=== PATIENT | female | born 1960 | race Hispanic/Latino ===

== ENCOUNTER 2022-04-28 13:15 | Inpatient (IN) | payer MEDICARE ==
[2022-04-28] MEDS ORDERED: IPRATROPIUM 0.02% NEBU 2.5 ML IH ONE (13:53)
[2022-04-28] MEDS ORDERED: ALBUTEROL 2.5 MG/3 ML NEBU IH ONE (13:53)
[2022-04-28] MEDS ORDERED: methylPREDNISolone Sod Succinate 125 MG/2 ML INJ IV ONE (13:53)
[2022-04-28] MEDS ORDERED: MAGNESIUM SULFATE 2 GM/50 ML BAG IV ONE (13:56)
--- NOTE | 2022-04-28 14:00 | Emergency Department Report ---
<RANJAN HERNÁNDEZ - Last Filed: 04/28/22 16:04> ED Shortness of Breath HPI - General Chief Complaint: Dyspnea/Respdistress Stated Complaint: JAIME Time Seen by Provider: 04/28/22 13:25 Source: patient, EMS Mode of arrival: Stretcher Limitations: No Limitations - History of Present Illness Initial Comments: This is a 61-year-old female with a history of end-stage renal disease (dialysis dependent) who [facility] a [facility] for the last 2 weeks. Patient presents to the emergency department complaining of shortness of breath which started approximately 2 days ago. Patient reports a "wet" cough, that she still is unable to expectorate. Patient denies chest pain, fever, chills. Patient denies worsening of lower extremity edema or lower extremity pain. Patient reports that exertion and movement makes the shortness of breath worse, and the oxygen that she was put on prior to coming to the emergency department has helped with her shortness of breath. Patient was placed on a nonrebreather at the penitentiary, as she was hypoxic at the penitentiary and remained hypoxic abnormality. Patient is not home O2 dependent. Patient has not missed any dialysis, and her last one was on Thursday. Patient was tested for and confirmed positive for COVID-19, today. - Related Data Allergies Allergy/AdvReac Type Severity Reaction Status Date / Time NSAIDS (Non-Steroidal Allergy Rash Verified 04/28/22 13:30 Anti-Inflamma Sulfa (Sulfonamide Allergy Rash Verified 04/28/22 13:30 Antibiotics) ED Review of Systems Comment: All other systems reviewed and negative Constitutional: denies: chills, fever, weakness Eyes: denies: eye pain, eye discharge, vision change ENT: denies: ear pain, throat pain Respiratory: cough, shortness of breath, SOB with exertion, SOB at rest, wheezing Cardiovascular: edema. denies: chest pain, palpitations Endocrine: no symptoms reported Gastrointestinal: denies: abdominal pain, nausea, diarrhea Genitourinary: denies: urgency, dysuria, discharge Musculoskeletal: denies: back pain, joint swelling, arthralgia Skin: denies: rash, lesions Neurological: denies: headache, weakness, paresthesias Psychiatric: denies: anxiety, depression Hematological/Lymphatic: denies: easy bleeding, easy bruising ED Past Medical Hx - Past Medical History Previous Medical History?: Yes Hx Hypertension: Yes Hx Congestive Heart Failure: No Hx Renal Disease: Yes Additional medical history: ESRD, Hypothyroidism - Social History Other Social History: Has lived in a penitentiary for the last 2 weeks ED Physical Exam - General Limitations: No Limitations, Physical Limitation General appearance: alert, in no apparent distress, obese - Head Head exam: Present: atraumatic, normocephalic, normal inspection - Eye Eye exam: Present: normal appearance, PERRL, EOMI - ENT ENT exam: Present: mucous membranes moist - Neck Neck exam: Present: normal inspection, full ROM - Respiratory Respiratory exam: Present: normal lung sounds bilaterally, wheezes, rales, rhonchi, prolonged expiratory. Absent: respiratory distress - Cardiovascular Cardiovascular Exam: Present: regular rate, normal rhythm, tachycardia. Absent: systolic murmur, diastolic murmur, rubs, gallop - GI/Abdominal GI/Abdominal exam: Present: soft, normal bowel sounds - Extremities Exam Extremities exam: Present: normal inspection, pedal edema (2+ pitting edema bilaterally; patient reports that this is chronic). Absent: calf tenderness - Back Exam Back exam: Present: normal inspection - Neurological Exam Neurological exam: Present: alert, oriented X3, CN II-XII intact. Absent: normal gait - Psychiatric Psychiatric exam: Present: normal affect, normal mood, flat affect. Absent: depressed, suicidal ideation - Skin Skin exam: Present: warm, dry, intact, normal color. Absent: rash ED Medical Decision Making - EKG Data EKG shows normal: sinus rhythm Rate: normal - EKG Data When compared to previous EKG there are: previous EKG unavailable Interpretation: nonspecific ST-T wave geovanni, other (PACs, Q waves in 3 and aVF concerning for remote inferior infarct) - Differential Diagnosis Viral pneumonia, bacterial pneumonia, fluid overload, COPD,ACS ED Disposition Clinical Impression: Shortness of breath, COVID-19, Hypoxia CHF (congestive heart failure) Qualifiers: Heart failure type: unspecified Heart failure chronicity: unspecified Qualified Code(s): I50.9 - Heart failure, unspecified Disposition: 09 ADMITTED INPATIENT Does the pt Need Aspirin: No Condition: Serious Referrals: RAQUEL GAR MD [Primary Care Provider] - 3-5 Days <UNIQUE SHEFFIELD - Last Filed: 04/28/22 22:37> ED Review of Systems ROS: Stated complaint: JAIME Other details as noted in HPI ED Course Vital Signs 04/28/22 04/28/22 04/28/22 13:22 13:33 13:45 Temperature 99 F Pulse Rate 92 H 97 H 95 H Pulse Rate [ Anterior Bilateral Throughout] Respiratory 18 24 22 Rate Respiratory Rate [Anterior Bilateral Throughout] Blood Pressure 140/74 Blood Pressure 130/73 [Left] O2 Sat by Pulse 94 97 86 Oximetry 04/28/22 04/28/22 04/28/22 13:50 13:56 14:01 Temperature Pulse Rate 100 H 95 H Pulse Rate [ Anterior Bilateral Throughout] Respiratory 26 H 31 H Rate Respiratory Rate [Anterior Bilateral Throughout] Blood Pressure 140/74 Blood Pressure [Left] O2 Sat by Pulse 92 98 93 Oximetry 04/28/22 04/28/22 04/28/22 14:12 14:15 14:31 Temperature Pulse Rate 96 H 93 H Pulse Rate [ 97 H Anterior Bilateral Throughout] Respiratory 25 H 15 Rate Respiratory 20 Rate [Anterior Bilateral Throughout] Blood Pressure 135/75 135/75 Blood Pressure [Left] O2 Sat by Pulse 94 87 Oximetry 04/28/22 04/28/22 04/28/22 14:45 15:01 15:15 Temperature Pulse Rate 90 92 H 86 Pulse Rate [ Anterior Bilateral Throughout] Respiratory 24 15 21 Rate Respiratory Rate [Anterior Bilateral Throughout] Blood Pressure 127/68 135/75 127/74 Blood Pressure [Left] O2 Sat by Pulse 92 93 Oximetry 04/28/22 04/28/22 04/28/22 15:31 15:45 16:01 Temperature Pulse Rate 90 90 89 Pulse Rate [ Anterior Bilateral Throughout] Respiratory 19 27 H 24 Rate Respiratory Rate [Anterior Bilateral Throughout] Blood Pressure 127/74 137/74 137/74 Blood Pressure [Left] O2 Sat by Pulse Oximetry 04/28/22 04/28/22 04/28/22 16:15 16:31 16:45 Temperature Pulse Rate 87 88 89 Pulse Rate [ Anterior Bilateral Throughout] Respiratory 21 15 22 Rate Respiratory Rate [Anterior Bilateral Throughout] Blood Pressure 137/71 137/71 145/70 Blood Pressure [Left] O2 Sat by Pulse Oximetry 04/28/22 04/28/22 04/28/22 17:01 17:15 17:31 Temperature Pulse Rate 89 91 H 87 Pulse Rate [ Anterior Bilateral Throughout] Respiratory 24 12 11 L Rate Respiratory Rate [Anterior Bilateral Throughout] Blood Pressure 145/70 144/78 144/78 Blood Pressure [Left] O2 Sat by Pulse Oximetry 04/28/22 04/28/22 04/28/22 17:45 19:37 21:21 Temperature Pulse Rate 84 93 H 93 H Pulse Rate [ Anterior Bilateral Throughout] Respiratory 23 20 20 Rate Respiratory Rate [Anterior Bilateral Throughout] Blood Pressure 144/76 Blood Pressure 124/70 158/85 [Left] O2 Sat by Pulse 91 88 Oximetry - Reevaluation(s) Reevaluation #1: 04/28/22 20:30 Pt signed to me at shift change at 15:00 PM -with dyspnea -lab reviewed and noted with elevated BNP at 13, 672 with CXR with vascular congestion with cardiomegaly --consisted with heart failure-- also noted with acute renal failure with BUN/Cr 39/3.7 and could also be as a result of dehydration-- Pt is also diagnosed with Covid 19 today. Given 40 mg IV lasix for the congestion and will consider admission to the ospitalist considering this patient age and clinical picture. 04/28/22 22:33 Dr Faust consulted who accept pt for further evaluation and treatment - Consultations Consultation #1: 04/28/22 22:34 Dr Faust ED Medical Decision Making - Lab Data Result diagrams: 04/28/22 14:49 04/28/22 14:49 Critical Care Time: Yes (60) Critical care time in (mins) excluding proc time.: 60 Critical care attestation.: If time is entered above; I have spent that time in minutes in the direct care of this critically ill patient, excluding procedure time. Pt present with SOB and noted to have Covid 19 and acute CHF and due to high probability of clinically significant, life threatening deterioration, this patient required my highest level of preparedness to intervene emergently and I personally spent this critical care time directly and personally managing this patient. This critical care time included obtaining a history; examining this patient; pulse oximetry ; ordering and review of studies ; arranging urgent treatment with development of a management plan ; evaluation of patient's response to treatment ; frequent reassessment ; and, discussion with other providers. This critical care time was performed to assess and manage the high probability of imminent, life-threatening deterioration that could result in m ultiple organ damage if not done in a timely fashion. ED Disposition Is pt being admited?: No Time of Disposition: 22:37
--- NOTE | 2022-04-28 14:43 | XRay Report ---
CHEST 1 VIEW 04/28/2022 1:36 PM INDICATION / CLINICAL INFORMATION: Dyspnea. COMPARISON: None available. FINDINGS: SUPPORT DEVICES: Right IJ CVL tip projects over the superior cavoatrial junction. HEART / MEDIASTINUM: Mild cardiomegaly. LUNGS / PLEURA: Bibasilar opacities, likely mild atelectasis. No pneumothorax. ADDITIONAL FINDINGS: No significant additional findings. Signer Name: Vidal Hernadez MD Signed: 04/28/2022 2:39 PM Workstation Name: [employer]
[2022-04-28 17:46] LABS: Albumin 2.8 g/dL (3.9-5); Calcium 8.2 mg/dL (8.4-10.2)
[2022-04-28 17:56] LABS: Hematocrit 30.4 % (30.3-42.9); Hemoglobin 9.6 gm/dl (10.1-14.3); Mean Corpuscular HGB Conc 31 % (30-34); Mean Corpuscular Volume 99 fl (79-97); Platelet Count 187 K/mm3 (140-440); Red Blood Count 3.08 M/mm3 (3.65-5.03); Red Cell Distribution Width 17.7 % (13.2-15.2)
[2022-04-28 18:07] LABS: INR 0.91 (0.87-1.13)
[2022-04-28 18:08] LABS: Partial Thromboplastin Time 33.8 Sec. (24.2-36.6)
[2022-04-28 19:16] LABS: Chol/HDL Ratio 2.4 %
[2022-04-28 19:55] LABS: Anisocytosis 1+; Band Neutrophils # (Manual) 1.2 K/mm3; Basophils % (Manual) 0 % (0.0-1.8); Eosinophils % (Manual) 0 % (0.0-4.3); Platelet Estimate Consistent w Auto; Total Cells Counted 100
[2022-04-28] MEDS ORDERED: FUROSEMIDE 40 MG/4 ML INJ IV ONE (20:51)
[2022-04-28] MEDS ORDERED: ACETAMINOPHEN 325 MG TAB PO PRN (22:37)
[2022-04-28] MEDS ORDERED: MORPHINE 2 MG/1 ML INJ IV PRN ×2 (22:37→23:21)
[2022-04-28] MEDS ORDERED: ONDANSETRON 4 MG/2 ML INJ IV PRN ×2 (22:37→23:21)
[2022-04-28] MEDS ORDERED: MORPHINE 4 MG/1 ML INJ IV PRN (23:21)
[2022-04-28] MEDS ORDERED: ALBUTEROL 2.5 MG/3 ML NEBU IH PRN (23:21)
--- NOTE | 2022-04-28 23:33 | History and Physical Report ---
History of Present Illness Date of examination: 04/28/22 Date of admission: 04/28/22 22:37 Chief complaint: Dyspnea, respiratory distress History of present illness: 61-year-old female with a history of end-stage renal disease (dialysis dependent) who lives in a custodial for rehabilitation for the last 2 weeks was brought to the emergency department complaining of shortness of breath which started approximately 2 days ago. Patient reports a "wet" cough, that she still is unable to expectorate. Patient denies chest pain, fever, chills. Patient denies worsening of lower extremity edema or lower extremity pain. Patient reports that exertion and movement makes the shortness of breath worse, and the oxygen that she was put on prior to coming to the emergency department has helped with her shortness of breath. Patient was placed on a nonrebreather at the custodial, as she was hypoxic at the custodial . Patient is not home O2 dependent. Patient has not missed any dialysis, and her last one was on Thursday. Patient was tested for and confirmed positive for COVID-19, today. In the emergency room patient is found to have BUN of 39, creatinine 3.7, troponin 0.075 and proBNP 13457, chest x-ray shows bibasilar opacities, likely mild atelectasis.'s were going to admit the patient we will put the patient on neb treatment steroid antibiotic consult infectious disease and nephrology Past History Past Medical History: ESRD, hypertension, hypothyroidism, renal failure Past Surgical History: No surgical history Social history: no significant social history Family history: hypertension Medications and Allergies Allergies Allergy/AdvReac Type Severity Reaction Status Date / Time NSAIDS (Non-Steroidal Allergy Rash Verified 04/28/22 13:30 Anti-Inflamma Sulfa (Sulfonamide Allergy Rash Verified 04/28/22 13:30 Antibiotics) Home Medications Medication Instructions Recorded Confirmed Last Taken Type Ascorbic Acid [Vitamin C] 500 mg PO DAILY 04/28/22 04/28/22 Unknown History Ferrous Sulfate [Ferrous Sulfate 324 mg PO DAILY 04/28/22 04/28/22 Unknown History 324 MG] Levothyroxine Sodium 200 mcg PO DAILY 04/28/22 04/28/22 Unknown History [Levothyroxine] Venlafaxine [Effexor 37.5mg tab] 37.5 mg PO QDAY 04/28/22 04/28/22 Unknown History carvediloL [Coreg] 12.5 mg PO BID 04/28/22 04/28/22 Unknown History sevelamer HCL [Sevelamer HCl] 800 mg PO DAILY 04/28/22 04/28/22 Unknown History Active Meds: Active Medications Acetaminophen (Acetaminophen 325 Mg Tab) 650 mg PO Q4H PRN PRN Reason: Pain MILD(1-3)/Fever >100.5/KENDALL Morphine Sulfate (Morphine 2 Mg/1 Ml Inj) 2 mg IV Q4H PRN PRN Reason: Pain, Moderate (4-6) Ondansetron HCl (Ondansetron 4 Mg/2 Ml Inj) 4 mg IV Q8H PRN PRN Reason: Nausea And Vomiting Sodium Chloride (Sodium Chloride 0.9% 10 Ml Flush Syringe) 10 ml IV BID TOSHIA Sodium Chloride (Sodium Chloride 0.9% 10 Ml Flush Syringe) 10 ml IV PRN PRN PRN Reason: LINE FLUSH Review of Systems All systems: negative Constitutional: fatigue, malaise, lethargy Cardiovascular: edema, shortness of breath, dyspnea on exertion Respiratory: shortness of breath, dyspnea on exertion Exam - Constitutional Vitals: Temp Pulse Resp BP Pulse Ox 99 F 93 H 20 158/85 88 04/28/22 13:22 04/28/22 21:21 04/28/22 21:21 04/28/22 21:21 04/28/22 21:21 General appearance: Present: no acute distress, well-nourished - EENT Eyes: Present: PERRL ENT: hearing intact, clear oral mucosa - Neck Neck: Present: supple, normal ROM - Respiratory Respiratory effort: normal Respiratory: bilateral: diminished - Cardiovascular Heart Sounds: Present: S1 & S2. Absent: rub, click - Extremities Extremities: pulses symmetrical, No edema Peripheral Pulses: within normal limits - Abdominal General gastrointestinal: Present: soft, non-tender, non-distended, normal bowel sounds Female genitourinary: Present: normal - Integumentary Integumentary: Present: clear, warm, dry - Musculoskeletal Musculoskeletal: gait normal, strength equal bilaterally - Psychiatric Psychiatric: appropriate mood/affect, intact judgment & insight - Neurologic Neurologic: CNII-XII intact, moves all extremities HEART Score - HEART Score Troponin: Troponin T 0.075 ng/mL (0.00-0.029) H 04/28/22 14:49 Results - Labs CBC & Chem 7: 04/28/22 14:49 04/28/22 14:49 Labs: Laboratory Last Values WBC 8.4 K/mm3 (4.5-11.0) 04/28/22 14:49 RBC 3.08 M/mm3 (3.65-5.03) L 04/28/22 14:49 Hgb 9.6 gm/dl (10.1-14.3) L 04/28/22 14:49 Hct 30.4 % (30.3-42.9) 04/28/22 14:49 MCV 99 fl (79-97) H 04/28/22 14:49 MCH 31 pg (28-32) 04/28/22 14:49 MCHC 31 % (30-34) 04/28/22 14:49 RDW 17.7 % (13.2-15.2) H 04/28/22 14:49 Plt Count 187 K/mm3 (140-440) 04/28/22 14:49 Baso % (Auto) Dance [employer] Manager 04/28/22 14:49 Add Manual Diff Complete 04/28/22 14:49 Total Counted 100 04/28/22 14:49 Seg Neuts % (Manual) 78.0 % (40.0-70.0) H 04/28/22 14:49 Band Neutrophils % 14.0 % 04/28/22 14:49 Lymphocytes % (Manual) 3.0 % (13.4-35.0) L 04/28/22 14:49 Reactive Lymphs % (Man) 0 % 04/28/22 14:49 Monocytes % (Manual) 5.0 % (0.0-7.3) 04/28/22 14:49 Eosinophils % (Manual) 0 % (0.0-4.3) 04/28/22 14:49 Basophils % (Manual) 0 % (0.0-1.8) 04/28/22 14:49 Metamyelocytes % 0 % 04/28/22 14:49 Myelocytes % 0 % 04/28/22 14:49 Promyelocytes % 0 % 04/28/22 14:49 Blast Cells % 0 % 04/28/22 14:49 Nucleated RBC % Not Reportable 04/28/22 14:49 Seg Neutrophils # Man 6.6 K/mm3 (1.8-7.7) 04/28/22 14:49 Band Neutrophils # 1.2 K/mm3 04/28/22 14:49 Lymphocytes # (Manual) 0.3 K/mm3 (1.2-5.4) L 04/28/22 14:49 Abs React Lymphs (Man) 0.0 K/mm3 04/28/22 14:49 Monocytes # (Manual) 0.4 K/mm3 (0.0-0.8) 04/28/22 14:49 Eosinophils # (Manual) 0.0 K/mm3 (0.0-0.4) 04/28/22 14:49 Basophils # (Manual) 0.0 K/mm3 (0.0-0.1) 04/28/22 14:49 Metamyelocytes # 0.0 K/mm3 04/28/22 14:49 Myelocytes # 0.0 K/mm3 04/28/22 14:49 Promyelocytes # 0.0 K/mm3 04/28/22 14:49 Blast Cells # 0.0 K/mm3 04/28/22 14:49 WBC Morphology Not Reportable 04/28/22 14:49 Hypersegmented Neuts Not Reportable 04/28/22 14:49 Hyposegmented Neuts Not Reportable 04/28/22 14:49 Hypogranular Neuts Not Reportable 04/28/22 14:49 Smudge Cells Not Reportable 04/28/22 14:49 Toxic Granulation Not Reportable 04/28/22 14:49 Toxic Vacuolation Not Reportable 04/28/22 14:49 Dohle Bodies Not Reportable 04/28/22 14:49 Pelger-Huet Anomaly Not Reportable 04/28/22 14:49 Kristi Rods Not Reportable 04/28/22 14:49 Platelet Estimate Consistent w auto 04/28/22 14:49 Clumped Platelets Not Reportable 04/28/22 14:49 Plt Clumps, EDTA Not Reportable 04/28/22 14:49 Large Platelets Not Reportable 04/28/22 14:49 Giant Platelets Not Reportable 04/28/22 14:49 Platelet Satelliting Not Reportable 04/28/22 14:49 Plt Morphology Comment Not Reportable 04/28/22 14:49 RBC Morphology Not Reportable 04/28/22 14:49 Dimorphic RBCs Not Reportable 04/28/22 14:49 Polychromasia Not Reportable 04/28/22 14:49 Hypochromasia Not Reportable 04/28/22 14:49 Poikilocytosis Not Reportable 04/28/22 14:49 Anisocytosis 1+ 04/28/22 14:49 Microcytosis Not Reportable 04/28/22 14:49 Macrocytosis Not Reportable 04/28/22 14:49 Spherocytes Not Reportable 04/28/22 14:49 Pappenheimer Bodies Not Reportable 04/28/22 14:49 Sickle Cells Not Reportable 04/28/22 14:49 Target Cells Not Reportable 04/28/22 14:49 Tear Drop Cells Not Reportable 04/28/22 14:49 Ovalocytes Not Reportable 04/28/22 14:49 Helmet Cells Not Reportable 04/28/22 14:49 Jett-Hartland Bodies Not Reportable 04/28/22 14:49 [place] Rings Not Reportable 04/28/22 14:49 [place] Cells Not Reportable 04/28/22 14:49 Bite Cells Not Reportable 04/28/22 14:49 Crenated Cell Not Reportable 04/28/22 14:49 Elliptocytes Not Reportable 04/28/22 14:49 Acanthocytes (Spur) Not Reportable 04/28/22 14:49 Rouleaux Not Reportable 04/28/22 14:49 Hemoglobin C Crystals Not Reportable 04/28/22 14:49 Schistocytes Not Reportable 04/28/22 14:49 Malaria parasites Not Reportable 04/28/22 14:49 Mayank Bodies Not Reportable 04/28/22 14:49 Hem Pathologist Commnt No 04/28/22 14:49 PT 13.5 Sec. (12.2-14.9) 04/28/22 14:49 INR 0.91 (0.87-1.13) 04/28/22 14:49 APTT 33.8 Sec. (24.2-36.6) 04/28/22 14:49 Sodium 133 mmol/L (137-145) L 04/28/22 14:49 Potassium 4.6 mmol/L (3.6-5.0) 04/28/22 14:49 Chloride 98.7 mmol/L (98-107) 04/28/22 14:49 Carbon Dioxide 21 mmol/L (22-30) L 04/28/22 14:49 Anion Gap 18 mmol/L 04/28/22 14:49 BUN 39 mg/dL (7-17) H 04/28/22 14:49 Creatinine 3.7 mg/dL (0.6-1.2) H 04/28/22 14:49 Estimated GFR 13 ml/min 04/28/22 14:49 BUN/Creatinine Ratio 11 % 04/28/22 14:49 Glucose 83 mg/dL (65-100) 04/28/22 14:49 Calcium 8.2 mg/dL (8.4-10.2) L 04/28/22 14:49 Total Bilirubin 0.20 mg/dL (0.1-1.2) 04/28/22 14:49 AST 26 units/L (5-40) 04/28/22 14:49 ALT 14 units/L (7-56) 04/28/22 14:49 Alkaline Phosphatase 70 units/L (35-129) 04/28/22 14:49 Troponin T 0.075 ng/mL (0.00-0.029) H 04/28/22 14:49 NT-Pro-B Natriuret Pep 97987 pg/mL (0-900) H 04/28/22 14:49 Total Protein 5.6 g/dL (6.3-8.2) L 04/28/22 14:49 Albumin 2.8 g/dL (3.9-5) L 04/28/22 14:49 Albumin/Globulin Ratio 1.0 % 04/28/22 14:49 Triglycerides 128 mg/dL (2-149) 04/28/22 14:49 Cholesterol 154 mg/dL (50-199) 04/28/22 14:49 LDL Cholesterol Direct 63 mg/dL (50-130) 04/28/22 14:49 HDL Cholesterol 64 mg/dL (40-59) H 04/28/22 14:49 Cholesterol/HDL Ratio 2.40 % 04/28/22 14:49 Microbiology: Microbiology 04/28/22 16:49 Peripheral/Venous Blood Culture - Preliminary Culture in Progress 04/28/22 16:49 Peripheral/Venous Blood Culture - Preliminary Culture in Progress - Imaging and Cardiology Chest x-ray: report reviewed Assessment and Plan VTE prophylaxis?: Chemical Plan of care discussed with patient/family: Yes - Patient Problems (1) COVID-19 Current Visit: Yes Status: Acute Plan to address problem: Admit the patient to the medical telemetry. Patient is on high flow nasal cannula. DuoNeb nebulizer every 4 hours. Albuterol via nebulizer every 4 hours as needed. Decadron 10 mg IV daily. Zithromax to 50 mg p.o. daily. We do the blood culture and sputum culture. We will consult infectious disease for evaluation (2) End-stage renal disease on hemodialysis Current Visit: Yes Status: Acute Plan to address problem: Will consult nephrology for hemodialysis in the morning. Continue home me dication. Recheck BMP in the morning (3) Hypothyroidism Current Visit: Yes Status: Acute Plan to address problem: Is stable. We will continue the home medication (4) CHF (congestive heart failure) Current Visit: Yes Status: Acute Qualifiers: Heart failure type: unspecified Heart failure chronicity: unspecified Qualified Code(s): I50.9 - Heart failure, unspecified Plan to address problem: Fluid restriction. Maintain input output. Daily weight. Lasix 40 mg IV x1 dose. Echocardiogram. Will consult nephrology for hemodialysis (5) Hypoxia Current Visit: Yes Status: Acute Plan to address problem: Patient is on high flow nasal cannula. DuoNeb nebulizer every 4 hours. Albuterol via nebulizer every 4 hours as needed. (6) Shortness of breath Current Visit: Yes Status: Acute Plan to address problem: Patient is on high flow nasal cannula. DuoNeb nebulizer every 4 hours. Albuterol via nebulizer every 4 hours as needed. Decadron 10 mg IV daily. Zithromax to 50 mg p.o. daily. We do the blood culture and sputum culture. We will consult infectious disease for evaluation (7) DVT prophylaxis Current Visit: Yes Status: Acute Plan to address problem: Heparin 5000 units subcu every 8 hours for DVT prophylaxis. Pepcid 20 mg p.o. twice daily for GI prophylaxis. Patient is a full code
[2022-04-29] MEDS: IPRATROPIUM/ALBUTEROL SULFATE 3 ML AMPUL.NEB IH SCH ×4 (02:36→20:19)
[2022-04-29] MEDS: HEPARIN 5,000 UNIT/1 ML VIAL SUB-Q SCH ×3 (05:48→23:28)
[2022-04-29] MEDS: LEVOTHYROXINE 100 MCG TAB PO SCH (05:48)
--- NOTE | 2022-04-29 08:33 | Consultation ---
History of Present Illness - Reason for Consult Consult date: 04/29/22 COVID Requesting physician: FRANKLYN NULL - History of Present Illness The patient is a 61-year-old female with ESRD on HD, hypertension, hypothyroidism, [facility] resident was brought into the emergency room due to shortness of breath. She [facility] positive for [facility]-19 at the [facility], developed worsening shortness of breath, noted to be hypoxic, hence was transferred here and hospitalized. Upon evaluation here, afebrile, initially was on Venturi mask, now on high flow nasal cannula. ID was consulted for additional management. Labs showed normal WBC, normal platelet, creatinine 3.7, proBNP elevated 13,672, troponin 0.07. Chest x-ray showed bibasilar opacities, PermCath in place. Review of Systems: General: no fevers,chills or rigors HEENT: no new visual disturbance Respiratory: Shortness of breath better with oxygen Cardiovascular: No chest pain, syncope Gastrointestinal: No nausea, vomiting or diarrhea Genitourinary: No dysuria or hematuria Musculoskeletal: No new or worsening neck pain or back pain Neurologic: No headaches, seizures Hematologic: No easy bruising or bleeding Endocrine: No night sweats or acute weight loss Skin: negative for rash, jaundice Psychiatric: No suicidal or homicidal ideation Past History Past Medical History: ESRD, hypertension, hypothyroidism, renal failure Past Surgical History: No surgical history Social history: no significant social history Family history: hypertension Medications and Allergies Allergies Allergy/AdvReac Type Severity Reaction Status Date / Time NSAIDS (Non-Steroidal Allergy Rash Verified 04/28/22 13:30 Anti-Inflamma Sulfa (Sulfonamide Allergy Rash Verified 04/28/22 13:30 Antibiotics) Home Medications Medication Instructions Recorded Confirmed Last Taken Type Ascorbic Acid [Vitamin C] 500 mg PO DAILY 04/28/22 04/28/22 Unknown History Ferrous Sulfate [Ferrous Sulfate 324 mg PO DAILY 04/28/22 04/28/22 Unknown History 324 MG] Levothyroxine Sodium 200 mcg PO DAILY 04/28/22 04/28/22 Unknown History [Levothyroxine] Venlafaxine [Effexor 37.5mg tab] 37.5 mg PO QDAY 04/28/22 04/28/22 Unknown History carvediloL [Coreg] 12.5 mg PO BID 04/28/22 04/28/22 Unknown History sevelamer HCL [Sevelamer HCl] 800 mg PO TID 04/28/22 04/28/22 Unknown History Active Meds: Active Medications Acetaminophen (Acetaminophen 325 Mg Tab) 650 mg PO Q4H PRN PRN Reason: Pain MILD(1-3)/Fever >100.5/KENDALL Albuterol (Albuterol 2.5 Mg/3 Ml Nebu) 2.5 mg IH Q3HRT PRN PRN Reason: Shortness Of Breath Albuterol/Ipratropium (Ipratropium/Albuterol Sulfate 3 Ml Ampul.Neb) 1 ampul IH Q6HRT [facility] Last Admin: 04/29/22 02:36 Dose: 1 ampul Ascorbic Acid (Ascorbic Acid 500 Mg Tab) 500 mg PO DAILY [facility] Azithromycin (Azithromycin 250 Mg Tab) 250 mg PO QDAY [facility]; Protocol Carvedilol (Carvedilol 12.5 Mg Tab) 12.5 mg PO BID [facility] Dexamethasone (Dexamethasone 4 Mg/Ml Vial) 8 mg IV DAILY [facility] Famotidine (Famotidine 20 Mg Tab) 20 mg PO DAILY [facility] Ferrous Sulfate (Ferrous Sulfate 325 Mg Tab) 325 mg PO DAILY [facility] Furosemide (Furosemide 40 Mg/4 Ml Inj) 40 mg IV 0600,1800 [facility] Heparin Sodium (Porcine) (Heparin 5,000 Unit/1 Ml Vial) 5,000 unit SUB-Q Q8HR [facility] Last Admin: 04/29/22 05:48 Dose: 5,000 unit Levothyroxine Sodium (Levothyroxine 100 Mcg Tab) 200 mcg PO QAM@0600 [facility] Last Admin: 04/29/22 05:48 Dose: 200 mcg Morphine Sulfate (Morphine 2 Mg/1 Ml Inj) 2 mg IV Q4H PRN PRN Reason: Pain, Moderate (4-6) Morphine Sulfate (Morphine 4 Mg/1 Ml Inj) 4 mg IV Q4H PRN PRN Reason: Pain , Severe (7-10) Ondansetron HCl (Ondansetron 4 Mg/2 Ml Inj) 4 mg IV Q8H PRN PRN Reason: Nausea And Vomiting Sevelamer Carbonate (Sevelamer Carbonate 800 Mg Tab) 800 mg PO TIDWM [facility] Sodium Chloride (Sodium Chloride 0.9% 10 Ml Flush Syringe) 10 ml IV BID [facility] Sodium Chloride (Sodium Chloride 0.9% 10 Ml Flush Syringe) 10 ml IV PRN PRN PRN Reason: LINE FLUSH Physical Examination - Physical Exam Narrative exam: Physical Exam: Constitutional: Alert, cooperative. No acute distress Head, Ears, Nose: Normocephalic, atraumatic. External ears, nose normal Eyes: Conjunctivae/corneas clear. No icterus. No ptosis. Neck: Supple, no meningeal signs Cardiovascular: S1, S2 + Respiratory: AE fair bilaterally GI: Soft, non-tender; bowel sounds normal. No peritoneal signs Musculoskeletal: No pedal edema, no cyanosis. Skin: No rash or abscess Hem/Lymphatic: No palpable cervical or supraclavicular nodes. No lymphangitis Psych: Mood ok. Affect normal Neurological: Awake, alert, oriented. - Constitutional Vitals: Vital Signs Temp Pulse Resp BP Pulse Ox 98.8 F 81 18 156/83 99 04/29/22 06:53 04/29/22 06:53 04/29/22 06:53 04/29/22 06:53 04/29/22 06:53 Temperature -Last 24 Hours Temperature 98.8 F Temperature 97.4 F Temperature 99 F Results - Labs CBC & Chem 7: 04/28/22 14:49 04/28/22 14:49 Labs: Abnormal lab results 04/28/22 04/28/22 04/28/22 Range/Units 14:49 14:49 14:49 RBC 3.08 L (3.65-5.03) M/mm3 Hgb 9.6 L (10.1-14.3) gm/dl MCV 99 H (79-97) fl RDW 17.7 H (13.2-15.2) % Seg Neuts % (Manual) 78.0 H (40.0-70.0) % Lymphocytes % (Manual) 3.0 L (13.4-35.0) % Lymphocytes # (Manual) 0.3 L (1.2-5.4) K/mm3 Sodium 133 L (137-145) mmol/L Carbon Dioxide 21 L (22-30) mmol/L BUN 39 H (7-17) mg/dL Creatinine 3.7 H (0.6-1.2) mg/dL Calcium 8.2 L (8.4-10.2) mg/dL Troponin T 0.075 H (0.00-0.029) ng/mL NT-Pro-B Natriuret Pep 18040 H (0-900) pg/mL Total Protein 5.6 L (6.3-8.2) g/dL Albumin 2.8 L (3.9-5) g/dL HDL Cholesterol 64 H (40-59) mg/dL - Imaging and Cardiology Chest x-ray: report reviewed, image reviewed (bibasilar infiltrates. PermCath +) Assessment and Plan Cultures: SARS CoV2 PCR: Pending 04/28/2022 blood culture: In process A/P: 61-year-old female with ESRD on HD, hypertension, hypothyroidism, [facility] resident was brought into the emergency room due to shortness of breath: #Bilateral pneumonia: Secondary to COVID-19 #Acute hypoxic respiratory failure: Requiring HFNC. #ESRD on HD: Renally adjust antibiotics #CHF Recs: -IV/PO Dexamethasone x 10 days -Continue empiric azithromycin for 5 days -Not a candidate for remdesivir due to renal failure -since she is requiring HFNC >30 L/min, if CRP >7.5, would be a candidate for Actemra 8 mg/kg x 1 (depending on availability) -prophylactic anticoagulation based on d-dimer per hospital protocol -trend ferritin, d-dimer, CRP every 2-3 days Pauline Costello MD, FACP, [facility] O: [phone] F: [phone] C: [phone]
[2022-04-29 08:50] LABS: Calcium 8.7 mg/dL (8.4-10.2)
[2022-04-29 09:10] LABS: C-Reactive Protein 10.5 mg/dL (0.00-1.30)
[2022-04-29] MEDS: dexAMETHasone 4 MG/ML VIAL IV SCH (09:33)
[2022-04-29] MEDS: ASCORBIC ACID 500 MG TAB PO SCH (09:34)
[2022-04-29] MEDS: FERROUS SULFATE 325 MG TAB PO SCH (09:34)
[2022-04-29] MEDS: carvediloL 12.5 MG TAB PO SCH ×2 (09:34→23:27)
[2022-04-29] MEDS: AZITHROMYCIN 250 MG TAB PO SCH (09:34)
[2022-04-29] MEDS: FAMOTIDINE 20 MG TAB PO SCH (09:34)
[2022-04-29] MEDS: SEVELAMER CARBONATE 800 MG TAB PO SCH ×3 (09:34→18:17)
[2022-04-29] MEDS: FUROSEMIDE 40 MG/4 ML INJ IV SCH ×2 (09:43→18:16)
[2022-04-29] MEDS ORDERED: dexAMETHasone 4 MG/ML VIAL IV SCH (10:00)
[2022-04-29] MEDS ORDERED: SODIUM CHLORIDE 0.9% 100 ML IV PRN (10:30)
[2022-04-29 12:33] LABS: Hepatitis B Surface Antigen Non-Reactive (Negative); Hepatitis C Virus Antibody Non-Reactive (NonReactive)
--- NOTE | 2022-04-29 12:49 | Progress Note ---
Assessment and Plan Assessment and plan: #COVID-19 pneumonia #Acute hypoxic respiratory failure - etiology: Secondary to COVID-19 pneumonia + possible acute heart failure - baseline oxygen requirements: Room air - supplemental oxygen: High flow nasal cannula 30 L / 90% FiO2 - Continue protocol: continue pulse oximetry, wean oxygen as tolerated, dexamethasone 8 mg daily x10 days, azithromycin 250 mg daily x5 days (completes on 05/02/2022), airborne and droplet precautions -Infectious disease consulted; appreciate recs. Patient not currently candidate for remdesivir given renal function. Pulmonology consulted; pending recs - continue to monitor #Acute heart failure - Continue CHF exacerbation protocol: Telemetry, Strict I/O, monitor urine output every shift, daily weights, afterload reduction, low-sodium diet, and fluid restriction of approximately 1.5 mL/day, IV Lasix 40 mg twice daily - Supplemental oxygen: High flow nasal cannula 30 L / 90% FiO2 - ProBNP on admission: 13,672 - Pending TTE to evaluate cardiac function - Continue to monitor #Elevated D-dimer D-dimer 1044 Ordering bilateral venous Dopplers to evaluate for possible DVT. Continue to monitor. #ESRD on hemodialysis -Access: Permacath in right upper chest -Outpatient schedule: Unknown -HD center: N/A -Nephrology consulted; appreciate recs. -Renally dose medications and avoid nephrotoxic drugs. Renal diet. #Hypothyroidism Continue home levothyroxine 200 mcg daily #Mild protein caloric malnutrition Albumin 2.5 Starting dietary supplementation Critical Care Billing: The high probability of a clinically significant, sudden or life threatening deterioration of the [respiratory] system(s) required my full and direct attention, intervention and personal management. The aggregate critical care time was [60] minutes. This time is in addition to time spent performing reported procedures but includes the following: [x] Data Review and interpretation [x] Patient assessment and monitoring of vital signs [x] Documentation [x] Medication orders and management Disposition Plan: Continue medical management Total Time Spent with Patient (Minutes): 60 min History Interval history: No acute events overnight. Hospitalist Physical - Constitutional Vitals: Temp Pulse Resp BP Pulse Ox 98.9 F 84 18 157/87 98 04/29/22 10:47 04/29/22 10:47 04/29/22 10:47 04/29/22 10:47 04/29/22 10:47 General appearance: Present: no acute distress, well-nourished - EENT Eyes: Present: PERRL, EOM intact ENT: hearing intact, clear oral mucosa - Neck Neck: Present: supple, normal ROM, other (Permacath in right upper chest) - Respiratory Respiratory effort: labored Respiratory: bilateral: diminished (on HFNC 30L/90 FiO2) - Cardiovascular Rhythm: regular Heart Sounds: Present: S1 & S2 - Extremities Extremities: no ischemia, pulses intact, pulses symmetrical, normal temperature, normal color Extremity abnormal: edema Peripheral Pulses: within normal limits - Abdominal General gastrointestinal: soft, non-tender, non-distended, normal bowel sounds - Integumentary Integumentary: Present: clear, warm, dry - Psychiatric Psychiatric: appropriate mood/affect, cooperative - Neurologic Neurologic: CNII-XII intact - Allied Health Allied health notes reviewed: nursing HEART Score - HEART Score Troponin: Troponin T 0.075 ng/mL (0.00-0.029) H 04/28/22 14:49 Results - Labs CBC & Chem 7: 04/28/22 14:49 04/29/22 08:04 Labs: Laboratory Last Values WBC 8.4 K/mm3 (4.5-11.0) 04/28/22 14:49 RBC 3.08 M/mm3 (3.65-5.03) L 04/28/22 14:49 Hgb 9.6 gm/dl (10.1-14.3) L 04/28/22 14:49 Hct 30.4 % (30.3-42.9) 04/28/22 14:49 MCV 99 fl (79-97) H 04/28/22 14:49 MCH 31 pg (28-32) 04/28/22 14:49 MCHC 31 % (30-34) 04/28/22 14:49 RDW 17.7 % (13.2-15.2) H 04/28/22 14:49 Plt Count 187 K/mm3 (140-440) 04/28/22 14:49 Baso % (Auto) [employer] 04/28/22 14:49 Add Manual Diff Complete 04/28/22 14:49 Total Counted 100 04/28/22 14:49 Seg Neuts % (Manual) 78.0 % (40.0-70.0) H 04/28/22 14:49 Band Neutrophils % 14.0 % 04/28/22 14:49 Lymphocytes % (Manual) 3.0 % (13.4-35.0) L 04/28/22 14:49 Reactive Lymphs % (Man) 0 % 04/28/22 14:49 Monocytes % (Manual) 5.0 % (0.0-7.3) 04/28/22 14:49 Eosinophils % (Manual) 0 % (0.0-4.3) 04/28/22 14:49 Basophils % (Manual) 0 % (0.0-1.8) 04/28/22 14:49 Metamyelocytes % 0 % 04/28/22 14:49 Myelocytes % 0 % 04/28/22 14:49 Promyelocytes % 0 % 04/28/22 14:49 Blast Cells % 0 % 04/28/22 14:49 Nucleated RBC % Not Reportable 04/28/22 14:49 Seg Neutrophils # Man 6.6 K/mm3 (1.8-7.7) 04/28/22 14:49 Band Neutrophils # 1.2 K/mm3 04/28/22 14:49 Lymphocytes # (Manual) 0.3 K/mm3 (1.2-5.4) L 04/28/22 14:49 Abs React Lymphs (Man) 0.0 K/mm3 04/28/22 14:49 Monocytes # (Manual) 0.4 K/mm3 (0.0-0.8) 04/28/22 14:49 Eosinophils # (Manual) 0.0 K/mm3 (0.0-0.4) 04/28/22 14:49 Basophils # (Manual) 0.0 K/mm3 (0.0-0.1) 04/28/22 14:49 Metamyelocytes # 0.0 K/mm3 04/28/22 14:49 Myelocytes # 0.0 K/mm3 04/28/22 14:49 Promyelocytes # 0.0 K/mm3 04/28/22 14:49 Blast Cells # 0.0 K/mm3 04/28/22 14:49 WBC Morphology Not Reportable 04/28/22 14:49 Hypersegmented Neuts Not Reportable 04/28/22 14:49 Hyposegmented Neuts Not Reportable 04/28/22 14:49 Hypogranular Neuts Not Reportable 04/28/22 14:49 Smudge Cells Not Reportable 04/28/22 14:49 Toxic Granulation Not Reportable 04/28/22 14:49 Toxic Vacuolation Not Reportable 04/28/22 14:49 Dohle Bodies Not Reportable 04/28/22 14:49 Pelger-Huet Anomaly Not Reportable 04/28/22 14:49 Kristi Rods Not Reportable 04/28/22 14:49 Platelet Estimate Consistent w auto 04/28/22 14:49 Clumped Platelets Not Reportable 04/28/22 14:49 Plt Clumps, EDTA Not Reportable 04/28/22 14:49 Large Platelets Not Reportable 04/28/22 14:49 Giant Platelets Not Reportable 04/28/22 14:49 Platelet Satelliting Not Reportable 04/28/22 14:49 Plt Morphology Comment Not Reportable 04/28/22 14:49 RBC Morphology Not Reportable 04/28/22 14:49 Dimorphic RBCs Not Reportable 04/28/22 14:49 Polychromasia Not Reportable 04/28/22 14:49 Hypochromasia Not Reportable 04/28/22 14:49 Poikilocytosis Not Reportable 04/28/22 14:49 Anisocytosis 1+ 04/28/22 14:49 Microcytosis Not Reportable 04/28/22 14:49 Macrocytosis Not Reportable 04/28/22 14:49 Spherocytes Not Reportable 04/28/22 14:49 Pappenheimer Bodies Not Reportable 04/28/22 14:49 Sickle Cells Not Reportable 04/28/22 14:49 Target Cells Not Reportable 04/28/22 14:49 Tear Drop Cells Not Reportable 04/28/22 14:49 Ovalocytes Not Reportable 04/28/22 14:49 Helmet Cells Not Reportable 04/28/22 14:49 [place] Bodies Not Reportable 04/28/22 14:49 [place] Rings Not Reportable 04/28/22 14:49 Ehrbie Cells Not Reportable 04/28/22 14:49 Bite Cells Not Reportable 04/28/22 14:49 Crenated Cell Not Reportable 04/28/22 14:49 Elliptocytes Not Reportable 04/28/22 14:49 Acanthocytes (Spur) Not Reportable 04/28/22 14:49 Rouleaux Not Reportable 04/28/22 14:49 Hemoglobin C Crystals Not Reportable 04/28/22 14:49 Schistocytes Not Reportable 04/28/22 14:49 Malaria parasites Not Reportable 04/28/22 14:49 Mayank Bodies Not Reportable 04/28/22 14:49 Hem Pathologist Commnt No 04/28/22 14:49 PT 13.5 Sec. (12.2-14.9) 04/28/22 14:49 INR 0.91 (0.87-1.13) 04/28/22 14:49 APTT 33.8 Sec. (24.2-36.6) 04/28/22 14:49 D-Dimer 1044.30 ng/mlDDU (0-234) H 04/29/22 08:04 Sodium 137 mmol/L (137-145) 04/29/22 08:04 Potassium 4.4 mmol/L (3.6-5.0) 04/29/22 08:04 Chloride 99.1 mmol/L (98-107) 04/29/22 08:04 Carbon Dioxide 27 mmol/L (22-30) 04/29/22 08:04 Anion Gap 15 mmol/L 04/29/22 08:04 BUN 48 mg/dL (7-17) H 04/29/22 08:04 Creatinine 4.0 mg/dL (0.6-1.2) H 04/29/22 08:04 Estimated GFR 11 ml/min 04/29/22 08:04 BUN/Creatinine Ratio 12 % 04/29/22 08:04 Glucose 147 mg/dL (65-100) H 04/29/22 08:04 Calcium 8.7 mg/dL (8.4-10.2) 04/29/22 08:04 Ferritin 458.0 ng/mL (10.0-200.0) H 04/29/22 08:04 Total Bilirubin 0.20 mg/dL (0.1-1.2) 04/28/22 14:49 AST 26 units/L (5-40) 04/28/22 14:49 ALT 14 units/L (7-56) 04/28/22 14:49 Alkaline Phosphatase 70 units/L (35-129) 04/28/22 14:49 Troponin T 0.075 ng/mL (0.00-0.029) H 04/28/22 14:49 C-Reactive Protein 10.50 mg/dL (0.00-1.30) H 04/29/22 08:04 NT-Pro-B Natriuret Pep 08315 pg/mL (0-900) H 04/28/22 14:49 Total Protein 5.6 g/dL (6.3-8.2) L 04/28/22 14:49 Albumin 2.8 g/dL (3.9-5) L 04/28/22 14:49 Albumin/Globulin Ratio 1.0 % 04/28/22 14:49 Triglycerides 128 mg/dL (2-149) 04/28/22 14:49 Cholesterol 154 mg/dL (50-199) 04/28/22 14:49 LDL Cholesterol Direct 63 mg/dL (50-130) 04/28/22 14:49 HDL Cholesterol 64 mg/dL (40-59) H 04/28/22 14:49 Cholesterol/HDL Ratio 2.40 % 04/28/22 14:49 Hepatitis A IgM Ab Non-reactive (NonReactive) 04/29/22 10:27 Hep Bs Antigen Non-reactive (Negative) 04/29/22 10:27 Hep B Core IgM Ab Non-reactive (NonReactive) 04/29/22 10:27 Hepatitis C Antibody Non-reactive (NonReactive) 04/29/22 10:27 Microbiology: Microbiology 04/28/22 16:49 Peripheral/Venous Blood Culture - Preliminary Culture in Progress 04/28/22 16:49 Peripheral/Venous Blood Culture - Preliminary Culture in Progress Pichardo/IV: Voiding Method External Female Catheter Active Medications - Current Medications Current Medications: Generic Name Dose Route Start Last Admin Trade Name Freq PRN Reason Stop Dose Admin Acetaminophen 650 mg 04/28/22 23:21 Acetaminophen 325 Mg Tab PO Q4H PRN Pain MILD(1-3)/Fever >100.5/KENDALL Albuterol 2.5 mg 04/28/22 23:21 Albuterol 2.5 Mg/3 Ml Nebu IH Q3HRT PRN Shortness Of Breath Albuterol/Ipratropium 1 ampul 04/29/22 02:00 04/29/22 08:55 Ipratropium/Albuterol Sulfate 3 Ml Ampul.Neb IH Not Given Q6HRT [facility] Ascorbic Acid 500 mg 04/29/22 10:00 04/29/22 09:34 Ascorbic Acid 500 Mg Tab PO 500 mg DAILY [facility] Administration Azithromycin 250 mg 04/29/22 10:00 04/29/22 09:34 Azithromycin 250 Mg Tab PO 05/03/22 10:01 250 mg QDAY [facility] Administration Protocol Carvedilol 12.5 mg 04/29/22 10:00 04/29/22 09:34 Carvedilol 12.5 Mg Tab PO 12.5 mg BID [facility] Administration Dexamethasone 8 mg 04/29/22 10:00 04/29/22 09:33 Dexamethasone 4 Mg/Ml Vial IV 05/08/22 10:01 8 mg DAILY [facility] Administration Famotidine 20 mg 04/29/22 10:00 04/29/22 09:34 Famotidine 20 Mg Tab PO 20 mg DAILY [facility] Administration Ferrous Sulfate 325 mg 04/29/22 10:00 04/29/22 09:34 Ferrous Sulfate 325 Mg Tab PO 325 mg DAILY [facility] Administration Furosemide 40 mg 04/29/22 07:15 04/29/22 09:43 Furosemide 40 Mg/4 Ml Inj IV 40 mg 0600,1800 [facility] Administration Heparin Sodium (Porcine) 5,000 unit 04/29/22 06:00 04/29/22 05:48 Heparin 5,000 Unit/1 Ml Vial SUB-Q 5,000 unit Q8HR [facility] Administration Sodium Chloride 100 mls @ 999 mls/hr 04/29/22 10:30 Nacl 0.9% IV HOMER PRN Hypotension Levothyroxine Sodium 200 mcg 04/29/22 06:00 04/29/22 05:48 Levothyroxine 100 Mcg Tab PO 200 mcg QAM@0600 [facility] Administration Morphine Sulfate 2 mg 04/28/22 23:21 Morphine 2 Mg/1 Ml Inj IV Q4H PRN Pain, Moderate (4-6) Morphine Sulfate 4 mg 04/28/22 23:21 Morphine 4 Mg/1 Ml Inj IV Q4H PRN Pain , Severe (7-10) Ondansetron HCl 4 mg 04/28/22 23:21 Ondansetron 4 Mg/2 Ml Inj IV Q8H PRN Nausea And Vomiting Sevelamer Carbonate 800 mg 04/29/22 08:00 04/29/22 09:34 Sevelamer Carbonate 800 Mg Tab PO 800 mg TIDWM [facility] Administration Sodium Chloride 10 ml 04/29/22 10:00 04/29/22 09:44 Sodium Chloride 0.9% 10 Ml Flush Syringe IV 10 ml BID [facility] Administration Sodium Chloride 10 ml 04/28/22 23:21 Sodium Chloride 0.9% 10 Ml Flush Syringe IV PRN PRN LINE FLUSH Nutrition/Malnutrition Assess - Dietary Evaluation Nutrition/Malnutrition Findings: Nutrition Notes Start: 04/29/22 12:04 Freq: Status: Active Protocol: Document 04/29/22 12:04 ASHISH (Rec: 04/29/22 12:32 ASHISH [id number]) Nutrition Notes Need for Assessment generated from: MD Order Initial or Follow up Assessment Current Diagnosis CKD (stage V CKD),Hypertension ,Respiratory Failure Other Pertinent Diagnosis ESRD+HD, COVID-19/Pneumonia, CHF, Hypothyroidism. Current Diet Cardiac Diet (since B 04/28), Cardiac -Renal- Diet+D Suppl ( from D 04/29). Labs/Tests 04/29: BUN 48, Crea 4.0, Glu 147. Pertinent Medications 04/29: Vit C, FeSO4, Levothyroxine, Renvela, others nutritionally unremarkable. Height 5 ft 3 in Weight 72.575 kg [place] Body Weight (kg) 52.27 BMI 28.3 Intake Prior to Admission Good Weight change and time frame Pt denies having loss body weight [employer]. Weight Status Overweight Subjective/Other Information RD consult for dietary supplementation assessment. No reports available on Pt's PO intake of meals at the time , will assess at F/U. I will prescribe dietary supplements to compensate for possible poor or insufficient PO intake of meals during LOS. I will recommend renal restriction to current diet, to support Pt's ESRD condition during LOS. Pt is on High Flow Nasal Cannula, O2 saturation @ 91%, according to Physical Assessment History notes. Pt has missing teeth, according to Physical Assessment History notes. Pt is a SNF resident, according to Progress notes. Percent of energy/protein needs met: Prescribed Cardiac -Renal- Diet provides for energy/ protein needs (2,230 Kcal/85 g ) during LOS; additionally, Dietary Supplements will compensate for possible poor or insufficient PO intake of meals with 850 Kcal and 38 g of protein. Burn Absent Trauma Absent GI Symptoms None Food Allergy No Skin Integrity/Comment Assessment WNL. Minimum of two criteria No Fluid Accumulation N/A Reduced Painting Contractor Strength N/A (non-severe) Protein-Calorie Malnutrition N\A #2 Nutrition Diagnosis Altered nutrition-related laboratory values Etiology CKD V, ESRD. As Evidenced by Signs and Symptoms 04/29: BUN 48, Crea 4.0, Glu 147. #1 Nutrition Diagnosis Predicted suboptimal energy intake Etiology Ongoing and concomitant chronic metabolic conditions. As Evidenced by Signs and Symptoms No reports available on Pt's PO intake of meals at the time , MD request for dietary supplements. Is patient on ventilator? No Is Patient Ambulatory and/or Out of Bed No REE-([place]-St. Jeor-confined to bed) 1528.644 Kcal/Kg value to use for calculation 19 Approximate Energy Requirements Using 1379 kcal/Kg Calculation Used for Recommendations Kcal/kg Additional Notes Protein: >1.2 g/Kg ABW; >88 g/ day. Fluids: 1 ml/Kcal, or as per MD. Nutrition Intervention Change Diet Order: Add Renal restriction to Cardiac Diet, and continue as tolerated. Add Supplement/Snack (indicate name/kcal Start 8 fl oz Nepro w/ /protein ) CARBSTEADY; BID Provides kCal: 850 Provides Protein (gm) 38 Goal #1 Compensate, through dietary supplementation, for possible poor or insufficient PO intake of meals during LOS. Goal #2 Help reach and maintain acceptable chemistry lab values during LOS. Goal #3 Adjust the dietary intervention to better serve Pt's needs and clinical conditions during LOS. Follow-Up By: 05/06/22 Additional Comments Continue monitoring food tolerance, %PO intake of meals , dietary supplements, and BM.
--- NOTE | 2022-04-29 14:55 | Consultation ---
History of Present Illness - Reason for Consult Consult date: 04/30/22 end stage renal disease - History of Present Illness This is a 61 year-old woman with ESRD who presents for dyspnea Patient usually dialyzes // at [facility]. Last HD 04/26. Denies any recent issues with HD, including dizziness, lightheadedness, cramping, chest pain on HD. Currently, patient denies any issues including dyspnea, edema, access issues, nausea, vomiting, headaches. Notes having dyspnea on 04/28 which led to hospital visit on 04/29, found to have COVID-19, did get HD last night in hospital with no issues. On HFNC this AM and completing albuterol treatment Past History Past Medical History: ESRD, hypertension, hypothyroidism, renal failure Past Surgical History: No surgical history Social history: no significant social history Family history: hypertension Medications and Allergies Allergies Allergy/AdvReac Type Severity Reaction Status Date / Time NSAIDS (Non-Steroidal Allergy Rash Verified 04/28/22 13:30 Anti-Inflamma Sulfa (Sulfonamide Allergy Rash Verified 04/28/22 13:30 Antibiotics) Home Medications Medication Instructions Recorded Confirmed Last Taken Type Ascorbic Acid [Vitamin C] 500 mg PO DAILY 04/28/22 04/28/22 Unknown History Ferrous Sulfate [Ferrous Sulfate 324 mg PO DAILY 04/28/22 04/28/22 Unknown History 324 MG] Levothyroxine Sodium 200 mcg PO DAILY 04/28/22 04/28/22 Unknown History [Levothyroxine] Venlafaxine [Effexor 37.5mg tab] 37.5 mg PO QDAY 04/28/22 04/28/22 Unknown History carvediloL [Coreg] 12.5 mg PO BID 04/28/22 04/28/22 Unknown History sevelamer HCL [Sevelamer HCl] 800 mg PO TID 04/28/22 04/28/22 Unknown History Active Meds: Active Medications Acetaminophen (Acetaminophen 325 Mg Tab) 650 mg PO Q4H PRN PRN Reason: Pain MILD(1-3)/Fever >100.5/KENDALL Albuterol (Albuterol 2.5 Mg/3 Ml Nebu) 2.5 mg IH Q3HRT PRN PRN Reason: Shortness Of Breath Albuterol/Ipratropium (Ipratropium/Albuterol Sulfate 3 Ml Ampul.Neb) 1 ampul IH Q6HRT [facility] Last Admin: 04/29/22 14:41 Dose: 1 ampul Ascorbic Acid (Ascorbic Acid 500 Mg Tab) 500 mg PO DAILY [facility] Last Admin: 04/29/22 09:34 Dose: 500 mg Azithromycin (Azithromycin 250 Mg Tab) 250 mg PO QDAY [facility]; Protocol Stop: 05/03/22 10:01 Last Admin: 04/29/22 09:34 Dose: 250 mg Carvedilol (Carvedilol 12.5 Mg Tab) 12.5 mg PO BID [facility] Last Admin: 04/29/22 09:34 Dose: 12.5 mg Dexamethasone (Dexamethasone 4 Mg/Ml Vial) 8 mg IV DAILY [facility] Stop: 05/08/22 10:01 Last Admin: 04/29/22 09:33 Dose: 8 mg Famotidine (Famotidine 20 Mg Tab) 20 mg PO DAILY [facility] Last Admin: 04/29/22 09:34 Dose: 20 mg Ferrous Sulfate (Ferrous Sulfate 325 Mg Tab) 325 mg PO DAILY [facility] Last Admin: 04/29/22 09:34 Dose: 325 mg Furosemide (Furosemide 40 Mg/4 Ml Inj) 40 mg IV 0600,1800 [facility] Last Admin: 04/29/22 09:43 Dose: 40 mg Heparin Sodium (Porcine) (Heparin 5,000 Unit/1 Ml Vial) 5,000 unit SUB-Q Q8HR [facility] Last Admin: 04/29/22 05:48 Dose: 5,000 unit Sodium Chloride (Nacl 0.9%) 100 mls @ 999 mls/hr IV HOMER PRN PRN Reason: Hypotension Levothyroxine Sodium (Levothyroxine 100 Mcg Tab) 200 mcg PO QAM@0600 [facility] Last Admin: 04/29/22 05:48 Dose: 200 mcg Morphine Sulfate (Morphine 2 Mg/1 Ml Inj) 2 mg IV Q4H PRN PRN Reason: Pain, Moderate (4-6) Morphine Sulfate (Morphine 4 Mg/1 Ml Inj) 4 mg IV Q4H PRN PRN Reason: Pain , Severe (7-10) Ondansetron HCl (Ondansetron 4 Mg/2 Ml Inj) 4 mg IV Q8H PRN PRN Reason: Nausea And Vomiting Sevelamer Carbonate (Sevelamer Carbonate 800 Mg Tab) 800 mg PO TIDWM [facility] Last Admin: 04/29/22 09:34 Dose: 800 mg Sodium Chloride (Sodium Chloride 0.9% 10 Ml Flush Syringe) 10 ml IV BID [facility] Last Admin: 04/29/22 09:44 Dose: 10 ml Sodium Chloride (Sodium Chloride 0.9% 10 Ml Flush Syringe) 10 ml IV PRN PRN PRN Reason: LINE FLUSH Review of Systems All systems: negative (as per HPI) Exam - Vital Signs Vital signs: Vital Signs Temp Pulse Resp BP Pulse Ox 99 F 92 H 18 130/73 94 04/28/22 13:22 04/28/22 13:22 04/28/22 13:22 04/28/22 13:22 04/28/22 13:22 - Physical Exam Narrative exam: Constitutional: no acute distress Head: NC/AT Neck: supple Lungs: clear to auscultation CV: RRR, no M/R/G Abdomen: soft, non-tender, bowel sounds present Back: nontender Extremities: no edema, pulses WNL Skin: intact Neuro: no focal deficits, alert and oriented x4 Results - Lab Results 04/30/22 07:21 04/30/22 07:21 Most recent lab results Calcium 8.7 mg/dL (8.4-10.2) 04/29/22 08:04 Assessment and Plan This is a 61 year old woman who presents with dyspnea, COVID-19 # ESRD: continue HD // or prn, had HD 04/29 evening with UF ~2L - daily labs - renally dose meds - avoid nephrotoxins - renal diet - verbal consent obtained for HD # Anemia: last hemoglobin 9.6->8.8, ESAs with HD TIW # HTN: UF as tolerated. BP stable # Secondary Hyperparathyroidism: continue home binders as needed, vitamin D analogs prn # COVID-19 Pneumonia, Respiratory Failure: on HFNC 80% Fio2, pulmonary/ID also following # CHF: note BNP 13K on admission, UF as tolerated
--- NOTE | 2022-04-29 17:57 | Vascular Lab Report ---
DUPLEX DOPPLER LOWER EXTREMITY VEINS, BILATERAL INDICATION / CLINICAL INFORMATION: Evaluate for possible DVT. TECHNIQUE: Duplex doppler imaging was performed through the veins of both lower extremities using domenic ous compression and other maneuvers. COMPARISON: None available. FINDINGS: RIGHT COMMON FEMORAL VEIN: Negative. RIGHT FEMORAL VEIN: Negative. RIGHT POPLITEAL VEIN: Negative. RIGHT CALF VEINS: Negative. LEFT COMMON FEMORAL VEIN: Negative. LEFT FEMORAL VEIN: Negative. LEFT POPLITEAL VEIN: Negative. LEFT CALF VEINS: Negative. ADDITIONAL FINDINGS: None. IMPRESSION: 1. No sonographic evidence for DVT in either lower extremity. Signer Name: Koby Darnell MD Signed: 04/29/2022 5:53 PM Workstation Name: [id number]
[2022-04-29] MEDS: ACETAMINOPHEN 325 MG TAB PO PRN (23:29)
[2022-04-29] MEDS: guaiFENesin 100 MG/5 ML ORAL LIQD PO PRN (23:30)
--- NOTE | 2022-04-30 01:30 | Consultation ---
History of Present Illness Consult date: 04/30/22 Requesting physician: JANINE PATEL History of present illness: This is a 61-year-old female with a history of end-stage renal disease (dialysis dependent) who lives in a alf for rehabilitation for the last 2 weeks. Patient presents to the emergency department complaining of shortness of breath which started approximately 2 days ago. Patient reports a "wet" cough, that she still is unable to expectorate. Patient denies chest pain, fever, chills. Patient denies worsening of lower extremity edema or lower extremity pain. Patient reports that exertion and movement makes the shortness of breath worse, and the oxygen that she was put on prior to coming to the emergency department has helped with her shortness of breath. Patient was placed on a nonrebreather at the alf, as she was hypoxic at the alf and remained hypoxic abnormality. Patient is not home O2 dependent. Patient has not missed any dial ysis, and her last one was on Thursday. Patient was tested for and confirmed positive for COVID-19, today. Past History Past Medical History: ESRD, hypertension, hypothyroidism, renal failure Past Surgical History: No surgical history Social history: no significant social history Family history: hypertension Medications and Allergies Allergies Allergy/AdvReac Type Severity Reaction Status Date / Time NSAIDS (Non-Steroidal Allergy Rash Verified 04/28/22 13:30 Anti-Inflamma Sulfa (Sulfonamide Allergy Rash Verified 04/28/22 13:30 Antibiotics) Home Medications Medication Instructions Recorded Confirmed Last Taken Type Ascorbic Acid [Vitamin C] 500 mg PO DAILY 04/28/22 04/28/22 Unknown History Ferrous Sulfate [Ferrous Sulfate 324 mg PO DAILY 04/28/22 04/28/22 Unknown History 324 MG] Levothyroxine Sodium 200 mcg PO DAILY 04/28/22 04/28/22 Unknown History [Levothyroxine] Venlafaxine [Effexor 37.5mg tab] 37.5 mg PO QDAY 04/28/22 04/28/22 Unknown History carvediloL [Coreg] 12.5 mg PO BID 04/28/22 04/28/22 Unknown History sevelamer HCL [Sevelamer HCl] 800 mg PO TID 04/28/22 04/28/22 Unknown History Active Meds: Active Medications Acetaminophen (Acetaminophen 325 Mg Tab) 650 mg PO Q4H PRN PRN Reason: Pain MILD(1-3)/Fever >100.5/K[facility]ALL Last Admin: 04/29/22 23:29 Dose: 650 mg Albuterol (Albuterol 2.5 Mg/3 Ml Nebu) 2.5 mg IH Q3HRT PRN PRN Reason: Shortness Of Breath Albuterol/Ipratropium (Ipratropium/Albuterol Sulfate 3 Ml Ampul.Neb) 1 ampul IH TIDRT [facility] Last Admin: 04/29/22 20:19 Dose: 1 ampul Ascorbic Acid (Ascorbic Acid 500 Mg Tab) 500 mg PO DAILY [facility] Last Admin: 04/29/22 09:34 Dose: 500 mg Azithromycin (Azithromycin 250 Mg Tab) 250 mg PO QDAY [facility]; Protocol Stop: 05/03/22 10:01 Last Admin: 04/29/22 09:34 Dose: 250 mg Carvedilol (Carvedilol 12.5 Mg Tab) 12.5 mg PO BID [facility] Last Admin: 04/29/22 23:27 Dose: 12.5 mg Dexamethasone (Dexamethasone 4 Mg/Ml Vial) 8 mg IV DAILY [facility] Stop: 05/08/22 10:01 Last Admin: 04/29/22 09:33 Dose: 8 mg Famotidine (Famotidine 20 Mg Tab) 20 mg PO DAILY [facility] Last Admin: 04/29/22 09:34 Dose: 20 mg Ferrous Sulfate (Ferrous Sulfate 325 Mg Tab) 325 mg PO DAILY [facility] Last Admin: 04/29/22 09:34 Dose: 325 mg Furosemide (Furosemide 40 Mg/4 Ml Inj) 40 mg IV 0600,1800 [facility] Last Admin: 04/29/22 18:16 Dose: 40 mg Guaifenesin (Guaifenesin 100 Mg/5 Ml Oral Liqd) 200 mg PO Q4H PRN PRN Reason: Cough Last Admin: 04/29/22 23:30 Dose: 200 mg Heparin Sodium (Porcine) (Heparin 5,000 Unit/1 Ml Vial) 5,000 unit SUB-Q Q8HR [facility] Last Admin: 04/29/22 23:28 Dose: 5,000 unit Sodium Chloride (Nacl 0.9%) 100 mls @ 999 mls/hr IV HOMER PRN PRN Reason: Hypotension Levothyroxine Sodium (Levothyroxine 100 Mcg Tab) 200 mcg PO QAM@0600 [facility] Last Admin: 04/29/22 05:48 Dose: 200 mcg Morphine Sulfate (Morphine 2 Mg/1 Ml Inj) 2 mg IV Q4H PRN PRN Reason: Pain, Moderate (4-6) Morphine Sulfate (Morphine 4 Mg/1 Ml Inj) 4 mg IV Q4H PRN PRN Reason: Pain , Severe (7-10) Ondansetron HCl (Ondansetron 4 Mg/2 Ml Inj) 4 mg IV Q8H PRN PRN Reason: Nausea And Vomiting Sevelamer Carbonate (Sevelamer Carbonate 800 Mg Tab) 800 mg PO TIDWM [facility] Last Admin: 04/29/22 18:17 Dose: 800 mg Sodium Chloride (Sodium Chloride 0.9% 10 Ml Flush Syringe) 10 ml IV BID [facility] Last Admin: 04/29/22 23:28 Dose: 10 ml Sodium Chloride (Sodium Chloride 0.9% 10 Ml Flush Syringe) 10 ml IV PRN PRN PRN Reason: LINE FLUSH Physical Examination Vital signs: Vital Signs Temp Pulse Resp BP Pulse Ox 99 F 92 H 18 130/73 94 04/28/22 13:22 04/28/22 13:22 04/28/22 13:22 04/28/22 13:22 04/28/22 13:22 Results - Laboratory Findings CBC and BMP: 04/30/22 07:21 04/30/22 07:21 PT/INR, D-dimer PT 13.5 Sec. (12.2-14.9) 04/28/22 14:49 INR 0.91 (0.87-1.13) 04/28/22 14:49 D-Dimer 1044.30 ng/mlDDU (0-234) H 04/29/22 08:04 Abnormal lab findings: Abnormal Labs 04/28/22 04/28/22 04/28/22 14:49 14:49 14:49 RBC 3.08 L Hgb 9.6 L MCV 99 H RDW 17.7 H Seg Neuts % (Manual) 78.0 H Lymphocytes % (Manual) 3.0 L Lymphocytes # (Manual) 0.3 L D-Dimer Sodium 133 L Carbon Dioxide 21 L BUN 39 H Creatinine 3.7 H Glucose Calcium 8.2 L Ferritin Troponin T 0.075 H C-Reactive Protein NT-Pro-B Natriuret Pep 61924 H Total Protein 5.6 L Albumin 2.8 L HDL Cholesterol 64 H 04/29/22 04/29/22 04/29/22 08:04 08:04 08:04 RBC Hgb MCV RDW Seg Neuts % (Manual) Lymphocytes % (Manual) Lymphocytes # (Manual) D-Dimer 1044.30 H Sodium Carbon Dioxide BUN 48 H Creatinine 4.0 H Glucose 147 H Calcium Ferritin 458.0 H Troponin T C-Reactive Protein 10.50 H NT-Pro-B Natriuret Pep Total Protein Albumin HDL Cholesterol - Diagnostic Findings Chest x-ray: image reviewed Assessment and Plan 61 y/o with acute respiratory failure secondary to COVID 19 1. Dexamethasone as ordered 2. Agree with ID and use of actemra 3. If able to prone, suggest prone as tolerated during the day and sleep prone at night 4. Wean FiO2 and flow for sats >88% 5. HD per renal, need to keep daily net negative state if possible 6. Guarded prognosis.
[2022-04-30] MEDS: LEVOTHYROXINE 100 MCG TAB PO SCH (06:28)
[2022-04-30] MEDS: guaiFENesin 100 MG/5 ML ORAL LIQD PO PRN ×2 (06:28→18:33)
[2022-04-30] MEDS: FUROSEMIDE 40 MG/4 ML INJ IV SCH ×2 (06:30→18:25)
[2022-04-30] MEDS: HEPARIN 5,000 UNIT/1 ML VIAL SUB-Q SCH ×3 (06:31→23:07)
[2022-04-30 07:39] LABS: Hematocrit 27.9 % (30.3-42.9); Hemoglobin 8.8 gm/dl (10.1-14.3); Mean Corpuscular HGB Conc 32 % (30-34); Mean Corpuscular Volume 98 fl (79-97); Platelet Count 182 K/mm3 (140-440); Red Blood Count 2.83 M/mm3 (3.65-5.03); Red Cell Distribution Width 17.2 % (13.2-15.2)
[2022-04-30 07:59] LABS: Calcium 8.2 mg/dL (8.4-10.2)
[2022-04-30] MEDS: IPRATROPIUM/ALBUTEROL SULFATE 3 ML AMPUL.NEB IH SCH ×3 (08:51→20:30)
[2022-04-30] MEDS: SEVELAMER CARBONATE 800 MG TAB PO SCH ×3 (10:04→18:25)
[2022-04-30] MEDS: FAMOTIDINE 20 MG TAB PO SCH (10:04)
[2022-04-30] MEDS: FERROUS SULFATE 325 MG TAB PO SCH (10:04)
[2022-04-30] MEDS: carvediloL 12.5 MG TAB PO SCH ×2 (10:04→21:43)
[2022-04-30] MEDS: AZITHROMYCIN 250 MG TAB PO SCH (10:04)
[2022-04-30] MEDS: ASCORBIC ACID 500 MG TAB PO SCH (10:04)
[2022-04-30] MEDS: dexAMETHasone 4 MG/ML VIAL IV SCH (10:04)
--- NOTE | 2022-04-30 10:16 | Progress Note ---
Assessment and Plan Cultures: SARS CoV2 PCR: Pending here. Positive at detention. 04/28/2022 blood culture: no growth A/P: 61-year-old female with ESRD on HD, hypertension, hypothyroidism, detention resident was brought into the emergency room due to shortness of breath: #Bilateral pneumonia: Secondary to COVID-19 #Acute hypoxic respiratory failure: Requiring HFNC. #ESRD on HD: Renally adjust antibiotics #CHF Recs: -continue IV/PO Dexamethasone x 10 days -Continue empiric azithromycin for 5 days -Not a candidate for remdesivir due to renal failure -since she is requiring HFNC >30 L/min, and CRP >7.5, would be a candidate for Actemra 8 mg/kg x 1, d/w patient and with pharmacy. Order placed -prophylactic anticoagulation based on d-dimer per hospital protocol -trend ferritin, d-dimer, CRP every 2-3 days Pauline Costello MD, FACP, [facility] O: [phone] F: [phone] C: [phone] Subjective Date of service: 04/30/22 Interval history: No fever. Breathing slightly better but remains on HFNC. Objective - Exam Narrative Exam: Physical Exam: Constitutional: Alert, cooperative. Mild distress, on HFNC. Head, Ears, Nose: Normocephalic, atraumatic. External ears, nose normal Eyes: Conjunctivae/corneas clear. No icterus. No ptosis. Neck: Supple, no meningeal signs Cardiovascular: S1, S2 + Respiratory: AE fair bilaterally GI: Soft, non-tender; bowel sounds normal. No peritoneal signs Musculoskeletal: No pedal edema, no cyanosis. PermCath + Skin: No rash or abscess Hem/Lymphatic: No palpable cervical or supraclavicular nodes. No lymphangitis Psych: Mood ok. Affect normal Neurological: Awake, alert, oriented. - Constitutional Vitals: Vital Signs Temp Pulse Resp BP Pulse Ox 99.0 F 89 20 131/66 99 04/29/22 23:18 04/30/22 08:00 04/30/22 08:00 04/29/22 23:27 04/30/22 08:00 Temperature -Last 24 Hours Temperature 99.0 F Temperature 98.6 F Temperature 98.9 F Temperature 97.9 F Temperature 98.9 F - Labs CBC & Chem 7: 04/30/22 07:21 04/30/22 07:21 Labs: Abnormal lab results 04/30/22 04/30/22 Range/Units 07:21 07:21 RBC 2.83 L (3.65-5.03) M/mm3 Hgb 8.8 L (10.1-14.3) gm/dl Hct 27.9 L (30.3-42.9) % MCV 98 H (79-97) fl RDW 17.2 H (13.2-15.2) % Carbon Dioxide 31 H (22-30) mmol/L BUN 29 H (7-17) mg/dL Creatinine 2.6 H (0.6-1.2) mg/dL Calcium 8.2 L (8.4-10.2) mg/dL
--- NOTE | 2022-04-30 10:51 | Electrocardiograph Report ---
[facility] Test Date: 2022-04-28 Test Time: 13:40:47 Pat Name: BLAYNE ALEXANDRA Department: Room: A351 Gender: F Sas Sql Developer: YOSEF : 1960 Requested By: RANJAN HERNÁNDEZ Order Number: [id number] Reading MD: Suman Sparrow Measurements Intervals [place] Rate: 98 P: 43 DC: 163 QRS: -26 QRSD: 87 T: 22 QT: 347 QTc: 435 Interpretive Statements Sinus rhythm Atrial premature complexes Inferior infarct, old Consider anterior infarct No previous ECG available for comparison Electronically Signed On 04-30-2022 10:51:09 EDT by Suman Sparrow
--- NOTE | 2022-04-30 11:19 | Progress Note ---
Assessment and Plan Assessment and plan: #COVID-19 pneumonia #Acute hypoxic respiratory failure-improving - etiology: Secondary to COVID-19 pneumonia + possible acute heart failure - baseline oxygen requirements: Room air - supplemental oxygen: High flow nasal cannula 30 L / 80% FiO2 - Continue protocol: continue pulse oximetry, wean oxygen as tolerated, dexamethasone 8 mg daily x10 days, azithromycin 250 mg daily x5 days (completes on 05/02/2022), airborne and droplet precautions -Infectious disease consulted; appreciate recs. Patient not currently candidate for remdesivir given renal function. Pulmonology consulted; pending recs - continue to monitor #Possible acute heart failure - Continue CHF exacerbation protocol: Telemetry, Strict I/O, monitor urine output every shift, daily weights, afterload reduction, low-sodium diet, and fluid restriction of approximately 1.5 mL/day, IV Lasix 40 mg twice daily - Supplemental oxygen: High flow nasal cannula 30 L / 90% FiO2 - ProBNP on admission: 13,672 - Pending TTE to evaluate cardiac function - Continue to monitor #Elevated D-dimer D-dimer 1044 Unremarkable bilateral venous Dopplers to evaluate for possible DVT. Continue to monitor. #ESRD on hemodialysis -Access: Permacath in right upper chest -Outpatient schedule: Unknown -HD center: N/A -Nephrology consulted; appreciate recs. -Renally dose medications and avoid nephrotoxic drugs. Renal diet. #Macrocytic anemia Hemoglobin 8.8 Transfuse if hemoglobin <7 or patient becomes symptomatic. Continue to monitor. #Hypothyroidism Continue home levothyroxine 200 mcg daily #Mild protein caloric malnutrition Albumin 2.5 Continue dietary supplementation Critical Care Billing: The high probability of a clinically significant, sudden or life threatening deterioration of the [respiratory] system(s) required my full and direct attention, intervention and personal management. The aggregate critical care time was [60] minutes. This time is in addition to time spent performing reported procedures but includes the following: [x] Data Review and interpretation [x] Patient assessment and monitoring of vital signs [x] Documentation [x] Medication orders and management Disposition Plan: Continue medical management Total Time Spent with Patient (Minutes): 45 minutes History Interval history: No acute events overnight. Hospitalist Physical - Constitutional Vitals: Temp Pulse Resp BP Pulse Ox 99.0 F 89 20 131/66 99 04/29/22 23:18 04/30/22 08:00 04/30/22 08:00 04/29/22 23:27 04/30/22 08:00 General appearance: Present: no acute distress, well-nourished - EENT Eyes: Present: PERRL, EOM intact ENT: hearing intact, clear oral mucosa - Neck Neck: Present: supple, normal ROM - Respiratory Respiratory effort: labored Respiratory: bilateral: diminished (High flow nasal cannula 30 L / 80% FiO2) - Cardiovascular Rhythm: regular Heart Sounds: Present: S1 & S2 - Extremities Extremities: no ischemia, pulses intact, pulses symmetrical, No edema, normal temperature, normal color Peripheral Pulses: within normal limits - Abdominal General gastrointestinal: soft, non-tender, non-distended, normal bowel sounds - Integumentary Integumentary: Present: clear, warm, dry - Psychiatric Psychiatric: appropriate mood/affect, cooperative - Neurologic Neurologic: CNII-XII intact - Allied Health Allied health notes reviewed: nursing HEART Score - HEART Score Troponin: Troponin T 0.075 ng/mL (0.00-0.029) H 04/28/22 14:49 Results - Labs CBC & Chem 7: 04/30/22 07:21 04/30/22 07:21 Labs: Laboratory Last Values WBC 8.0 K/mm3 (4.5-11.0) 04/30/22 07:21 RBC 2.83 M/mm3 (3.65-5.03) L 04/30/22 07:21 Hgb 8.8 gm/dl (10.1-14.3) L 04/30/22 07:21 Hct 27.9 % (30.3-42.9) L 04/30/22 07:21 MCV 98 fl (79-97) H 04/30/22 07:21 MCH 31 pg (28-32) 04/30/22 07:21 MCHC 32 % (30-34) 04/30/22 07:21 RDW 17.2 % (13.2-15.2) H 04/30/22 07:21 Plt Count 182 K/mm3 (140-440) 04/30/22 07:21 Baso % (Auto) Management Information Systems Director 04/28/22 14:49 Add Manual Diff Complete 04/28/22 14:49 Total Counted 100 04/28/22 14:49 Seg Neutrophils % Management Information Systems Director 04/30/22 07:21 Seg Neuts % (Manual) 78.0 % (40.0-70.0) H 04/28/22 14:49 Band Neutrophils % 14.0 % 04/28/22 14:49 Lymphocytes % (Manual) 3.0 % (13.4-35.0) L 04/28/22 14:49 Reactive Lymphs % (Man) 0 % 04/28/22 14:49 Monocytes % (Manual) 5.0 % (0.0-7.3) 04/28/22 14:49 Eosinophils % (Manual) 0 % (0.0-4.3) 04/28/22 14:49 Basophils % (Manual) 0 % (0.0-1.8) 04/28/22 14:49 Metamyelocytes % 0 % 04/28/22 14:49 Myelocytes % 0 % 04/28/22 14:49 Promyelocytes % 0 % 04/28/22 14:49 Blast Cells % 0 % 04/28/22 14:49 Nucleated RBC % Not Reportable 04/28/22 14:49 Seg Neutrophils # Man 6.6 K/mm3 (1.8-7.7) 04/28/22 14:49 Band Neutrophils # 1.2 K/mm3 04/28/22 14:49 Lymphocytes # (Manual) 0.3 K/mm3 (1.2-5.4) L 04/28/22 14:49 Abs React Lymphs (Man) 0.0 K/mm3 04/28/22 14:49 Monocytes # (Manual) 0.4 K/mm3 (0.0-0.8) 04/28/22 14:49 Eosinophils # (Manual) 0.0 K/mm3 (0.0-0.4) 04/28/22 14:49 Basophils # (Manual) 0.0 K/mm3 (0.0-0.1) 04/28/22 14:49 Metamyelocytes # 0.0 K/mm3 04/28/22 14:49 Myelocytes # 0.0 K/mm3 04/28/22 14:49 Promyelocytes # 0.0 K/mm3 04/28/22 14:49 Blast Cells # 0.0 K/mm3 04/28/22 14:49 WBC Morphology Not Reportable 04/28/22 14:49 Hypersegmented Neuts Not Reportable 04/28/22 14:49 Hyposegmented Neuts Not Reportable 04/28/22 14:49 Hypogranular Neuts Not Reportable 04/28/22 14:49 Smudge Cells Not Reportable 04/28/22 14:49 Toxic Granulation Not Reportable 04/28/22 14:49 Toxic Vacuolation Not Reportable 04/28/22 14:49 Dohle Bodies Not Reportable 04/28/22 14:49 Pelger-Huet Anomaly Not Reportable 04/28/22 14:49 Kristi Rods Not Reportable 04/28/22 14:49 Platelet Estimate Consistent w auto 04/28/22 14:49 Clumped Platelets Not Reportable 04/28/22 14:49 Plt Clumps, EDTA Not Reportable 04/28/22 14:49 Large Platelets Not Reportable 04/28/22 14:49 Giant Platelets Not Reportable 04/28/22 14:49 Platelet Satelliting Not Reportable 04/28/22 14:49 Plt Morphology Comment Not Reportable 04/28/22 14:49 RBC Morphology Not Reportable 04/28/22 14:49 Dimorphic RBCs Not Reportable 04/28/22 14:49 Polychromasia Not Reportable 04/28/22 14:49 Hypochromasia Not Reportable 04/28/22 14:49 Poikilocytosis Not Reportable 04/28/22 14:49 Anisocytosis 1+ 04/28/22 14:49 Microcytosis Not Reportable 04/28/22 14:49 Macrocytosis Not Reportable 04/28/22 14:49 Spherocytes Not Reportable 04/28/22 14:49 Pappenheimer Bodies Not Reportable 04/28/22 14:49 Sickle Cells Not Reportable 04/28/22 14:49 Target Cells Not Reportable 04/28/22 14:49 Tear Drop Cells Not Reportable 04/28/22 14:49 Ovalocytes Not Reportable 04/28/22 14:49 Helmet Cells Not Reportable 04/28/22 14:49 Jett-Encantado Bodies Not Reportable 04/28/22 14:49 [place] Rings Not Reportable 04/28/22 14:49 [place] Cells Not Reportable 04/28/22 14:49 Bite Cells Not Reportable 04/28/22 14:49 Crenated Cell Not Reportable 04/28/22 14:49 Elliptocytes Not Reportable 04/28/22 14:49 Acanthocytes (Spur) Not Reportable 04/28/22 14:49 Rouleaux Not Reportable 04/28/22 14:49 Hemoglobin C Crystals Not Reportable 04/28/22 14:49 Schistocytes Not Reportable 04/28/22 14:49 Malaria parasites Not Reportable 04/28/22 14:49 Mayank Bodies Not Reportable 04/28/22 14:49 Hem Pathologist Commnt No 04/28/22 14:49 PT 13.5 Sec. (12.2-14.9) 04/28/22 14:49 INR 0.91 (0.87-1.13) 04/28/22 14:49 APTT 33.8 Sec. (24.2-36.6) 04/28/22 14:49 D-Dimer 1044.30 ng/mlDDU (0-234) H 04/29/22 08:04 Sodium 141 mmol/L (137-145) 04/30/22 07:21 Potassium 3.8 mmol/L (3.6-5.0) 04/30/22 07:21 Chloride 100.5 mmol/L (98-107) 04/30/22 07:21 Carbon Dioxide 31 mmol/L (22-30) H 04/30/22 07:21 Anion Gap 13 mmol/L 04/30/22 07:21 BUN 29 mg/dL (7-17) H 04/30/22 07:21 Creatinine 2.6 mg/dL (0.6-1.2) H 04/30/22 07:21 Estimated GFR 19 ml/min 04/30/22 07:21 BUN/Creatinine Ratio 11 % 04/30/22 07:21 Glucose 100 mg/dL (65-100) 04/30/22 07:21 Calcium 8.2 mg/dL (8.4-10.2) L 04/30/22 07:21 Ferritin 458.0 ng/mL (10.0-200.0) H 04/29/22 08:04 Total Bilirubin 0.20 mg/dL (0.1-1.2) 04/28/22 14:49 AST 26 units/L (5-40) 04/28/22 14:49 ALT 14 units/L (7-56) 04/28/22 14:49 Alkaline Phosphatase 70 units/L (35-129) 04/28/22 14:49 Troponin T 0.075 ng/mL (0.00-0.029) H 04/28/22 14:49 C-Reactive Protein 10.50 mg/dL (0.00-1.30) H 04/29/22 08:04 NT-Pro-B Natriuret Pep 82829 pg/mL (0-900) H 04/28/22 14:49 Total Protein 5.6 g/dL (6.3-8.2) L 04/28/22 14:49 Albumin 2.8 g/dL (3.9-5) L 04/28/22 14:49 Albumin/Globulin Ratio 1.0 % 04/28/22 14:49 Triglycerides 128 mg/dL (2-149) 04/28/22 14:49 Cholesterol 154 mg/dL (50-199) 04/28/22 14:49 LDL Cholesterol Direct 63 mg/dL (50-130) 04/28/22 14:49 HDL Cholesterol 64 mg/dL (40-59) H 04/28/22 14:49 Cholesterol/HDL Ratio 2.40 % 04/28/22 14:49 Hepatitis A IgM Ab Non-reactive (NonReactive) 04/29/22 10:27 Hep Bs Antigen Non-reactive (Negative) 04/29/22 10:27 Hep B Core IgM Ab Non-reactive (NonReactive) 04/29/22 10:27 Hepatitis C Antibody Non-reactive (NonReactive) 04/29/22 10:27 Microbiology: Microbiology 04/28/22 16:49 Peripheral/Venous Blood Culture - Preliminary NO GROWTH AFTER 24 HOURS 04/28/22 16:49 Peripheral/Venous Blood Culture - Preliminary NO GROWTH AFTER 24 HOURS Pichardo/IV: Voiding Method External Female Catheter Active Medications - Current Medications Current Medications: Generic Name Dose Route Start Last Admin Trade Name Freq PRN Reason Stop Dose Admin Acetaminophen 650 mg 04/28/22 23:21 04/29/22 23:29 Acetaminophen 325 Mg Tab PO 650 mg Q4H PRN Administration Pain MILD(1-3)/Fever >100.5/KENDALL Albuterol 2.5 mg 04/28/22 23:21 Albuterol 2.5 Mg/3 Ml Nebu IH Q3HRT PRN Shortness Of Breath Albuterol/Ipratropium 1 ampul 04/29/22 20:00 04/30/22 08:51 Ipratropium/Albuterol Sulfate 3 Ml Ampul.Neb IH 1 ampul TIDRT TOSHIA Administration Ascorbic Acid 500 mg 04/29/22 10:00 04/30/22 10:04 Ascorbic Acid 500 Mg Tab PO 500 mg DAILY TOSHIA Administration Azithromycin 500 mg 05/01/22 10:00 Azithromycin 250 Mg Tab PO 05/03/22 10:01 QDAY [facility] Protocol Carvedilol 12.5 mg 04/29/22 10:00 04/30/22 10:04 Carvedilol 12.5 Mg Tab PO 12.5 mg BID TOSHIA Administration Dexamethasone 8 mg 04/29/22 10:00 04/30/22 10:04 Dexamethasone 4 Mg/Ml Vial IV 05/08/22 10:01 8 mg DAILY TOSHIA Administration Famotidine 20 mg 04/29/22 10:00 04/30/22 10:04 Famotidine 20 Mg Tab PO 20 mg DAILY TOSHIA Administration Ferrous Sulfate 325 mg 04/29/22 10:00 04/30/22 10:04 Ferrous Sulfate 325 Mg Tab PO 325 mg DAILY TOSHIA Administration Furosemide 40 mg 04/29/22 07:15 04/30/22 06:30 Furosemide 40 Mg/4 Ml Inj IV 40 mg 0600,1800 TOSHIA Administration Guaifenesin 200 mg 04/29/22 18:23 04/30/22 06:28 Guaifenesin 100 Mg/5 Ml Oral Liqd PO 200 mg Q4H PRN Administration Cough Heparin Sodium (Porcine) 5,000 unit 04/29/22 06:00 04/30/22 06:31 Heparin 5,000 Unit/1 Ml Vial SUB-Q 5,000 unit Q8HR TOSHIA Administration Sodium Chloride 100 mls @ 999 mls/hr 04/29/22 10:30 Nacl 0.9% IV HOMER PRN Hypotension TOCILIZUMAB 600 mg/ Sodium 130 mls @ 120 mls/hr 04/30/22 12:00 Chloride IV 04/30/22 13:04 ONCE ONE Levothyroxine Sodium 200 mcg 04/29/22 06:00 04/30/22 06:28 Levothyroxine 100 Mcg Tab PO 200 mcg QAM@0600 TOSHIA Administration Morphine Sulfate 2 mg 04/28/22 23:21 Morphine 2 Mg/1 Ml Inj IV Q4H PRN Pain, Moderate (4-6) Morphine Sulfate 4 mg 04/28/22 23:21 Morphine 4 Mg/1 Ml Inj IV Q4H PRN Pain , Severe (7-10) Ondansetron HCl 4 mg 04/28/22 23:21 Ondansetron 4 Mg/2 Ml Inj IV Q8H PRN Nausea And Vomiting Sevelamer Carbonate 800 mg 04/29/22 08:00 04/30/22 10:04 Sevelamer Carbonate 800 Mg Tab PO 800 mg TIDWM TOSHIA Administration Sodium Chloride 10 ml 04/29/22 10:00 04/30/22 10:04 Sodium Chloride 0.9% 10 Ml Flush Syringe IV 10 ml BID TOSHIA Administration Sodium Chloride 10 ml 04/28/22 23:21 Sodium Chloride 0.9% 10 Ml Flush Syringe IV PRN PRN LINE FLUSH Nutrition/Malnutrition Assess - Dietary Evaluation Nutrition/Malnutrition Findings: Nutrition Notes Start: 04/29/22 12:04 Freq: Status: Active Protocol: Document 04/29/22 12:04 ASHISH (Rec: 04/29/22 12:32 ASHISH [id number]) Nutrition Notes Need for Assessment generated from: MD Order Initial or Follow up Assessment Current Diagnosis CKD (stage V CKD),Hypertension ,Respiratory Failure Other Pertinent Diagnosis ESRD+HD, COVID-19/Pneumonia, CHF, Hypothyroidism. Current Diet Cardiac Diet (since B 04/28), Cardiac -Renal- Diet+D Suppl ( from D 04/29). Labs/Tests 04/29: BUN 48, Crea 4.0, Glu 147. Pertinent Medications 04/29: Vit C, FeSO4, Levothyroxine, Renvela, others nutritionally unremarkable. Height 5 ft 3 in Weight 72.575 kg [place] Body Weight (kg) 52.27 BMI 28.3 Intake Prior to Admission Good Weight change and time frame Pt denies having loss body weight MID WIFE. Weight Status Overweight Subjective/Other Information RD consult for dietary supplementation assessment. No reports available on Pt's PO intake of meals at the time , will assess at F/U. I will prescribe dietary supplements to compensate for possible poor or insufficient PO intake of meals during LOS. I will recommend renal restriction to current diet, to support Pt's ESRD condition during LOS. Pt is on High Flow Nasal Cannula, O2 saturation @ 91%, according to Physical Assessment History notes. Pt has missing teeth, according to Physical Assessment History notes. Pt is a SNF resident, according to Progress notes. Percent of energy/protein needs met: Prescribed Cardiac -Renal- Diet provides for energy/ protein needs (2,230 Kcal/85 g ) during LOS; additionally, Dietary Supplements will compensate for possible poor or insufficient PO intake of meals with 850 Kcal and 38 g of protein. Burn Absent Trauma Absent GI Symptoms None Food Allergy No Skin Integrity/Comment Assessment WNL. Minimum of two criteria No Fluid Accumulation N/A Reduced Bead Picker Strength N/A (non-severe) Protein-Calorie Malnutrition N\A #2 Nutrition Diagnosis Altered nutrition-related laboratory values Etiology CKD V, ESRD. As Evidenced by Signs and Symptoms 04/29: BUN 48, Crea 4.0, Glu 147. #1 Nutrition Diagnosis Predicted suboptimal energy intake Etiology Ongoing and concomitant chronic metabolic conditions. As Evidenced by Signs and Symptoms No reports available on Pt's PO intake of meals at the time , MD request for dietary supplements. Is patient on ventilator? No Is Patient Ambulatory and/or Out of Bed No REE-([place]-confined to bed) 1528.644 Kcal/Kg value to use for calculation 19 Approximate Energy Requirements Using 1379 kcal/Kg Calculation Used for Recommendations Kcal/kg Additional Notes Protein: >1.2 g/Kg ABW; >88 g/ day. Fluids: 1 ml/Kcal, or as per MD. Nutrition Intervention Change Diet Order: Add Renal restriction to Cardiac Diet, and continue as tolerated. Add Supplement/Snack (indicate name/kcal Start 8 fl oz Nepro w/ /protein ) CARBSTEADY; BID Provides kCal: 850 Provides Protein (gm) 38 Goal #1 Compensate, through dietary supplementation, for possible poor or insufficient PO intake of meals during LOS. Goal #2 Help reach and maintain acceptable chemistry lab values during LOS. Goal #3 Adjust the dietary intervention to better serve Pt's needs and clinical conditions during LOS. Follow-Up By: 05/06/22 Additional Comments Continue monitoring food tolerance, %PO intake of meals , dietary supplements, and BM.
[2022-04-30] MEDS ORDERED: TOCILIZUMAB 600 MG in SODIUM CHLORIDE 0.9% 100 ML IV ONE (12:00)
[2022-04-30 12:47] LABS: Basophils % (Manual) 0 % (0.0-1.8); Eosinophils % (Manual) 0 % (0.0-4.3); Monocytes % (Manual) 0 % (0.0-7.3); Myelocytes # (Manual) 0.1 K/mm3; Total Cells Counted 100
[2022-04-30 12:48] LABS: Anisocytosis 1+; Platelet Estimate Consistent w Auto
[2022-05-01] MEDS: FUROSEMIDE 40 MG/4 ML INJ IV SCH ×2 (05:07→17:33)
[2022-05-01] MEDS: HEPARIN 5,000 UNIT/1 ML VIAL SUB-Q SCH ×3 (05:07→22:26)
[2022-05-01] MEDS: LEVOTHYROXINE 100 MCG TAB PO SCH (05:07)
[2022-05-01 06:41] LABS: Basophils % (Auto) 0.1 % (0.0-1.8); Hematocrit 25.9 % (30.3-42.9); Hemoglobin 8.2 gm/dl (10.1-14.3); Lymphocytes # (Auto) 0.3 K/mm3 (1.2-5.4); Lymphocytes % (Auto) 5.9 % (13.4-35.0); Mean Corpuscular HGB Conc 32 % (30-34); Mean Corpuscular Volume 98 fl (79-97); Monocytes # (Auto) 0.2 K/mm3 (0.0-0.8); Monocytes % (Auto) 4.1 % (0.0-7.3); Platelet Count 172 K/mm3 (140-440); Red Blood Count 2.65 M/mm3 (3.65-5.03); Red Cell Distribution Width 16.7 % (13.2-15.2)
[2022-05-01 07:13] LABS: Calcium 8.2 mg/dL (8.4-10.2)
[2022-05-01 07:32] LABS: C-Reactive Protein 2.1 mg/dL (0.00-1.30)
--- NOTE | 2022-05-01 09:35 | Progress Note ---
Assessment and Plan 61 y/o with acute respiratory failure secondary to COVID 19 05/01/22: Continue steroids. Actemra ordered by ID. PRone if possible during the day and sleep prone at night. Needs volume removal with HD, based on vitals, BP should tolerate it. Guarded prognosis. 1. Dexamethasone as ordered 2. Agree with ID and use of actemra 3. If able to prone, suggest prone as tolerated during the day and sleep prone at night 4. Wean FiO2 and flow for sats >88% 5. HD per renal, need to keep daily net negative state if possible 6. Guarded prognosis. Subjective Date of service: 05/01/22 Interval history: No acute events. Significant drop in HFNC requirement in the last 24 hours. Should have HD today Objective Vital Signs - 12hr 04/30/22 05/01/22 23:34 00:24 Temperature 98.8 F Pulse Rate 84 Respiratory 18 21 Rate Blood Pressure 150/55 [Left] O2 Sat by Pulse 95 100 Oximetry CBC and BMP: 05/01/22 06:22 05/01/22 06:22 ABG, PT/INR, D-dimer: PT/INR, D-dimer PT 13.5 Sec. (12.2-14.9) 04/28/22 14:49 INR 0.91 (0.87-1.13) 04/28/22 14:49 D-Dimer 1200.26 ng/mlDDU (0-234) H 05/01/22 06:22 Abnormal lab findings: Abnormal Labs 04/28/22 04/28/22 04/28/22 14:49 14:49 14:49 RBC 3.08 L Hgb 9.6 L Hct MCV 99 H RDW 17.7 H Lymph % (Auto) Lymph # (Auto) Seg Neutrophils % Seg Neuts % (Manual) 78.0 H Lymphocytes % (Manual) 3.0 L Lymphocytes # (Manual) 0.3 L D-Dimer Sodium 133 L Carbon Dioxide 21 L BUN 39 H Creatinine 3.7 H Glucose Calcium 8.2 L Ferritin Lactate Dehydrogenase Troponin T 0.075 H C-Reactive Protein NT-Pro-B Natriuret Pep 03360 H Total Protein 5.6 L Albumin 2.8 L HDL Cholesterol 64 H Coronavirus (PCR) 04/29/22 04/29/22 04/29/22 08:04 08:04 08:04 RBC Hgb Hct MCV RDW Lymph % (Auto) Lymph # (Auto) Seg Neutrophils % Seg Neuts % (Manual) Lymphocytes % (Manual) Lymphocytes # (Manual) D-Dimer 1044.30 H Sodium Carbon Dioxide BUN 48 H Creatinine 4.0 H Glucose 147 H Calcium Ferritin 458.0 H Lactate Dehydrogenase Troponin T C-Reactive Protein 10.50 H NT-Pro-B Natriuret Pep Total Protein Albumin HDL Cholesterol Coronavirus (PCR) 04/30/22 04/30/22 04/30/22 07:21 07:21 10:00 RBC 2.83 L Hgb 8.8 L Hct 27.9 L MCV 98 H RDW 17.2 H Lymph % (Auto) Lymph # (Auto) Seg Neutrophils % Seg Neuts % (Manual) 93.0 H Lymphocytes % (Manual) 6.0 L Lymphocytes # (Manual) 0.5 L D-Dimer Sodium Carbon Dioxide 31 H BUN 29 H Creatinine 2.6 H Glucose Calcium 8.2 L Ferritin Lactate Dehydrogenase Troponin T C-Reactive Protein NT-Pro-B Natriuret Pep Total Protein Albumin HDL Cholesterol Coronavirus (PCR) Positive A 05/01/22 05/01/22 05/01/22 06:22 06:22 06:22 RBC 2.65 L Hgb 8.2 L Hct 25.9 L MCV 98 H RDW 16.7 H Lymph % (Auto) 5.9 L Lymph # (Auto) 0.3 L Seg Neutrophils % 89.9 H Seg Neuts % (Manual) Lymphocytes % (Manual) Lymphocytes # (Manual) D-Dimer 1200.26 H Sodium Carbon Dioxide BUN 50 H Creatinine 3.4 H Glucose Calcium 8.2 L Ferritin Lactate Dehydrogenase 211 H Troponin T C-Reactive Protein 2.10 H NT-Pro-B Natriuret Pep Total Protein Albumin HDL Cholesterol Coronavirus (PCR) 05/01/22 06:22 RBC Hgb Hct MCV RDW Lymph % (Auto) Lymph # (Auto) Seg Neutrophils % Seg Neuts % (Manual) Lymphocytes % (Manual) Lymphocytes # (Manual) D-Dimer Sodium Carbon Dioxide BUN Creatinine Glucose Calcium Ferritin 354.3 H Lactate Dehydrogenase Troponin T C-Reactive Protein NT-Pro-B Natriuret Pep Total Protein Albumin HDL Cholesterol Coronavirus (PCR)
[2022-05-01] MEDS: IPRATROPIUM/ALBUTEROL SULFATE 3 ML AMPUL.NEB IH SCH (10:00)
[2022-05-01] MEDS ORDERED: AZITHROMYCIN 250 MG TAB PO SCH (10:00)
[2022-05-01] MEDS: SEVELAMER CARBONATE 800 MG TAB PO SCH ×3 (10:12→17:32)
[2022-05-01] MEDS: FAMOTIDINE 20 MG TAB PO SCH (10:13)
[2022-05-01] MEDS: carvediloL 12.5 MG TAB PO SCH ×2 (10:13→22:26)
[2022-05-01] MEDS: dexAMETHasone 4 MG/ML VIAL IV SCH (10:13)
[2022-05-01] MEDS: FERROUS SULFATE 325 MG TAB PO SCH (10:13)
[2022-05-01] MEDS: ASCORBIC ACID 500 MG TAB PO SCH (10:20)
[2022-05-01] MEDS: guaiFENesin 100 MG/5 ML ORAL LIQD PO PRN (10:20)
--- NOTE | 2022-05-01 11:08 | Progress Note ---
Assessment and Plan Cultures: SARS CoV2 PCR: Positive 04/28/2022 blood culture: no growth A/P: 61-year-old female with ESRD on HD, hypertension, hypothyroidism, intermediate resident was brought into the emergency room due to shortness of breath: #Bilateral pneumonia: Secondary to COVID-19. High CRP, requiring HFNC. Not a candidate for remdesivir. Got Actemra. #Acute hypoxic respiratory failure: Requiring HFNC. #ESRD on HD: Renally adjust antibiotics #CHF Recs: -continue IV/PO Dexamethasone x 10 days -Continue empiric azithromycin for 5 days -Not a candidate for remdesivir due to renal failure -s/p Actemra 8 mg/kg x 1 on 04/30/2022 -prophylactic anticoagulation based on d-dimer per hospital protocol -CRP improving Pauline Costello MD, FACP, [facility] O: [phone] F: [phone] C: [phone] Subjective Date of service: 05/01/22 Interval history: No fever. Oxygen being weaned. She states she is coughing more. Objective - Exam Narrative Exam: Physical Exam: Constitutional: Alert, cooperative. Mild distress, on HFNC. Head, Ears, Nose: Normocephalic, atraumatic. External ears, nose normal Eyes: Conjunctivae/corneas clear. No icterus. No ptosis. Neck: Supple, no meningeal signs Cardiovascular: S1, S2 + Respiratory: AE fair bilaterally GI: Soft, non-tender; bowel sounds normal. No peritoneal signs Musculoskeletal: No pedal edema, no cyanosis. PermCath + Skin: No rash or abscess Hem/Lymphatic: No palpable cervical or supraclavicular nodes. No lymphangitis Psych: Mood ok. Affect normal Neurological: Awake, alert, oriented. - Constitutional Vitals: Vital Signs Temp Pulse Resp BP Pulse Ox 98.8 F 79 21 132/63 98 04/30/22 23:34 05/01/22 10:13 05/01/22 00:24 05/01/22 10:13 05/01/22 10:45 Temperature -Last 24 Hours Temperature 98.8 F Temperature 99.0 F Temperature 99.0 F - Labs CBC & Chem 7: 05/01/22 06:22 05/01/22 06:22 Labs: Abnormal lab results 04/30/22 04/30/22 05/01/22 Range/Units 07:21 10:00 06:22 RBC 2.65 L (3.65-5.03) M/mm3 Hgb 8.2 L (10.1-14.3) gm/dl Hct 25.9 L (30.3-42.9) % MCV 98 H (79-97) fl RDW 16.7 H (13.2-15.2) % Lymph % (Auto) 5.9 L (13.4-35.0) % Lymph # (Auto) 0.3 L (1.2-5.4) K/mm3 Seg Neutrophils % 89.9 H (40.0-70.0) % Seg Neuts % (Manual) 93.0 H (40.0-70.0) % Lymphocytes % (Manual) 6.0 L (13.4-35.0) % Lymphocytes # (Manual) 0.5 L (1.2-5.4) K/mm3 D-Dimer (0-234) ng/mlDDU BUN (7-17) mg/dL Creatinine (0.6-1.2) mg/dL Calcium (8.4-10.2) mg/dL Ferritin (10.0-200.0) ng/mL Lactate Dehydrogenase (91-180) units/L C-Reactive Protein (0.00-1.30) mg/dL Coronavirus (PCR) Positive A (Negative) 05/01/22 05/01/22 05/01/22 Range/Units 06: 06:22 06:22 RBC (3.65-5.03) M/mm3 Hgb (10.1-14.3) gm/dl Hct (30.3-42.9) % MCV (79-97) fl RDW (13.2-15.2) % Lymph % (Auto) (13.4-35.0) % Lymph # (Auto) (1.2-5.4) K/mm3 Seg Neutrophils % (40.0-70.0) % Seg Neuts % (Manual) (40.0-70.0) % Lymphocytes % (Manual) (13.4-35.0) % Lymphocytes # (Manual) (1.2-5.4) K/mm3 D-Dimer 1200.26 H (0-234) ng/mlDDU BUN 50 H (7-17) mg/dL Creatinine 3.4 H (0.6-1.2) mg/dL Calcium 8.2 L (8.4-10.2) mg/dL Ferritin 354.3 H (10.0-200.0) ng/mL Lactate Dehydrogenase 211 H (91-180) units/L C-Reactive Protein 2.10 H (0.00-1.30) mg/dL Coronavirus (PCR) (Negative)
--- NOTE | 2022-05-01 11:56 | Progress Note ---
Assessment and Plan Assessment and plan: #COVID-19 pneumonia #Acute hypoxic respiratory failure-improving - etiology: Secondary to COVID-19 pneumonia + possible acute heart failure - baseline oxygen requirements: Room air - supplemental oxygen: High flow nasal cannula 10 L / 70% FiO2 - Continue protocol: continue pulse oximetry, wean oxygen as tolerated, dexamethasone 8 mg daily x10 days, azithromycin 250 mg daily x5 days (completes on 05/02/2022), airborne and droplet precautions -Infectious disease consulted; appreciate recs. Patient not currently candidate for remdesivir given renal function. Pulmonology consulted; pending recs - continue to monitor #Possible acute heart failure - Continue CHF exacerbation protocol: Telemetry, Strict I/O, monitor urine output every shift, daily weights, afterload reduction, low-sodium diet, and fluid restriction of approximately 1.5 mL/day, IV Lasix 40 mg twice daily - Supplemental oxygen: High flow nasal cannula 10 L / 70% FiO2 - ProBNP on admission: 13,672 - TTE (04/28/2022) revealing EF 55-60%, normal-sized LV, normal LV systolic function, mild concentric LVH with mild diastolic dysfunction, and RVSP is 41 mmHg. - Continue to monitor #Elevated D-dimer D-dimer 1044 Unremarkable bilateral venous Dopplers to evaluate for possible DVT. Continue to monitor. #ESRD on hemodialysis -Access: Permacath in right upper chest -Outpatient schedule: Unknown -HD center: N/A -Nephrology consulted; appreciate recs. -Renally dose medications and avoid nephrotoxic drugs. Renal diet. #Macrocytic anemia Hemoglobin 8.8 Transfuse if hemoglobin <7 or patient becomes symptomatic. Continue to monitor. #Hypothyroidism Continue home levothyroxine 200 mcg daily #Mild protein caloric malnutrition Albumin 2.5 Continue dietary supplementation Critical Care Billing: The high probability of a clinically significant, sudden or life threatening deterioration of the [respiratory] system(s) required my full and direct attention, intervention and personal management. The aggregate critical care time was [60] minutes. This time is in addition to time spent performing reported procedures but includes the following: [x] Data Review and interpretation [x] Patient assessment and monitoring of vital signs [x] Documentation [x] Medication orders and management Disposition Plan: Continue medical management Total Time Spent with Patient (Minutes): 45 mins History Interval history: No acute events overnight. Hospitalist Physical - Constitutional Vitals: Temp Pulse Resp BP Pulse Ox 98.6 F 79 21 132/63 98 05/01/22 10:10 05/01/22 10:13 05/01/22 00:24 05/01/22 10:13 05/01/22 10:45 General appearance: Present: no acute distress, well-nourished - EENT Eyes: Present: PERRL, EOM intact ENT: hearing intact, clear oral mucosa, dentition normal - Neck Neck: Present: supple, normal ROM - Respiratory Respiratory effort: normal Respiratory: bilateral: diminished (on HFNC 10L/70% FiO2) - Cardiovascular Rhythm: regular Heart Sounds: Present: S1 & S2 - Extremities Extremities: no ischemia, pulses intact, pulses symmetrical, No edema, normal temperature, normal color Peripheral Pulses: within normal limits - Abdominal General gastrointestinal: soft, non-tender, non-distended, normal bowel sounds - Integumentary Integumentary: Present: clear, warm, dry - Psychiatric Psychiatric: appropriate mood/affect, memory intact, cooperative - Neurologic Neurologic: CNII-XII intact - Allied Health Allied health notes reviewed: nursing, case management HEART Score - HEART Score Troponin: Troponin T 0.075 ng/mL (0.00-0.029) H 04/28/22 14:49 Results - Labs CBC & Chem 7: 05/01/22 06:22 05/01/22 06:22 Labs: Laboratory Last Values WBC 5.3 K/mm3 (4.5-11.0) 05/01/22 06:22 RBC 2.65 M/mm3 (3.65-5.03) L 05/01/22 06:22 Hgb 8.2 gm/dl (10.1-14.3) L 05/01/22 06:22 Hct 25.9 % (30.3-42.9) L 05/01/22 06:22 MCV 98 fl (79-97) H 05/01/22 06:22 MCH 31 pg (28-32) 05/01/22 06:22 MCHC 32 % (30-34) 05/01/22 06:22 RDW 16.7 % (13.2-15.2) H 05/01/22 06:22 Plt Count 172 K/mm3 (140-440) 05/01/22 06:22 Lymph % (Auto) 5.9 % (13.4-35.0) L 05/01/22 06:22 [place] % (Auto) 4.1 % (0.0-7.3) 05/01/22 06:22 Eos % (Auto) 0.0 % (0.0-4.3) 05/01/22 06:22 Baso % (Auto) 0.1 % (0.0-1.8) 05/01/22 06:22 Lymph # (Auto) 0.3 K/mm3 (1.2-5.4) L 05/01/22 06:22 [place] # (Auto) 0.2 K/mm3 (0.0-0.8) 05/01/22 06:22 Eos # (Auto) 0.0 K/mm3 (0.0-0.4) 05/01/22 06:22 Baso # (Auto) 0.0 K/mm3 (0.0-0.1) 05/01/22 06:22 Add Manual Diff Complete 04/30/22 07:21 Total Counted 100 04/30/22 07:21 Seg Neutrophils % 89.9 % (40.0-70.0) H 05/01/22 06:22 Seg Neuts % (Manual) 93.0 % (40.0-70.0) H 04/30/22 07:21 Band Neutrophils % 0 % 04/30/22 07:21 Lymphocytes % (Manual) 6.0 % (13.4-35.0) L 04/30/22 07:21 Reactive Lymphs % (Man) 0 % 04/30/22 07:21 Monocytes % (Manual) 0 % (0.0-7.3) 04/30/22 07:21 Eosinophils % (Manual) 0 % (0.0-4.3) 04/30/22 07:21 Basophils % (Manual) 0 % (0.0-1.8) 04/30/22 07:21 Metamyelocytes % 0 % 04/30/22 07:21 Myelocytes % 1.0 % 04/30/22 07:21 Promyelocytes % 0 % 04/30/22 07:21 Blast Cells % 0 % 04/30/22 07:21 Nucleated RBC % Not Reportable 04/30/22 07:21 Seg Neutrophils # 4.8 K/mm3 (1.8-7.7) 05/01/22 06:22 Seg Neutrophils # Man 7.4 K/mm3 (1.8-7.7) 04/30/22 07:21 Band Neutrophils # 0.0 K/mm3 04/30/22 07:21 Lymphocytes # (Manual) 0.5 K/mm3 (1.2-5.4) L 04/30/22 07:21 Abs React Lymphs (Man) 0.0 K/mm3 04/30/22 07:21 Monocytes # (Manual) 0.0 K/mm3 (0.0-0.8) 04/30/22 07:21 Eosinophils # (Manual) 0.0 K/mm3 (0.0-0.4) 04/30/22 07:21 Basophils # (Manual) 0.0 K/mm3 (0.0-0.1) 04/30/22 07:21 Metamyelocytes # 0.0 K/mm3 04/30/22 07:21 Myelocytes # 0.1 K/mm3 04/30/22 07:21 Promyelocytes # 0.0 K/mm3 04/30/22 07:21 Blast Cells # 0.0 K/mm3 04/30/22 07:21 WBC Morphology Not Reportable 04/30/22 07:21 Hypersegmented Neuts Not Reportable 04/30/22 07:21 Hyposegmented Neuts Not Reportable 04/30/22 07:21 Hypogranular Neuts Not Reportable 04/30/22 07:21 Smudge Cells Not Reportable 04/30/22 07:21 Toxic Granulation Not Reportable 04/30/22 07:21 Toxic Vacuolation Not Reportable 04/30/22 07:21 Dohle Bodies Not Reportable 04/30/22 07:21 Pelger-Huet Anomaly Not Reportable 04/30/22 07:21 Kristi Rods Not Reportable 04/30/22 07:21 Platelet Estimate Consistent w auto 04/30/22 07:21 Clumped Platelets Not Reportable 04/30/22 07:21 Plt Clumps, EDTA Not Reportable 04/30/22 07:21 Large Platelets Not Reportable 04/30/22 07:21 Giant Platelets Not Reportable 04/30/22 07:21 Platelet Satelliting Not Reportable 04/30/22 07:21 Plt Morphology Comment Not Reportable 04/30/22 07:21 RBC Morphology Not Reportable 04/30/22 07:21 Dimorphic RBCs Not Reportable 04/30/22 07:21 Polychromasia Not Reportable 04/30/22 07:21 Hypochromasia Not Reportable 04/30/22 07:21 Poikilocytosis Not Reportable 04/30/22 07:21 Anisocytosis 1+ 04/30/22 07:21 Microcytosis Not Reportable 04/30/22 07:21 Macrocytosis Not Reportable 04/30/22 07:21 Spherocytes Not Reportable 04/30/22 07:21 Pappenheimer Bodies Not Reportable 04/30/22 07:21 Sickle Cells Not Reportable 04/30/22 07:21 Target Cells Not Reportable 04/30/22 07:21 Tear Drop Cells Not Reportable 04/30/22 07:21 Ovalocytes Not Reportable 04/30/22 07:21 Helmet Cells Not Reportable 04/30/22 07:21 Jett-Courtenay Bodies Not Reportable 04/30/22 07:21 Alva Rings Not Reportable 04/30/22 07:21 Herbie Cells Not Reportable 04/30/22 07:21 Bite Cells Not Reportable 04/30/22 07:21 Crenated Cell Not Reportable 04/30/22 07:21 Elliptocytes Not Reportable 04/30/22 07:21 Acanthocytes (Spur) Not Reportable 04/30/22 07:21 Rouleaux Not Reportable 04/30/22 07:21 Hemoglobin C Crystals Not Reportable 04/30/22 07:21 Schistocytes Not Reportable 04/30/22 07:21 Malaria parasites Not Reportable 04/30/22 07:21 Mayank Bodies Not Reportable 04/30/22 07:21 Hem Pathologist Commnt No 04/30/22 07:21 PT 13.5 Sec. (12.2-14.9) 04/28/22 14:49 INR 0.91 (0.87-1.13) 04/28/22 14:49 APTT 33.8 Sec. (24.2-36.6) 04/28/22 14:49 D-Dimer 1200.26 ng/mlDDU (0-234) H 05/01/22 06:22 Sodium 141 mmol/L (137-145) 05/01/22 06:22 Potassium 3.9 mmol/L (3.6-5.0) 05/01/22 06:22 Chloride 101.5 mmol/L (98-107) 05/01/22 06:22 Carbon Dioxide 30 mmol/L (22-30) 05/01/22 06:22 Anion Gap 13 mmol/L 05/01/22 06:22 BUN 50 mg/dL (7-17) H 05/01/22 06:22 Creatinine 3.4 mg/dL (0.6-1.2) H 05/01/22 06:22 Estimated GFR 14 ml/min 05/01/22 06:22 BUN/Creatinine Ratio 15 % 05/01/22 06:22 Glucose 99 mg/dL (65-100) 05/01/22 06:22 Calcium 8.2 mg/dL (8.4-10.2) L 05/01/22 06:22 Ferritin 354.3 ng/mL (10.0-200.0) H 05/01/22 06:22 Total Bilirubin 0.20 mg/dL (0.1-1.2) 04/28/22 14:49 AST 26 units/L (5-40) 04/28/22 14:49 ALT 14 units/L (7-56) 04/28/22 14:49 Alkaline Phosphatase 70 units/L (35-129) 04/28/22 14:49 Lactate Dehydrogenase 211 units/L (91-180) H 05/01/22 06:22 Troponin T 0.075 ng/mL (0.00-0.029) H 04/28/22 14:49 C-Reactive Protein 2.10 mg/dL (0.00-1.30) H 05/01/22 06:22 NT-Pro-B Natriuret Pep 43374 pg/mL (0-900) H 04/28/22 14:49 Total Protein 5.6 g/dL (6.3-8.2) L 04/28/22 14:49 Albumin 2.8 g/dL (3.9-5) L 04/28/22 14:49 Albumin/Globulin Ratio 1.0 % 04/28/22 14:49 Triglycerides 128 mg/dL (2-149) 04/28/22 14:49 Cholesterol 154 mg/dL (50-199) 04/28/22 14:49 LDL Cholesterol Direct 63 mg/dL (50-130) 04/28/22 14:49 HDL Cholesterol 64 mg/dL (40-59) H 04/28/22 14:49 Cholesterol/HDL Ratio 2.40 % 04/28/22 14:49 Nasal Screen MRSA (PCR) Negative (Negative) 04/29/22 02:09 Coronavirus (PCR) Positive (Negative) A 04/30/22 10:00 Hepatitis A IgM Ab Non-reactive (NonReactive) 04/29/22 10:27 Hep Bs Antigen Non-reactive (Negative) 04/29/22 10:27 Hep B Core IgM Ab Non-reactive (NonReactive) 04/29/22 10:27 Hepatitis C Antibody Non-reactive (NonReactive) 04/29/22 10:27 Microbiology: Microbiology 04/28/22 16:49 Peripheral/Venous Blood Culture - Preliminary NO GROWTH AFTER 48 HOURS 04/28/22 16:49 Peripheral/Venous Blood Culture - Preliminary NO GROWTH AFTER 48 HOURS Pichardo/IV: Voiding Method External Female Catheter Active Medications - Current Medications Current Medications: Generic Name Dose Route Start Last Admin Trade Name Freq PRN Reason Stop Dose Admin Acetaminophen 650 mg 04/28/22 23:21 04/29/22 23:29 Acetaminophen 325 Mg Tab PO 650 mg Q4H PRN Administration Pain MILD(1-3)/Fever >100.5/KENDALL Albuterol 2.5 mg 04/28/22 23:21 Albuterol 2.5 Mg/3 Ml Nebu IH Q3HRT PRN Shortness Of Breath Ascorbic Acid 500 mg 04/29/22 10:00 05/01/22 10:20 Ascorbic Acid 500 Mg Tab PO 500 mg DAILY TOSHIA Administration Azithromycin 500 mg 05/01/22 10:00 05/01/22 10:13 Azithromycin 250 Mg Tab PO 05/03/22 10:01 500 mg QDAY TOSHIA Administration Protocol Carvedilol 12.5 mg 04/29/22 10:00 05/01/22 10:13 Carvedilol 12.5 Mg Tab PO 12.5 mg BID TOSHIA Administration Dexamethasone 8 mg 04/29/22 10:00 05/01/22 10:13 Dexamethasone 4 Mg/Ml Vial IV 05/08/22 10:01 8 mg DAILY TOSHIA Administration Famotidine 20 mg 04/29/22 10:00 05/01/22 10:13 Famotidine 20 Mg Tab PO 20 mg DAILY TOSHIA Administration Ferrous Sulfate 325 mg 04/29/22 10:00 05/01/22 10:13 Ferrous Sulfate 325 Mg Tab PO 325 mg DAILY TOSHIA Administration Furosemide 40 mg 04/29/22 07:15 05/01/22 05:07 Furosemide 40 Mg/4 Ml Inj IV 40 mg 0600,1800 TOSHIA Administration Guaifenesin 200 mg 04/29/22 18:23 05/01/22 10:20 Guaifenesin 100 Mg/5 Ml Oral Liqd PO 200 mg Q4H PRN Administration Cough Heparin Sodium (Porcine) 5,000 unit 04/29/22 06:00 05/01/22 05:07 Heparin 5,000 Unit/1 Ml Vial SUB-Q 5,000 unit Q8HR TOSHIA Administration Sodium Chloride 100 mls @ 999 mls/hr 04/29/22 10:30 Nacl 0.9% IV HOMER PRN Hypotension Levothyroxine Sodium 200 mcg 04/29/22 06:00 05/01/22 05:07 Levothyroxine 100 Mcg Tab PO 200 mcg QAM@0600 TOSHIA Administration Morphine Sulfate 2 mg 04/28/22 23:21 Morphine 2 Mg/1 Ml Inj IV Q4H PRN Pain, Moderate (4-6) Morphine Sulfate 4 mg 04/28/22 23:21 Morphine 4 Mg/1 Ml Inj IV Q4H PRN Pain , Severe (7-10) Ondansetron HCl 4 mg 04/28/22 23:21 Ondansetron 4 Mg/2 Ml Inj IV Q8H PRN Nausea And Vomiting Sevelamer Carbonate 800 mg 04/29/22 08:00 05/01/22 10:12 Sevelamer Carbonate 800 Mg Tab PO 800 mg TIDWM TOSHIA Administration Sodium Chloride 10 ml 04/29/22 10:00 05/01/22 10:13 Sodium Chloride 0.9% 10 Ml Flush Syringe IV 10 ml BID TOSHIA Administration Sodium Chloride 10 ml 04/28/22 23:21 Sodium Chloride 0.9% 10 Ml Flush Syringe IV PRN PRN LINE FLUSH Nutrition/Malnutrition Assess - Dietary Evaluation Nutrition/Malnutrition Findings: Nutrition Notes Start: 04/29/22 12:04 Freq: Status: Active Protocol: Document 04/29/22 12:04 ASHISH (Rec: 04/29/22 12:32 ASHISH [id number]) Nutrition Notes Need for Assessment generated from: MD Order Initial or Follow up Assessment Current Diagnosis CKD (stage V CKD),Hypertension ,Respiratory Failure Other Pertinent Diagnosis ESRD+HD, COVID-19/Pneumonia, CHF, Hypothyroidism. Current Diet Cardiac Diet (since B 04/28), Cardiac -Renal- Diet+D Suppl ( from D 04/29). Labs/Tests 04/29: BUN 48, Crea 4.0, Glu 147. Pertinent Medications 04/29: Vit C, FeSO4, Levothyroxine, Renvela, others nutritionally unremarkable. 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 Weight Status Overweight Subjective/Other Information RD consult for dietary supplementation assessment. No reports available on Pt's PO intake of meals at the time , will assess at F/U. I will prescribe dietary supplements to compensate for possible poor or insufficient PO intake of meals during LOS. I will recommend renal restriction to current diet, to support Pt's ESRD condition during LOS. Pt is on High Flow Nasal Cannula, O2 saturation @ 91%, according to Physical Assessment History notes. Pt has missing teeth, according to Physical Assessment History notes. Pt is a SNF resident, according to Progress notes. Percent of energy/protein needs met: Prescribed Cardiac -Renal- Diet provides for energy/ protein needs (2,230 Kcal/85 g ) during LOS; additionally, Dietary Supplements will compensate for possible poor or insufficient PO intake of meals with 850 Kcal and 38 g of protein. Burn Absent Trauma Absent GI Symptoms None Food Allergy No Skin Integrity/Comment Assessment WNL. Minimum of two criteria No Fluid Accumulation N/A Reduced Surgical Physician Assistant Strength N/A (non-severe) Protein-Calorie Malnutrition N\A #2 Nutrition Diagnosis Altered nutrition-related laboratory values Etiology CKD V, ESRD. As Evidenced by Signs and Symptoms 04/29: BUN 48, Crea 4.0, Glu 147. #1 Nutrition Diagnosis Predicted suboptimal energy intake Etiology Ongoing and concomitant chronic metabolic conditions. As Evidenced by Signs and Symptoms No reports available on Pt's PO intake of meals at the time , MD request for dietary supplements. Is patient on ventilator? No Is Patient Ambulatory and/or Out of Bed No REE-([place]-St. Jeor-confined to bed) 1528.644 Kcal/Kg value to use for calculation 19 Approximate Energy Requirements Using 1379 kcal/Kg Calculation Used for Recommendations Kcal/kg Additional Notes Protein: >1.2 g/Kg ABW; >88 g/ day. Fluids: 1 ml/Kcal, or as per MD. Nutrition Intervention Change Diet Order: Add Renal restriction to Cardiac Diet, and continue as tolerated. Add Supplement/Snack (indicate name/kcal Start 8 fl oz Nepro w/ /protein ) CARBSTEADY; BID Provides kCal: 850 Provides Protein (gm) 38 Goal #1 Compensate, through dietary supplementation, for possible poor or insufficient PO intake of meals during LOS. Goal #2 Help reach and maintain acceptable chemistry lab values during LOS. Goal #3 Adjust the dietary intervention to better serve Pt's needs and clinical conditions during LOS. Follow-Up By: 05/06/22 Additional Comments Continue monitoring food tolerance, %PO intake of meals , dietary supplements, and BM.
--- NOTE | 2022-05-01 14:10 | Progress Note ---
Assessment and Plan This is a 61 year old woman who presents with dyspnea, COVID-19 # ESRD: continue HD // or prn, due today - daily labs - renally dose meds - avoid nephrotoxins - renal diet - verbal consent obtained for HD # Anemia: last hemoglobin 9.6->8.8->8.2, restart ESAs with HD TIW # HTN: UF as tolerated. BP stable # Secondary Hyperparathyroidism: continue home binders as needed, vitamin D analogs prn # COVID-19 Pneumonia, Respiratory Failure: on HFNC 70% Fio2, pulmonary/ID also following # CHF: note BNP 13K on admission, UF as tolerated Subjective Date of service: 05/01/22 Interval history: Chart, labs, vitals reviewed. Remains on HFNC Objective - Exam Narrative Exam: No direct examination today due to COVID-19, need to limit PPE - Vital Signs Vital signs: Vital Signs - 12hr 05/01/22 05/01/22 05/01/22 10:10 10:13 10:45 Temperature 98.6 F Pulse Rate 79 79 Respiratory Rate Blood Pressure 132/63 132/63 O2 Sat by Pulse 97 98 Oximetry 05/01/22 11:50 Temperature Pulse Rate Respiratory 21 Rate Blood Pressure O2 Sat by Pulse 100 Oximetry - Lab 05/01/22 06:22 05/01/22 06:22 Most recent lab results Calcium 8.2 mg/dL (8.4-10.2) L 05/01/22 06:22 Medications & Allergies - Medications Allergies/Adverse Reactions: Allergies NSAIDS (Non-Steroidal Anti-Inflamma Allergy (Verified 04/28/22 13:30) Rash Sulfa (Sulfonamide Antibiotics) Allergy (Verified 04/28/22 13:30) Rash Home Medications: Home Medications Medication Instructions Recorded Confirmed Last Taken Type Ascorbic Acid [Vitamin C] 500 mg PO DAILY 04/28/22 04/28/22 Unknown History Ferrous Sulfate [Ferrous Sulfate 324 mg PO DAILY 04/28/22 04/28/22 Unknown History 324 MG] Levothyroxine Sodium 200 mcg PO DAILY 04/28/22 04/28/22 Unknown History [Levothyroxine] Venlafaxine [Effexor 37.5mg tab] 37.5 mg PO QDAY 04/28/22 04/28/22 Unknown History carvediloL [Coreg] 12.5 mg PO BID 04/28/22 04/28/22 Unknown History sevelamer HCL [Sevelamer HCl] 800 mg PO TID 04/28/22 04/28/22 Unknown History Active Medications: Generic Name Dose Route Start Last Admin Trade Name Freq PRN Reason Stop Dose Admin Acetaminophen 650 mg 04/28/22 23:21 04/29/22 23:29 Acetaminophen 325 Mg Tab PO 650 mg Q4H PRN Administration Pain MILD(1-3)/Fever >100.5/KENDALL Albuterol 2.5 mg 04/28/22 23:21 Albuterol 2.5 Mg/3 Ml Nebu IH Q3HRT PRN Shortness Of Breath Ascorbic Acid 500 mg 04/29/22 10:00 05/01/22 10:20 Ascorbic Acid 500 Mg Tab PO 500 mg DAILY TOSHIA Administration Azithromycin 500 mg 05/01/22 10:00 05/01/22 10:13 Azithromycin 250 Mg Tab PO 05/03/22 10:01 500 mg QDAY TOSHIA Administration Protocol Carvedilol 12.5 mg 04/29/22 10:00 05/01/22 10:13 Carvedilol 12.5 Mg Tab PO 12.5 mg BID TOSHIA Administration Dexamethasone 8 mg 04/29/22 10:00 05/01/22 10:13 Dexamethasone 4 Mg/Ml Vial IV 05/08/22 10:01 8 mg DAILY TOSHIA Administration Famotidine 20 mg 04/29/22 10:00 05/01/22 10:13 Famotidine 20 Mg Tab PO 20 mg DAILY TOSHIA Administration Ferrous Sulfate 325 mg 04/29/22 10:00 05/01/22 10:13 Ferrous Sulfate 325 Mg Tab PO 325 mg DAILY TOSHIA Administration Furosemide 40 mg 04/29/22 07:15 05/01/22 05:07 Furosemide 40 Mg/4 Ml Inj IV 40 mg 0600,1800 TOSHIA Administration Guaifenesin 200 mg 04/29/22 18:23 05/01/22 10:20 Guaifenesin 100 Mg/5 Ml Oral Liqd PO 200 mg Q4H PRN Administration Cough Heparin Sodium (Porcine) 5,000 unit 04/29/22 06:00 05/01/22 05:07 Heparin 5,000 Unit/1 Ml Vial SUB-Q 5,000 unit Q8HR TOSHIA Administration Sodium Chloride 100 mls @ 999 mls/hr 04/29/22 10:30 Nacl 0.9% IV HOMER PRN Hypotension Levothyroxine Sodium 200 mcg 04/29/22 06:00 05/01/22 05:07 Levothyroxine 100 Mcg Tab PO 200 mcg QAM@0600 TOSHIA Administration Morphine Sulfate 2 mg 04/28/22 23:21 Morphine 2 Mg/1 Ml Inj IV Q4H PRN Pain, Moderate (4-6) Morphine Sulfate 4 mg 04/28/22 23:21 Morphine 4 Mg/1 Ml Inj IV Q4H PRN Pain , Severe (7-10) Ondansetron HCl 4 mg 04/28/22 23:21 Ondansetron 4 Mg/2 Ml Inj IV Q8H PRN Nausea And Vomiting Sevelamer Carbonate 800 mg 04/29/22 08:00 05/01/22 12:35 Sevelamer Carbonate 800 Mg Tab PO 800 mg TIDWM TOSHIA Administration Sodium Chloride 10 ml 04/29/22 10:00 05/01/22 10:13 Sodium Chloride 0.9% 10 Ml Flush Syringe IV 10 ml BID TOSHIA Administration Sodium Chloride 10 ml 04/28/22 23:21 Sodium Chloride 0.9% 10 Ml Flush Syringe IV PRN PRN LINE FLUSH
[2022-05-01] MEDS: EPOETIN ALFA-EPBX 20,000 UNIT/1 ML VIAL IV PRN (17:20)
[2022-05-01] MEDS: ACETAMINOPHEN 325 MG TAB PO PRN (20:02)
[2022-05-02] MEDS: FUROSEMIDE 40 MG/4 ML INJ IV SCH (05:19)
[2022-05-02] MEDS: LEVOTHYROXINE 100 MCG TAB PO SCH (05:19)
[2022-05-02] MEDS: HEPARIN 5,000 UNIT/1 ML VIAL SUB-Q SCH ×3 (05:20→22:20)
[2022-05-02] MEDS: dexAMETHasone 4 MG/ML VIAL IV SCH (09:19)
[2022-05-02] MEDS: carvediloL 12.5 MG TAB PO SCH ×2 (09:19→22:21)
[2022-05-02] MEDS: SEVELAMER CARBONATE 800 MG TAB PO SCH ×3 (09:19→16:51)
[2022-05-02] MEDS: FAMOTIDINE 20 MG TAB PO SCH (09:19)
[2022-05-02] MEDS: FERROUS SULFATE 325 MG TAB PO SCH (09:19)
[2022-05-02] MEDS: guaiFENesin 100 MG/5 ML ORAL LIQD PO PRN ×2 (09:20→13:40)
[2022-05-02] MEDS: ASCORBIC ACID 500 MG TAB PO SCH (09:20)
--- NOTE | 2022-05-02 09:28 | Progress Note ---
Assessment and Plan Assessment and plan: #COVID-19 pneumonia #Acute hypoxic respiratory failure-improving - etiology: Secondary to COVID-19 pneumonia + possible acute heart failure - baseline oxygen requirements: Room air - supplemental oxygen: High flow nasal cannula 12 L / 40% FiO2 - Continue protocol: continue pulse oximetry, wean oxygen as tolerated, dexamethasone 8 mg daily x10 days, azithromycin 250 mg daily x5 days (completes on 05/02/2022), airborne and droplet precautions -Infectious disease consulted; appreciate recs. Patient not currently candidate for remdesivir given renal function. Pulmonology consulted; appreciate recs - continue to monitor #Possible acute heart failure-ruled out - Continue CHF exacerbation protocol: Telemetry, Strict I/O, monitor urine output every shift, daily weights, afterload reduction, low-sodium diet, and fluid restriction of approximately 1.5 mL/day, IV Lasix 40 mg twice daily - Supplemental oxygen: High flow nasal cannula 10 L / 70% FiO2 - ProBNP on admission: 13,672 - TTE (04/28/2022) revealing EF 55-60%, normal-sized LV, normal LV systolic function, mild concentric LVH with mild diastolic dysfunction, and RVSP is 41 mmHg. - Continue to monitor #Elevated D-dimer D-dimer 1044 Unremarkable bilateral venous Dopplers to evaluate for possible DVT. Continue to monitor. #ESRD on hemodialysis -Access: Permacath in right upper chest -Outpatient schedule: Unknown -HD center: N/A -Nephrology consulted; appreciate recs. -Renally dose medications and avoid nephrotoxic drugs. Renal diet. #Macrocytic anemia Hemoglobin 8.8 Transfuse if hemoglobin <7 or patient becomes symptomatic. Continue to monitor. #Hypothyroidism Continue home levothyroxine 200 mcg daily #Mild protein caloric malnutrition Albumin 2.5 Continue dietary supplementation Critical Care Billing: The high probability of a clinically significant, sudden or life threatening deterioration of the [respiratory] system(s) required my full and direct attention, intervention and personal management. The aggregate critical care time was [60] minutes. This time is in addition to time spent performing reported procedures but includes the following: [x] Data Review and interpretation [x] Patient assessment and monitoring of vital signs [x] Documentation [x] Medication orders and management #Discharge planning - Patient is pending further respiratory improvement. - Case management has been made aware. - Discharge is tentatively 24-72 hours Disposition Plan: Continue medical management Total Time Spent with Patient (Minutes): 45 min History Interval history: No acute events overnight. Hospitalist Physical - Constitutional Vitals: Temp Pulse Resp BP Pulse Ox 98.6 F 76 22 169/88 95 05/02/22 06:29 05/02/22 09:19 05/02/22 06:29 05/02/22 09:19 05/02/22 06:29 General appearance: Present: no acute distress, well-nourished - EENT Eyes: Present: PERRL, EOM intact ENT: hearing intact, clear oral mucosa, dentition normal - Neck Neck: Present: supple, normal ROM - Respiratory Respiratory effort: normal Respiratory: bilateral: diminished (on HFNC 12L/40% FiO2) - Cardiovascular Rhythm: regular Heart Sounds: Present: S1 & S2 - Extremities Extremities: no ischemia, pulses intact, pulses symmetrical, No edema, normal temperature, normal color Peripheral Pulses: within normal limits - Abdominal General gastrointestinal: soft, non-tender, non-distended, normal bowel sounds - Integumentary Integumentary: Present: clear, warm, dry - Psychiatric Psychiatric: appropriate mood/affect, intact judgment & insight, memory intact, cooperative - Neurologic Neurologic: CNII-XII intact, moves all extremities - Allied Health Allied health notes reviewed: nursing HEART Score - HEART Score Troponin: Troponin T 0.075 ng/mL (0.00-0.029) H 04/28/22 14:49 Results - Labs CBC & Chem 7: 05/01/22 06:22 05/01/22 06:22 Labs: Laboratory Last Values WBC 5.3 K/mm3 (4.5-11.0) 05/01/22 06:22 RBC 2.65 M/mm3 (3.65-5.03) L 05/01/22 06:22 Hgb 8.2 gm/dl (10.1-14.3) L 05/01/22 06:22 Hct 25.9 % (30.3-42.9) L 05/01/22 06:22 MCV 98 fl (79-97) H 05/01/22 06:22 MCH 31 pg (28-32) 05/01/22 06:22 MCHC 32 % (30-34) 05/01/22 06:22 RDW 16.7 % (13.2-15.2) H 05/01/22 06:22 Plt Count 172 K/mm3 (140-440) 05/01/22 06:22 Lymph % (Auto) 5.9 % (13.4-35.0) L 05/01/22 06:22 Jennings % (Auto) 4.1 % (0.0-7.3) 05/01/22 06:22 Eos % (Auto) 0.0 % (0.0-4.3) 05/01/22 06:22 Baso % (Auto) 0.1 % (0.0-1.8) 05/01/22 06:22 Lymph # (Auto) 0.3 K/mm3 (1.2-5.4) L 05/01/22 06:22 Jennings # (Auto) 0.2 K/mm3 (0.0-0.8) 05/01/22 06:22 Eos # (Auto) 0.0 K/mm3 (0.0-0.4) 05/01/22 06:22 Baso # (Auto) 0.0 K/mm3 (0.0-0.1) 05/01/22 06:22 Add Manual Diff Complete 04/30/22 07:21 Total Counted 100 04/30/22 07:21 Seg Neutrophils % 89.9 % (40.0-70.0) H 05/01/22 06:22 Seg Neuts % (Manual) 93.0 % (40.0-70.0) H 04/30/22 07:21 Band Neutrophils % 0 % 04/30/22 07:21 Lymphocytes % (Manual) 6.0 % (13.4-35.0) L 04/30/22 07:21 Reactive Lymphs % (Man) 0 % 04/30/22 07:21 Monocytes % (Manual) 0 % (0.0-7.3) 04/30/22 07:21 Eosinophils % (Manual) 0 % (0.0-4.3) 04/30/22 07:21 Basophils % (Manual) 0 % (0.0-1.8) 04/30/22 07:21 Metamyelocytes % 0 % 04/30/22 07:21 Myelocytes % 1.0 % 04/30/22 07:21 Promyelocytes % 0 % 04/30/22 07:21 Blast Cells % 0 % 04/30/22 07:21 Nucleated RBC % Not Reportable 04/30/22 07:21 Seg Neutrophils # 4.8 K/mm3 (1.8-7.7) 05/01/22 06:22 Seg Neutrophils # Man 7.4 K/mm3 (1.8-7.7) 04/30/22 07:21 Band Neutrophils # 0.0 K/mm3 04/30/22 07:21 Lymphocytes # (Manual) 0.5 K/mm3 (1.2-5.4) L 04/30/22 07:21 Abs React Lymphs (Man) 0.0 K/mm3 04/30/22 07:21 Monocytes # (Manual) 0.0 K/mm3 (0.0-0.8) 04/30/22 07:21 Eosinophils # (Manual) 0.0 K/mm3 (0.0-0.4) 04/30/22 07:21 Basophils # (Manual) 0.0 K/mm3 (0.0-0.1) 04/30/22 07:21 Metamyelocytes # 0.0 K/mm3 04/30/22 07:21 Myelocytes # 0.1 K/mm3 04/30/22 07:21 Promyelocytes # 0.0 K/mm3 04/30/22 07:21 Blast Cells # 0.0 K/mm3 04/30/22 07:21 WBC Morphology Not Reportable 04/30/22 07:21 Hypersegmented Neuts Not Reportable 04/30/22 07:21 Hyposegmented Neuts Not Reportable 04/30/22 07:21 Hypogranular Neuts Not Reportable 04/30/22 07:21 Smudge Cells Not Reportable 04/30/22 07:21 Toxic Granulation Not Reportable 04/30/22 07:21 Toxic Vacuolation Not Reportable 04/30/22 07:21 Dohle Bodies Not Reportable 04/30/22 07:21 Pelger-Huet Anomaly Not Reportable 04/30/22 07:21 Kristi Rods Not Reportable 04/30/22 07:21 Platelet Estimate Consistent w auto 04/30/22 07:21 Clumped Platelets Not Reportable 04/30/22 07:21 Plt Clumps, EDTA Not Reportable 04/30/22 07:21 Large Platelets Not Reportable 04/30/22 07:21 Giant Platelets Not Reportable 04/30/22 07:21 Platelet Satelliting Not Reportable 04/30/22 07:21 Plt Morphology Comment Not Reportable 04/30/22 07:21 RBC Morphology Not Reportable 04/30/22 07:21 Dimorphic RBCs Not Reportable 04/30/22 07:21 Polychromasia Not Reportable 04/30/22 07:21 Hypochromasia Not Reportable 04/30/22 07:21 Poikilocytosis Not Reportable 04/30/22 07:21 Anisocytosis 1+ 04/30/22 07:21 Microcytosis Not Reportable 04/30/22 07:21 Macrocytosis Not Reportable 04/30/22 07:21 Spherocytes Not Reportable 04/30/22 07:21 Pappenheimer Bodies Not Reportable 04/30/22 07:21 Sickle Cells Not Reportable 04/30/22 07:21 Target Cells Not Reportable 04/30/22 07:21 Tear Drop Cells Not Reportable 04/30/22 07:21 Ovalocytes Not Reportable 04/30/22 07:21 Helmet Cells Not Reportable 04/30/22 07:21 [place] Bodies Not Reportable 04/30/22 07:21 [place] Rings Not Reportable 04/30/22 07:21 Herbie Cells Not Reportable 04/30/22 07:21 Bite Cells Not Reportable 04/30/22 07:21 Crenated Cell Not Reportable 04/30/22 07:21 Elliptocytes Not Reportable 04/30/22 07:21 Acanthocytes (Spur) Not Reportable 04/30/22 07:21 Rouleaux Not Reportable 04/30/22 07:21 Hemoglobin C Crystals Not Reportable 04/30/22 07:21 Schistocytes Not Reportable 04/30/22 07:21 Malaria parasites Not Reportable 04/30/22 07:21 Mayank Bodies Not Reportable 04/30/22 07:21 Hem Pathologist Commnt No 04/30/22 07:21 PT 13.5 Sec. (12.2-14.9) 04/28/22 14:49 INR 0.91 (0.87-1.13) 04/28/22 14:49 APTT 33.8 Sec. (24.2-36.6) 04/28/22 14:49 D-Dimer 1200.26 ng/mlDDU (0-234) H 05/01/22 06:22 Sodium 141 mmol/L (137-145) 05/01/22 06:22 Potassium 3.9 mmol/L (3.6-5.0) 05/01/22 06:22 Chloride 101.5 mmol/L (98-107) 05/01/22 06:22 Carbon Dioxide 30 mmol/L (22-30) 05/01/22 06:22 Anion Gap 13 mmol/L 05/01/22 06:22 BUN 50 mg/dL (7-17) H 05/01/22 06:22 Creatinine 3.4 mg/dL (0.6-1.2) H 05/01/22 06:22 Estimated GFR 14 ml/min 05/01/22 06:22 BUN/Creatinine Ratio 15 % 05/01/22 06:22 Glucose 99 mg/dL (65-100) 05/01/22 06:22 Calcium 8.2 mg/dL (8.4-10.2) L 05/01/22 06:22 Ferritin 354.3 ng/mL (10.0-200.0) H 05/01/22 06:22 Total Bilirubin 0.20 mg/dL (0.1-1.2) 04/28/22 14:49 AST 26 units/L (5-40) 04/28/22 14:49 ALT 14 units/L (7-56) 04/28/22 14:49 Alkaline Phosphatase 70 units/L (35-129) 04/28/22 14:49 Lactate Dehydrogenase 211 units/L (91-180) H 05/01/22 06:22 Troponin T 0.075 ng/mL (0.00-0.029) H 04/28/22 14:49 C-Reactive Protein 2.10 mg/dL (0.00-1.30) H 05/01/22 06:22 NT-Pro-B Natriuret Pep 74814 pg/mL (0-900) H 04/28/22 14:49 Total Protein 5.6 g/dL (6.3-8.2) L 04/28/22 14:49 Albumin 2.8 g/dL (3.9-5) L 04/28/22 14:49 Albumin/Globulin Ratio 1.0 % 04/28/22 14:49 Triglycerides 128 mg/dL (2-149) 04/28/22 14:49 Cholesterol 154 mg/dL (50-199) 04/28/22 14:49 LDL Cholesterol Direct 63 mg/dL (50-130) 04/28/22 14:49 HDL Cholesterol 64 mg/dL (40-59) H 04/28/22 14:49 Cholesterol/HDL Ratio 2.40 % 04/28/22 14:49 Nasal Screen MRSA (PCR) Negative (Negative) 04/29/22 02:09 Coronavirus (PCR) Positive (Negative) A 04/30/22 10:00 Hepatitis A IgM Ab Non-reactive (NonReactive) 04/29/22 10:27 Hep Bs Antigen Non-reactive (Negative) 04/29/22 10:27 Hep B Core IgM Ab Non-reactive (NonReactive) 04/29/22 10:27 Hepatitis C Antibody Non-reactive (NonReactive) 04/29/22 10:27 Microbiology: Microbiology 04/28/22 16:49 Peripheral/Venous Blood Culture - Preliminary NO GROWTH AFTER 72 HOURS 04/28/22 16:49 Peripheral/Venous Blood Culture - Preliminary NO GROWTH AFTER 72 HOURS Pichardo/IV: Voiding Method External Female Catheter Active Medications - Current Medications Current Medications: Generic Name Dose Route Start Last Admin Trade Name Freq PRN Reason Stop Dose Admin Acetaminophen 650 mg 04/28/22 23:21 05/01/22 20:02 Acetaminophen 325 Mg Tab PO 650 mg Q4H PRN Administration Pain MILD(1-3)/Fever >100.5/KENDALL Albuterol 2.5 mg 04/28/22 23:21 Albuterol 2.5 Mg/3 Ml Nebu IH Q3HRT PRN Shortness Of Breath Ascorbic Acid 500 mg 04/29/22 10:00 05/02/22 09:20 Ascorbic Acid 500 Mg Tab PO Not Given DAILY TOSHIA Carvedilol 12.5 mg 04/29/22 10:00 05/02/22 09:19 Carvedilol 12.5 Mg Tab PO 12.5 mg BID TOSHIA Administration Dexamethasone 8 mg 04/29/22 10:00 05/02/22 09:19 Dexamethasone 4 Mg/Ml Vial IV 05/08/22 10:01 8 mg DAILY TOSHIA Administration Epoetin Ck-epbx 20,000 unit 05/01/22 14:10 05/01/22 17:20 Epoetin Ck-Epbx 20,000 Unit/1 Ml Vial IV 20,000 unit HOMER PRN Administration hemodialysis Famotidine 20 mg 04/29/22 10:00 05/02/22 09:19 Famotidine 20 Mg Tab PO 20 mg DAILY TOSHIA Administration Ferrous Sulfate 325 mg 04/29/22 10:00 05/02/22 09:19 Ferrous Sulfate 325 Mg Tab PO 325 mg DAILY TOSHIA Administration Guaifenesin 200 mg 04/29/22 18:23 05/02/22 09:20 Guaifenesin 100 Mg/5 Ml Oral Liqd PO 200 mg Q4H PRN Administration Cough Heparin Sodium (Porcine) 5,000 unit 04/29/22 06:00 05/02/22 05:20 Heparin 5,000 Unit/1 Ml Vial SUB-Q 5,000 unit Q8HR TOSHIA Administration Sodium Chloride 100 mls @ 999 mls/hr 04/29/22 10:30 Nacl 0.9% IV HOMER PRN Hypotension Levothyroxine Sodium 200 mcg 04/29/22 06:00 05/02/22 05:19 Levothyroxine 100 Mcg Tab PO 200 mcg QAM@0600 TOSHIA Administration Morphine Sulfate 2 mg 04/28/22 23:21 Morphine 2 Mg/1 Ml Inj IV Q4H PRN Pain, Moderate (4-6) Morphine Sulfate 4 mg 04/28/22 23:21 Morphine 4 Mg/1 Ml Inj IV Q4H PRN Pain , Severe (7-10) Ondansetron HCl 4 mg 04/28/22 23:21 Ondansetron 4 Mg/2 Ml Inj IV Q8H PRN Nausea And Vomiting Sevelamer Carbonate 800 mg 04/29/22 08:00 05/02/22 09:19 Sevelamer Carbonate 800 Mg Tab PO 800 mg TIDWM TOSHIA Administration Sodium Chloride 10 ml 04/29/22 10:00 05/02/22 09:20 Sodium Chloride 0.9% 10 Ml Flush Syringe IV 10 ml BID TOSHIA Administration Sodium Chloride 10 ml 04/28/22 23:21 Sodium Chloride 0.9% 10 Ml Flush Syringe IV PRN PRN LINE FLUSH Nutrition/Malnutrition Assess - Dietary Evaluation Nutrition/Malnutrition Findings: Nutrition Notes Start: 04/29/22 12:04 Freq: Status: Active Protocol: Document 04/29/22 12:04 ASHISH (Rec: 04/29/22 12:32 ASHISH [id number]) Nutrition Notes Need for Assessment generated from: MD Order Initial or Follow up Assessment Current Diagnosis CKD (stage V CKD),Hypertension ,Respiratory Failure Other Pertinent Diagnosis ESRD+HD, COVID-19/Pneumonia, CHF, Hypothyroidism. Current Diet Cardiac Diet (since B 04/28), Cardiac -Renal- Diet+D Suppl ( from D 04/29). Labs/Tests 04/29: BUN 48, Crea 4.0, Glu 147. Pertinent Medications 04/29: Vit C, FeSO4, Levothyroxine, Renvela, others nutritionally unremarkable. 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 Weight Status Overweight Subjective/Other Information RD consult for dietary supplementation assessment. No reports available on Pt's PO intake of meals at the time , will assess at F/U. I will prescribe dietary supplements to compensate for possible poor or insufficient PO intake of meals during LOS. I will recommend renal restriction to current diet, to support Pt's ESRD condition during LOS. Pt is on High Flow Nasal Cannula, O2 saturation @ 91%, according to Physical Assessment History notes. Pt has missing teeth, according to Physical Assessment History notes. Pt is a SNF resident, according to Progress notes. Percent of energy/protein needs met: Prescribed Cardiac -Renal- Diet provides for energy/ protein needs (2,230 Kcal/85 g ) during LOS; additionally, Dietary Supplements will compensate for possible poor or insufficient PO intake of meals with 850 Kcal and 38 g of protein. Burn Absent Trauma Absent GI Symptoms None Food Allergy No Skin Integrity/Comment Assessment WNL. 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 As Evidenced by Signs and Symptoms 04/29: BUN 48, Crea 4.0, Glu 147. #1 Nutrition Diagnosis Predicted suboptimal energy intake Etiology Ongoing and concomitant chronic metabolic conditions. As Evidenced by Signs and Symptoms No reports available on Pt's PO intake of meals at the time , MD request for dietary supplements. Is patient on ventilator? No Is Patient Ambulatory and/or Out of Bed No REE-([place]. Jeor-confined to bed) 1528.644 Kcal/Kg value to use for calculation 19 Approximate Energy Requirements Using 1379 kcal/Kg Calculation Used for Recommendations Kcal/kg Additional Notes Protein: >1.2 g/Kg ABW; >88 g/ day. Fluids: 1 ml/Kcal, or as per MD. Nutrition Intervention Change Diet Order: Add Renal restriction to Cardiac Diet, and continue as tolerated. Add Supplement/Snack (indicate name/kcal Start 8 fl oz Nepro w/ /protein ) CARBSTEADY; BID Provides kCal: 850 Provides Protein (gm) 38 Goal #1 Compensate, through dietary supplementation, for possible poor or insufficient PO intake of meals during LOS. Goal #2 Help reach and maintain acceptable chemistry lab values during LOS. Goal #3 Adjust the dietary intervention to better serve Pt's needs and clinical conditions during LOS. Follow-Up By: 05/06/22 Additional Comments Continue monitoring food tolerance, %PO intake of meals , dietary supplements, and BM.
--- NOTE | 2022-05-02 09:54 | Progress Note ---
Assessment and Plan Cultures: SARS CoV2 PCR: Positive 04/28/2022 blood culture: no growth A/P: 61-year-old female with ESRD on HD, hypertension, hypothyroidism, long-term resident was brought into the emergency room due to shortness of breath: #Bilateral pneumonia: Secondary to COVID-19. High CRP, requiring HFNC. Not a candidate for remdesivir. Got Actemra. #Acute hypoxic respiratory failure: Requiring HFNC, improving. #ESRD on HD: Renally adjust antibiotics #CHF Recs: -continue IV/PO Dexamethasone x 10 days -completed abx -Not a candidate for remdesivir due to renal failure -s/p Actemra 8 mg/kg x 1 on 04/30/2022 -prophylactic anticoagulation based on d-dimer per hospital protocol Pauline Costello MD, FACP, [facility] ([facility] O: [phone] F: [phone] C: [phone] Subjective Date of service: 05/02/22 Interval history: No fever. Oxygen is at 12 L/min. Eating her breakfast. Feeling better. Objective - Exam Narrative Exam: Physical Exam: Constitutional: Alert, cooperative. No distress. Head, Ears, Nose: Normocephalic, atraumatic. External ears, nose normal Eyes: Conjunctivae/corneas clear. No icterus. No ptosis. Neck: Supple, no meningeal signs Cardiovascular: S1, S2 + Respiratory: AE fair bilaterally GI: Soft, non-tender; bowel sounds normal. No peritoneal signs Musculoskeletal: No pedal edema, no cyanosis. PermCath + Skin: No rash or abscess Hem/Lymphatic: No palpable cervical or supraclavicular nodes. No lymphangitis Psych: Mood ok. Affect normal Neurological: Awake, alert, oriented. - Constitutional Vitals: Vital Signs Temp Pulse Resp BP Pulse Ox 99.1 F 75 21 169/88 100 05/02/22 09:14 05/02/22 09:36 05/02/22 09:39 05/02/22 09:19 05/02/22 09:39 Temperature -Last 24 Hours Temperature 99.1 F Temperature 98.6 F Temperature 98.1 F Temperature 97.8 F Temperature 98.0 F Temperature 98.6 F - Labs CBC & Chem 7: 05/01/22 06:22 05/01/22 06:22
--- NOTE | 2022-05-02 13:49 | Progress Note ---
Assessment and Plan 61 y/o with acute respiratory failure secondary to COVID 19 05/02/22: HD really hepled with volume removal. Should get HD again tomorrow. Same recs regarding proning. Patient not on O2 at home so will need walk test prior to discharge. 05/01/22: Continue steroids. Actemra ordered by ID. PRone if possible during the day and sleep prone at night. Needs volume removal with HD, based on vitals, BP should tolerate it. Guarded prognosis. 1. Dexamethasone as ordered 2. Agree with ID and use of actemra 3. If able to prone, suggest prone as tolerated during the day and sleep prone at night 4. Wean FiO2 and flow for sats >88% 5. HD per renal, need to keep daily net negative state if possible 6. Guarded prognosis. Subjective Date of service: 05/02/22 Interval history: Patient now down to 4 liters NC. Good sats. Had HD yesterday. 2.5 liters of fluid removed. Objective Vital Signs - 12hr 05/02/22 05/02/22 05/02/22 06:29 08:00 09:14 Temperature 98.6 F 99.1 F Pulse Rate 70 Respiratory 22 16 Rate Blood Pressure 173/62 169/88 O2 Sat by Pulse 95 98 Oximetry 05/02/22 05/02/22 05/02/22 09:19 09:36 09:39 Temperature Pulse Rate 76 75 Respiratory 21 Rate Blood Pressure 169/88 O2 Sat by Pulse 97 100 Oximetry 05/02/22 12:08 Temperature Pulse Rate Respiratory Rate Blood Pressure O2 Sat by Pulse 95 Oximetry CBC and BMP: 05/01/22 06:22 05/01/22 06:22 ABG, PT/INR, D-dimer: PT/INR, D-dimer PT 13.5 Sec. (12.2-14.9) 04/28/22 14:49 INR 0.91 (0.87-1.13) 04/28/22 14:49 D-Dimer 1200.26 ng/mlDDU (0-234) H 05/01/22 06:22 Abnormal lab findings: Abnormal Labs 04/28/22 04/28/22 04/28/22 14:49 14:49 14:49 RBC 3.08 L Hgb 9.6 L Hct MCV 99 H RDW 17.7 H Lymph % (Auto) Lymph # (Auto) Seg Neutrophils % Seg Neuts % (Manual) 78.0 H Lymphocytes % (Manual) 3.0 L Lymphocytes # (Manual) 0.3 L D-Dimer Sodium 133 L Carbon Dioxide 21 L BUN 39 H Creatinine 3.7 H Glucose Calcium 8.2 L Ferritin Lactate Dehydrogenase Troponin T 0.075 H C-Reactive Protein NT-Pro-B Natriuret Pep 19879 H Total Protein 5.6 L Albumin 2.8 L HDL Cholesterol 64 H Coronavirus (PCR) 04/29/22 04/29/22 04/29/22 08:04 08:04 08:04 RBC Hgb Hct MCV RDW Lymph % (Auto) Lymph # (Auto) Seg Neutrophils % Seg Neuts % (Manual) Lymphocytes % (Manual) Lymphocytes # (Manual) D-Dimer 1044.30 H Sodium Carbon Dioxide BUN 48 H Creatinine 4.0 H Glucose 147 H Calcium Ferritin 458.0 H Lactate Dehydrogenase Troponin T C-Reactive Protein 10.50 H NT-Pro-B Natriuret Pep Total Protein Albumin HDL Cholesterol Coronavirus (PCR) 04/30/22 04/30/22 04/30/22 07:21 07:21 10:00 RBC 2.83 L Hgb 8.8 L Hct 27.9 L MCV 98 H RDW 17.2 H Lymph % (Auto) Lymph # (Auto) Seg Neutrophils % Seg Neuts % (Manual) 93.0 H Lymphocytes % (Manual) 6.0 L Lymphocytes # (Manual) 0.5 L D-Dimer Sodium Carbon Dioxide 31 H BUN 29 H Creatinine 2.6 H Glucose Calcium 8.2 L Ferritin Lactate Dehydrogenase Troponin T C-Reactive Protein NT-Pro-B Natriuret Pep Total Protein Albumin HDL Cholesterol Coronavirus (PCR) Positive A 05/01/22 05/01/22 05/01/22 06:22 06:22 06:22 RBC 2.65 L Hgb 8.2 L Hct 25.9 L MCV 98 H RDW 16.7 H Lymph % (Auto) 5.9 L Lymph # (Auto) 0.3 L Seg Neutrophils % 89.9 H Seg Neuts % (Manual) Lymphocytes % (Manual) Lymphocytes # (Manual) D-Dimer 1200.26 H Sodium Carbon Dioxide BUN 50 H Creatinine 3.4 H Glucose Calcium 8.2 L Ferritin Lactate Dehydrogenase 211 H Troponin T C-Reactive Protein 2.10 H NT-Pro-B Natriuret Pep Total Protein Albumin HDL Cholesterol Coronavirus (PCR) 05/01/22 06:22 RBC Hgb Hct MCV RDW Lymph % (Auto) Lymph # (Auto) Seg Neutrophils % Seg Neuts % (Manual) Lymphocytes % (Manual) Lymphocytes # (Manual) D-Dimer Sodium Carbon Dioxide BUN Creatinine Glucose Calcium Ferritin 354.3 H Lactate Dehydrogenase Troponin T C-Reactive Protein NT-Pro-B Natriuret Pep Total Protein Albumin HDL Cholesterol Coronavirus (PCR)
--- NOTE | 2022-05-02 16:04 | Progress Note ---
Assessment and Plan This is a 61 year old woman who presents with dyspnea, COVID-19 # ESRD: continue HD // or prn, due tomorrow. S/p treatment yesterday, UF 2.5L - daily labs - renally dose meds - avoid nephrotoxins - renal diet - verbal consent obtained for HD # Anemia: last hemoglobin 9.6->8.8->8.2, restarted ESAs with HD TIW # HTN: UF as tolerated, aim net negative as able. BP stable # Secondary Hyperparathyroidism: continue home binders as needed, vitamin D analogs prn # COVID-19 Pneumonia, Respiratory Failure: improving, pulmonary/ID also following # CHF: note BNP 13K on admission, UF as tolerated Subjective Date of service: 05/02/22 Interval history: Chart, labs, vitals reviewed. Weaned off HFNC Objective - Exam Narrative Exam: No direct examination today due to COVID-19, need to limit PPE - Vital Signs Vital signs: Vital Signs - 12hr 05/02/22 05/02/22 05/02/22 06:29 08:00 09:14 Temperature 98.6 F 99.1 F Pulse Rate 70 Respiratory 22 16 Rate Blood Pressure 173/62 169/88 O2 Sat by Pulse 95 98 Oximetry 05/02/22 05/02/22 05/02/22 09:19 09:36 09:39 Temperature Pulse Rate 76 75 Respiratory 21 Rate Blood Pressure 169/88 O2 Sat by Pulse 97 100 Oximetry 05/02/22 12:08 Temperature Pulse Rate Respiratory Rate Blood Pressure O2 Sat by Pulse 95 Oximetry - Lab 05/01/22 06:22 05/01/22 06:22 Most recent lab results Calcium 8.2 mg/dL (8.4-10.2) L 05/01/22 06:22 Medications & Allergies - Medications Allergies/Adverse Reactions: Allergies NSAIDS (Non-Steroidal Anti-Inflamma Allergy (Verified 04/28/22 13:30) Rash Sulfa (Sulfonamide Antibiotics) Allergy (Verified 04/28/22 13:30) Rash Home Medications: Home Medications Medication Instructions Recorded Confirmed Last Taken Type Ascorbic Acid [Vitamin C] 500 mg PO DAILY 04/28/22 04/28/22 Unknown History Ferrous Sulfate [Ferrous Sulfate 324 mg PO DAILY 04/28/22 04/28/22 Unknown History 324 MG] Levothyroxine Sodium 200 mcg PO DAILY 04/28/22 04/28/22 Unknown History [Levothyroxine] Venlafaxine [Effexor 37.5mg tab] 37.5 mg PO QDAY 04/28/22 04/28/22 Unknown History carvediloL [Coreg] 12.5 mg PO BID 04/28/22 04/28/22 Unknown History sevelamer HCL [Sevelamer HCl] 800 mg PO TID 04/28/22 04/28/22 Unknown History Active Medications: Generic Name Dose Route Start Last Admin Trade Name Freq PRN Reason Stop Dose Admin Acetaminophen 650 mg 04/28/22 23:21 05/01/22 20:02 Acetaminophen 325 Mg Tab PO 650 mg Q4H PRN Administration Pain MILD(1-3)/Fever >100.5/KENDALL Albuterol 2.5 mg 04/28/22 23:21 Albuterol 2.5 Mg/3 Ml Nebu IH Q3HRT PRN Shortness Of Breath Ascorbic Acid 500 mg 04/29/22 10:00 05/02/22 09:20 Ascorbic Acid 500 Mg Tab PO Not Given DAILY TOSHIA Carvedilol 12.5 mg 04/29/22 10:00 05/02/22 09:19 Carvedilol 12.5 Mg Tab PO 12.5 mg BID TOSHIA Administration Dexamethasone 8 mg 04/29/22 10:00 05/02/22 09:19 Dexamethasone 4 Mg/Ml Vial IV 05/08/22 10:01 8 mg DAILY TOSHIA Administration Epoetin Ck-epbx 20,000 unit 05/01/22 14:10 05/01/22 17:20 Epoetin Ck-Epbx 20,000 Unit/1 Ml Vial IV 20,000 unit HOMER PRN Administration hemodialysis Famotidine 20 mg 04/29/22 10:00 05/02/22 09:19 Famotidine 20 Mg Tab PO 20 mg DAILY TOSHIA Administration Ferrous Sulfate 325 mg 04/29/22 10:00 05/02/22 09:19 Ferrous Sulfate 325 Mg Tab PO 325 mg DAILY TOSHIA Administration Guaifenesin 200 mg 04/29/22 18:23 05/02/22 13:40 Guaifenesin 100 Mg/5 Ml Oral Liqd PO 200 mg Q4H PRN Administration Cough Heparin Sodium (Porcine) 5,000 unit 04/29/22 06:00 05/02/22 13:38 Heparin 5,000 Unit/1 Ml Vial SUB-Q 5,000 unit Q8HR TOSHIA Administration Sodium Chloride 100 mls @ 999 mls/hr 04/29/22 10:30 Nacl 0.9% IV HOMER PRN Hypotension Levothyroxine Sodium 200 mcg 04/29/22 06:00 05/02/22 05:19 Levothyroxine 100 Mcg Tab PO 200 mcg QAM@0600 TOSHIA Administration Morphine Sulfate 2 mg 04/28/22 23:21 Morphine 2 Mg/1 Ml Inj IV Q4H PRN Pain, Moderate (4-6) Morphine Sulfate 4 mg 04/28/22 23:21 Morphine 4 Mg/1 Ml Inj IV Q4H PRN Pain , Severe (7-10) Ondansetron HCl 4 mg 04/28/22 23:21 Ondansetron 4 Mg/2 Ml Inj IV Q8H PRN Nausea And Vomiting Sevelamer Carbonate 800 mg 04/29/22 08:00 05/02/22 11:44 Sevelamer Carbonate 800 Mg Tab PO 800 mg TIDWM TOSHIA Administration Sodium Chloride 10 ml 04/29/22 10:00 05/02/22 09:20 Sodium Chloride 0.9% 10 Ml Flush Syringe IV 10 ml BID TOSHIA Administration Sodium Chloride 10 ml 04/28/22 23:21 Sodium Chloride 0.9% 10 Ml Flush Syringe IV PRN PRN LINE FLUSH
[2022-05-02] MEDS: ACETAMINOPHEN 325 MG TAB PO PRN (20:16)
[2022-05-03] MEDS: HEPARIN 5,000 UNIT/1 ML VIAL SUB-Q SCH ×3 (05:48→21:59)
[2022-05-03] MEDS: LEVOTHYROXINE 100 MCG TAB PO SCH (05:48)
[2022-05-03] MEDS: carvediloL 12.5 MG TAB PO SCH ×2 (09:05→22:00)
[2022-05-03] MEDS: FAMOTIDINE 20 MG TAB PO SCH (09:05)
[2022-05-03] MEDS: ASCORBIC ACID 500 MG TAB PO SCH (09:05)
[2022-05-03] MEDS: SEVELAMER CARBONATE 800 MG TAB PO SCH ×3 (09:05→17:02)
[2022-05-03] MEDS: FERROUS SULFATE 325 MG TAB PO SCH (09:05)
[2022-05-03] MEDS: dexAMETHasone 4 MG/ML VIAL IV SCH (09:05)
[2022-05-03] MEDS: ACETAMINOPHEN 325 MG TAB PO PRN (09:13)
[2022-05-03] MEDS: NIFEdipine XL 60 MG TAB PO SCH (09:50)
--- NOTE | 2022-05-03 12:55 | Progress Note ---
Assessment and Plan 61 y/o with acute respiratory failure secondary to COVID 19 05/03/22: Continue to wean FiO2 to off for sats > 88% as patient is not on oxy gen at home. Steroids. Prone daily and sleep prone at night if possible. Will continue to follow. 05/02/22: HD really hepled with volume removal. Should get HD again tomorrow. Same recs regarding proning. Patient not on O2 at home so will need walk test prior to discharge. 05/01/22: Continue steroids. Actemra ordered by ID. PRone if possible during the day and sleep prone at night. Needs volume removal with HD, based on vitals, BP should tolerate it. Guarded prognosis. 1. Dexamethasone as ordered 2. Agree with ID and use of actemra 3. If able to prone, suggest prone as tolerated during the day and sleep prone at night 4. Wean FiO2 and flow for sats >88% 5. HD per renal, need to keep daily net negative state if possible 6. Guarded prognosis. Subjective Date of service: 05/03/22 Interval history: No acute events. Down to 3 liters. Good sats. Objective Vital Signs - 12hr 05/03/22 05/03/22 05/03/22 02:26 06:29 10:14 Temperature 99.0 F Pulse Rate 74 Respiratory 18 Rate Blood Pressure 184/86 O2 Sat by Pulse 96 98 99 Oximetry CBC and BMP: 05/01/22 06:22 05/01/22 06:22 ABG, PT/INR, D-dimer: PT/INR, D-dimer PT 13.5 Sec. (12.2-14.9) 04/28/22 14:49 INR 0.91 (0.87-1.13) 04/28/22 14:49 D-Dimer 1200.26 ng/mlDDU (0-234) H 05/01/22 06:22 Abnormal lab findings: Abnormal Labs 04/28/22 04/28/22 04/28/22 14:49 14:49 14:49 RBC 3.08 L Hgb 9.6 L Hct MCV 99 H RDW 17.7 H Lymph % (Auto) Lymph # (Auto) Seg Neutrophils % Seg Neuts % (Manual) 78.0 H Lymphocytes % (Manual) 3.0 L Lymphocytes # (Manual) 0.3 L D-Dimer Sodium 133 L Carbon Dioxide 21 L BUN 39 H Creatinine 3.7 H Glucose Calcium 8.2 L Ferritin Lactate Dehydrogenase Troponin T 0.075 H C-Reactive Protein NT-Pro-B Natriuret Pep 69643 H Total Protein 5.6 L Albumin 2.8 L HDL Cholesterol 64 H Coronavirus (PCR) 04/29/22 04/29/22 04/29/22 08:04 08:04 08:04 RBC Hgb Hct MCV RDW Lymph % (Auto) Lymph # (Auto) Seg Neutrophils % Seg Neuts % (Manual) Lymphocytes % (Manual) Lymphocytes # (Manual) D-Dimer 1044.30 H Sodium Carbon Dioxide BUN 48 H Creatinine 4.0 H Glucose 147 H Calcium Ferritin 458.0 H Lactate Dehydrogenase Troponin T C-Reactive Protein 10.50 H NT-Pro-B Natriuret Pep Total Protein Albumin HDL Cholesterol Coronavirus (PCR) 04/30/22 04/30/22 04/30/22 07:21 07:21 10:00 RBC 2.83 L Hgb 8.8 L Hct 27.9 L MCV 98 H RDW 17.2 H Lymph % (Auto) Lymph # (Auto) Seg Neutrophils % Seg Neuts % (Manual) 93.0 H Lymphocytes % (Manual) 6.0 L Lymphocytes # (Manual) 0.5 L D-Dimer Sodium Carbon Dioxide 31 H BUN 29 H Creatinine 2.6 H Glucose Calcium 8.2 L Ferritin Lactate Dehydrogenase Troponin T C-Reactive Protein NT-Pro-B Natriuret Pep Total Protein Albumin HDL Cholesterol Coronavirus (PCR) Positive A 05/01/22 05/01/22 05/01/22 06:22 06:22 06:22 RBC 2.65 L Hgb 8.2 L Hct 25.9 L MCV 98 H RDW 16.7 H Lymph % (Auto) 5.9 L Lymph # (Auto) 0.3 L Seg Neutrophils % 89.9 H Seg Neuts % (Manual) Lymphocytes % (Manual) Lymphocytes # (Manual) D-Dimer 1200.26 H Sodium Carbon Dioxide BUN 50 H Creatinine 3.4 H Glucose Calcium 8.2 L Ferritin Lactate Dehydrogenase 211 H Troponin T C-Reactive Protein 2.10 H NT-Pro-B Natriuret Pep Total Protein Albumin HDL Cholesterol Coronavirus (PCR) 05/01/22 06:22 RBC Hgb Hct MCV RDW Lymph % (Auto) Lymph # (Auto) Seg Neutrophils % Seg Neuts % (Manual) Lymphocytes % (Manual) Lymphocytes # (Manual) D-Dimer Sodium Carbon Dioxide BUN Creatinine Glucose Calcium Ferritin 354.3 H Lactate Dehydrogenase Troponin T C-Reactive Protein NT-Pro-B Natriuret Pep Total Protein Albumin HDL Cholesterol Coronavirus (PCR)
--- NOTE | 2022-05-03 14:25 | Progress Note ---
Assessment and Plan This is a 61 year old woman who presents with dyspnea, COVID-19 # ESRD: continue HD // or prn, due today - daily labs - renally dose meds - avoid nephrotoxins - renal diet - verbal consent obtained for HD # Anemia: last hemoglobin 9.6->8.8->8.2, restarted ESAs with HD TIW # HTN: UF as tolerated, aim net negative as able. BP stable # Secondary Hyperparathyroidism: continue home binders as needed, vitamin D analogs prn # COVID-19 Pneumonia, Respiratory Failure: improving, pulmonary/ID also following # CHF: note BNP 13K on admission, UF as tolerated Subjective Date of service: 05/03/22 Interval history: Chart, labs, vitals reviewed. Weaned off HFNC Objective - Exam Narrative Exam: No direct examination today due to COVID-19, need to limit PPE - Vital Signs Vital signs: Vital Signs - 12hr 05/03/22 05/03/22 05/03/22 02:26 06:29 10:14 Temperature 99.0 F Pulse Rate 74 Respiratory 18 Rate Blood Pressure 184/86 O2 Sat by Pulse 96 98 99 Oximetry - Lab 05/01/22 06:22 05/01/22 06:22 Most recent lab results Calcium 8.2 mg/dL (8.4-10.2) L 05/01/22 06:22 Medications & Allergies - Medications Allergies/Adverse Reactions: Allergies NSAIDS (Non-Steroidal Anti-Inflamma Allergy (Verified 04/28/22 13:30) Rash Sulfa (Sulfonamide Antibiotics) Allergy (Verified 04/28/22 13:30) Rash Home Medications: Home Medications Medication Instructions Recorded Confirmed Last Taken Type Ascorbic Acid [Vitamin C] 500 mg PO DAILY 04/28/22 04/28/22 Unknown History Ferrous Sulfate [Ferrous Sulfate 324 mg PO DAILY 04/28/22 04/28/22 Unknown History 324 MG] Levothyroxine Sodium 200 mcg PO DAILY 04/28/22 04/28/22 Unknown History [Levothyroxine] Venlafaxine [Effexor 37.5mg tab] 37.5 mg PO QDAY 04/28/22 04/28/22 Unknown History carvediloL [Coreg] 12.5 mg PO BID 04/28/22 04/28/22 Unknown History sevelamer HCL [Sevelamer HCl] 800 mg PO TID 04/28/22 04/28/22 Unknown History Active Medications: Generic Name Dose Route Start Last Admin Trade Name Freq PRN Reason Stop Dose Admin Acetaminophen 650 mg 04/28/22 23:21 05/03/22 09:13 Acetaminophen 325 Mg Tab PO 650 mg Q4H PRN Administration Pain MILD(1-3)/Fever >100.5/KENDALL Albuterol 2.5 mg 04/28/22 23:21 Albuterol 2.5 Mg/3 Ml Nebu IH Q3HRT PRN Shortness Of Breath Ascorbic Acid 500 mg 04/29/22 10:00 05/03/22 09:05 Ascorbic Acid 500 Mg Tab PO 500 mg DAILY TOSHIA Administration Carvedilol 12.5 mg 04/29/22 10:00 05/03/22 09:05 Carvedilol 12.5 Mg Tab PO 12.5 mg BID TOSHIA Administration Dexamethasone 8 mg 04/29/22 10:00 05/03/22 09:05 Dexamethasone 4 Mg/Ml Vial IV 05/08/22 10:01 8 mg DAILY TOSHIA Administration Epoetin Ck-epbx 20,000 unit 05/01/22 14:10 05/01/22 17:20 Epoetin Ck-Epbx 20,000 Unit/1 Ml Vial IV 20,000 unit HOMER PRN Administration hemodialysis Famotidine 20 mg 04/29/22 10:00 05/03/22 09:05 Famotidine 20 Mg Tab PO 20 mg DAILY TOSHIA Administration Ferrous Sulfate 325 mg 04/29/22 10:00 05/03/22 09:05 Ferrous Sulfate 325 Mg Tab PO 325 mg DAILY TOSHIA Administration Guaifenesin 200 mg 04/29/22 18:23 05/02/22 13:40 Guaifenesin 100 Mg/5 Ml Oral Liqd PO 200 mg Q4H PRN Administration Cough Heparin Sodium (Porcine) 5,000 unit 04/29/22 06:00 05/03/22 05:48 Heparin 5,000 Unit/1 Ml Vial SUB-Q 5,000 unit Q8HR TOSHIA Administration Sodium Chloride 100 mls @ 999 mls/hr 04/29/22 10:30 Nacl 0.9% IV HOMER PRN Hypotension Levothyroxine Sodium 200 mcg 04/29/22 06:00 05/03/22 05:48 Levothyroxine 100 Mcg Tab PO 200 mcg QAM@0600 TOSHIA Administration Morphine Sulfate 2 mg 04/28/22 23:21 Morphine 2 Mg/1 Ml Inj IV Q4H PRN Pain, Moderate (4-6) Morphine Sulfate 4 mg 04/28/22 23:21 Morphine 4 Mg/1 Ml Inj IV Q4H PRN Pain , Severe (7-10) Nifedipine 60 mg 05/03/22 10:00 05/03/22 09:50 Nifedipine Xl 60 Mg Tab PO 60 mg Q12HR TOSHIA Administration Ondansetron HCl 4 mg 04/28/22 23:21 Ondansetron 4 Mg/2 Ml Inj IV Q8H PRN Nausea And Vomiting Sevelamer Carbonate 800 mg 04/29/22 08:00 05/03/22 11:15 Sevelamer Carbonate 800 Mg Tab PO 800 mg TIDWM TOSHIA Administration Sodium Chloride 10 ml 04/29/22 10:00 05/03/22 09:05 Sodium Chloride 0.9% 10 Ml Flush Syringe IV 10 ml BID TOSHIA Administration Sodium Chloride 10 ml 04/28/22 23:21 Sodium Chloride 0.9% 10 Ml Flush Syringe IV PRN PRN LINE FLUSH
[2022-05-03] MEDS: guaiFENesin 100 MG/5 ML ORAL LIQD PO PRN (19:25)
[2022-05-04] MEDS: LEVOTHYROXINE 100 MCG TAB PO SCH (06:29)
[2022-05-04] MEDS: guaiFENesin 100 MG/5 ML ORAL LIQD PO PRN ×2 (06:30→20:27)
[2022-05-04] MEDS: HEPARIN 5,000 UNIT/1 ML VIAL SUB-Q SCH ×3 (06:30→22:27)
[2022-05-04] MEDS: NIFEdipine XL 60 MG TAB PO SCH ×3 (06:54→22:28)
--- NOTE | 2022-05-04 07:29 | Progress Note ---
Assessment and Plan Assessment and plan: #COVID-19 pneumonia #Acute hypoxic respiratory failure-improving - etiology: Secondary to COVID-19 pneumonia + possible acute heart failure - baseline oxygen requirements: Room air - supplemental oxygen: 3L nasal cannula - Continue protocol: continue pulse oximetry, wean oxygen as tolerated, dexamethasone 8 mg daily x10 days, azithromycin 250 mg daily x5 days (completes on 05/02/2022), airborne and droplet precautions -Infectious disease consulted; appreciate recs. Patient not currently candidate for remdesivir given renal function. Pulmonology consulted; appreciate recs - continue to monitor #Possible acute heart failure-ruled out - Continue CHF exacerbation protocol: Telemetry, Strict I/O, monitor urine output every shift, daily weights, afterload reduction, low-sodium diet, and fluid restriction of approximately 1.5 mL/day, IV Lasix 40 mg twice daily - Supplemental oxygen: High flow nasal cannula 10 L / 70% FiO2 - ProBNP on admission: 13,672 - TTE (04/28/2022) revealing EF 55-60%, normal-sized LV, normal LV systolic function, mild concentric LVH with mild diastolic dysfunction, and RVSP is 41 mmHg. - Continue to monitor #Elevated D-dimer D-dimer 1044 Unremarkable bilateral venous Dopplers to evaluate for possible DVT. Continue to monitor. #ESRD on hemodialysis -Access: Permacath in right upper chest -Outpatient schedule: Unknown -HD center: N/A -Nephrology consulted; appreciate recs. -Renally dose medications and avoid nephrotoxic drugs. Renal diet. #Macrocytic anemia Hemoglobin 8.8 Transfuse if hemoglobin <7 or patient becomes symptomatic. Continue to monitor. #Hypothyroidism Continue home levothyroxine 200 mcg daily #Mild protein caloric malnutrition Albumin 2.5 Continue dietary supplementation #Advanced care planning -Disease education conducted, care plan discussed, diagnoses discussed, prognosis discussed, and patient acknowledges understanding with care plan -Time: +30 min #Discharge planning - Patient is pending further respiratory improvement. - Case management has been made aware. - Discharge is tentatively 24-48 hours Disposition Plan: Continue medical management Total Time Spent with Patient (Minutes): 45 min History Interval history: No acute events overnight. Hospitalist Physical - Constitutional Vitals: Temp Pulse Resp BP Pulse Ox 98.1 F 74 17 108/72 96 05/04/22 06:28 05/04/22 06:28 05/04/22 06:28 05/04/22 06:28 05/04/22 06:28 General appearance: Present: no acute distress, well-nourished - EENT Eyes: Present: PERRL, EOM intact ENT: hearing intact, clear oral mucosa, dentition normal - Neck Neck: Present: supple, normal ROM, other (permacath in upper R chest) - Respiratory Respiratory effort: normal Respiratory: bilateral: diminished (on 3L nasal cannula) - Cardiovascular Rhythm: regular Heart Sounds: Present: S1 & S2 - Extremities Extremities: no ischemia, pulses intact, pulses symmetrical, No edema, normal temperature, normal color Peripheral Pulses: within normal limits - Abdominal General gastrointestinal: soft, non-tender, non-distended, normal bowel sounds - Integumentary Integumentary: Present: clear, warm, dry - Psychiatric Psychiatric: appropriate mood/affect, intact judgment & insight, memory intact, cooperative - Neurologic Neurologic: CNII-XII intact, moves all extremities - Allied Health Allied health notes reviewed: nursing HEART Score - HEART Score Troponin: Troponin T 0.075 ng/mL (0.00-0.029) H 04/28/22 14:49 Results - Labs CBC & Chem 7: 05/01/22 06:22 05/01/22 06:22 Labs: Laboratory Last Values WBC 5.3 K/mm3 (4.5-11.0) 05/01/22 06:22 RBC 2.65 M/mm3 (3.65-5.03) L 05/01/22 06:22 Hgb 8.2 gm/dl (10.1-14.3) L 05/01/22 06:22 Hct 25.9 % (30.3-42.9) L 05/01/22 06:22 MCV 98 fl (79-97) H 05/01/22 06:22 MCH 31 pg (28-32) 05/01/22 06:22 MCHC 32 % (30-34) 05/01/22 06:22 RDW 16.7 % (13.2-15.2) H 05/01/22 06:22 Plt Count 172 K/mm3 (140-440) 05/01/22 06:22 Lymph % (Auto) 5.9 % (13.4-35.0) L 05/01/22 06:22 [place] % (Auto) 4.1 % (0.0-7.3) 05/01/22 06:22 Eos % (Auto) 0.0 % (0.0-4.3) 05/01/22 06:22 Baso % (Auto) 0.1 % (0.0-1.8) 05/01/22 06:22 Lymph # (Auto) 0.3 K/mm3 (1.2-5.4) L 05/01/22 06:22 [place] # (Auto) 0.2 K/mm3 (0.0-0.8) 05/01/22 06:22 Eos # (Auto) 0.0 K/mm3 (0.0-0.4) 05/01/22 06:22 Baso # (Auto) 0.0 K/mm3 (0.0-0.1) 05/01/22 06:22 Add Manual Diff Complete 04/30/22 07:21 Total Counted 100 04/30/22 07:21 Seg Neutrophils % 89.9 % (40.0-70.0) H 05/01/22 06:22 Seg Neuts % (Manual) 93.0 % (40.0-70.0) H 04/30/22 07:21 Band Neutrophils % 0 % 04/30/22 07:21 Lymphocytes % (Manual) 6.0 % (13.4-35.0) L 04/30/22 07:21 Reactive Lymphs % (Man) 0 % 04/30/22 07:21 Monocytes % (Manual) 0 % (0.0-7.3) 04/30/22 07:21 Eosinophils % (Manual) 0 % (0.0-4.3) 04/30/22 07:21 Basophils % (Manual) 0 % (0.0-1.8) 04/30/22 07:21 Metamyelocytes % 0 % 04/30/22 07:21 Myelocytes % 1.0 % 04/30/22 07:21 Promyelocytes % 0 % 04/30/22 07:21 Blast Cells % 0 % 04/30/22 07:21 Nucleated RBC % Not Reportable 04/30/22 07:21 Seg Neutrophils # 4.8 K/mm3 (1.8-7.7) 05/01/22 06:22 Seg Neutrophils # Man 7.4 K/mm3 (1.8-7.7) 04/30/22 07:21 Band Neutrophils # 0.0 K/mm3 04/30/22 07:21 Lymphocytes # (Manual) 0.5 K/mm3 (1.2-5.4) L 04/30/22 07:21 Abs React Lymphs (Man) 0.0 K/mm3 04/30/22 07:21 Monocytes # (Manual) 0.0 K/mm3 (0.0-0.8) 04/30/22 07:21 Eosinophils # (Manual) 0.0 K/mm3 (0.0-0.4) 04/30/22 07:21 Basophils # (Manual) 0.0 K/mm3 (0.0-0.1) 04/30/22 07:21 Metamyelocytes # 0.0 K/mm3 04/30/22 07:21 Myelocytes # 0.1 K/mm3 04/30/22 07:21 Promyelocytes # 0.0 K/mm3 04/30/22 07:21 Blast Cells # 0.0 K/mm3 04/30/22 07:21 WBC Morphology Not Reportable 04/30/22 07:21 Hypersegmented Neuts Not Reportable 04/30/22 07:21 Hyposegmented Neuts Not Reportable 04/30/22 07:21 Hypogranular Neuts Not Reportable 04/30/22 07:21 Smudge Cells Not Reportable 04/30/22 07:21 Toxic Granulation Not Reportable 04/30/22 07:21 Toxic Vacuolation Not Reportable 04/30/22 07:21 Dohle Bodies Not Reportable 04/30/22 07:21 Pelger-Huet Anomaly Not Reportable 04/30/22 07:21 Kristi Rods Not Reportable 04/30/22 07:21 Platelet Estimate Consistent w auto 04/30/22 07:21 Clumped Platelets Not Reportable 04/30/22 07:21 Plt Clumps, EDTA Not Reportable 04/30/22 07:21 Large Platelets Not Reportable 04/30/22 07:21 Giant Platelets Not Reportable 04/30/22 07:21 Platelet Satelliting Not Reportable 04/30/22 07:21 Plt Morphology Comment Not Reportable 04/30/22 07:21 RBC Morphology Not Reportable 04/30/22 07:21 Dimorphic RBCs Not Reportable 04/30/22 07:21 Polychromasia Not Reportable 04/30/22 07:21 Hypochromasia Not Reportable 04/30/22 07:21 Poikilocytosis Not Reportable 04/30/22 07:21 Anisocytosis 1+ 04/30/22 07:21 Microcytosis Not Reportable 04/30/22 07:21 Macrocytosis Not Reportable 04/30/22 07:21 Spherocytes Not Reportable 04/30/22 07:21 Pappenheimer Bodies Not Reportable 04/30/22 07:21 Sickle Cells Not Reportable 04/30/22 07:21 Target Cells Not Reportable 04/30/22 07:21 Tear Drop Cells Not Reportable 04/30/22 07:21 Ovalocytes Not Reportable 04/30/22 07:21 Helmet Cells Not Reportable 04/30/22 07:21 Jett-Wagner Bodies Not Reportable 04/30/22 07:21 Alpha Rings Not Reportable 04/30/22 07:21 Herbie Cells Not Reportable 04/30/22 07:21 Bite Cells Not Reportable 04/30/22 07:21 Crenated Cell Not Reportable 04/30/22 07:21 Elliptocytes Not Reportable 04/30/22 07:21 Acanthocytes (Spur) Not Reportable 04/30/22 07:21 Rouleaux Not Reportable 04/30/22 07:21 Hemoglobin C Crystals Not Reportable 04/30/22 07:21 Schistocytes Not Reportable 04/30/22 07:21 Malaria parasites Not Reportable 04/30/22 07:21 Mayank Bodies Not Reportable 04/30/22 07:21 Hem Pathologist Commnt No 04/30/22 07:21 PT 13.5 Sec. (12.2-14.9) 04/28/22 14:49 INR 0.91 (0.87-1.13) 04/28/22 14:49 APTT 33.8 Sec. (24.2-36.6) 04/28/22 14:49 D-Dimer 1200.26 ng/mlDDU (0-234) H 05/01/22 06:22 Sodium 141 mmol/L (137-145) 05/01/22 06:22 Potassium 3.9 mmol/L (3.6-5.0) 05/01/22 06:22 Chloride 101.5 mmol/L (98-107) 05/01/22 06:22 Carbon Dioxide 30 mmol/L (22-30) 05/01/22 06:22 Anion Gap 13 mmol/L 05/01/22 06:22 BUN 50 mg/dL (7-17) H 05/01/22 06:22 Creatinine 3.4 mg/dL (0.6-1.2) H 05/01/22 06:22 Estimated GFR 14 ml/min 05/01/22 06:22 BUN/Creatinine Ratio 15 % 05/01/22 06:22 Glucose 99 mg/dL (65-100) 05/01/22 06:22 Calcium 8.2 mg/dL (8.4-10.2) L 05/01/22 06:22 Ferritin 354.3 ng/mL (10.0-200.0) H 05/01/22 06:22 Total Bilirubin 0.20 mg/dL (0.1-1.2) 04/28/22 14:49 AST 26 units/L (5-40) 04/28/22 14:49 ALT 14 units/L (7-56) 04/28/22 14:49 Alkaline Phosphatase 70 units/L (35-129) 04/28/22 14:49 Lactate Dehydrogenase 211 units/L (91-180) H 05/01/22 06:22 Troponin T 0.075 ng/mL (0.00-0.029) H 04/28/22 14:49 C-Reactive Protein 2.10 mg/dL (0.00-1.30) H 05/01/22 06:22 NT-Pro-B Natriuret Pep 56002 pg/mL (0-900) H 04/28/22 14:49 Total Protein 5.6 g/dL (6.3-8.2) L 04/28/22 14:49 Albumin 2.8 g/dL (3.9-5) L 04/28/22 14:49 Albumin/Globulin Ratio 1.0 % 04/28/22 14:49 Triglycerides 128 mg/dL (2-149) 04/28/22 14:49 Cholesterol 154 mg/dL (50-199) 04/28/22 14:49 LDL Cholesterol Direct 63 mg/dL (50-130) 04/28/22 14:49 HDL Cholesterol 64 mg/dL (40-59) H 04/28/22 14:49 Cholesterol/HDL Ratio 2.40 % 04/28/22 14:49 Nasal Screen MRSA (PCR) Negative (Negative) 04/29/22 02:09 Coronavirus (PCR) Positive (Negative) A 04/30/22 10:00 Hepatitis A IgM Ab Non-reactive (NonReactive) 04/29/22 10:27 Hep Bs Antigen Non-reactive (Negative) 04/29/22 10:27 Hep B Core IgM Ab Non-reactive (NonReactive) 04/29/22 10:27 Hepatitis C Antibody Non-reactive (NonReactive) 04/29/22 10:27 Microbiology: Microbiology 04/28/22 16:49 Peripheral/Venous Blood Culture - Final NO GROWTH AFTER 5 DAYS 04/28/22 16:49 Peripheral/Venous Blood Culture - Final NO GROWTH AFTER 5 DAYS Pichardo/IV: Voiding Method External Female Catheter Active Medications - Current Medications Current Medications: Generic Name Dose Route Start Last Admin Trade Name Freq PRN Reason Stop Dose Admin Acetaminophen 650 mg 04/28/22 23:21 05/03/22 09:13 Acetaminophen 325 Mg Tab PO 650 mg Q4H PRN Administration Pain MILD(1-3)/Fever >100.5/KENDALL Albuterol 2.5 mg 04/28/22 23:21 Albuterol 2.5 Mg/3 Ml Nebu IH Q3HRT PRN Shortness Of Breath Ascorbic Acid 500 mg 04/29/22 10:00 05/03/22 09:05 Ascorbic Acid 500 Mg Tab PO 500 mg DAILY TOSHIA Administration Carvedilol 12.5 mg 04/29/22 10:00 05/03/22 22:00 Carvedilol 12.5 Mg Tab PO 12.5 mg BID TOSHIA Administration Dexamethasone 8 mg 04/29/22 10:00 05/03/22 09:05 Dexamethasone 4 Mg/Ml Vial IV 05/08/22 10:01 8 mg DAILY TOSHIA Administration Epoetin Ck-epbx 20,000 unit 05/01/22 14:10 05/01/22 17:20 Epoetin Ck-Epbx 20,000 Unit/1 Ml Vial IV 20,000 unit HOMER PRN Administration hemodialysis Famotidine 20 mg 04/29/22 10:00 05/03/22 09:05 Famotidine 20 Mg Tab PO 20 mg DAILY TOSHIA Administration Ferrous Sulfate 325 mg 04/29/22 10:00 05/03/22 09:05 Ferrous Sulfate 325 Mg Tab PO 325 mg DAILY TOSHIA Administration Guaifenesin 200 mg 04/29/22 18:23 05/04/22 06:30 Guaifenesin 100 Mg/5 Ml Oral Liqd PO 200 mg Q4H PRN Administration Cough Heparin Sodium (Porcine) 5,000 unit 04/29/22 06:00 05/04/22 06:30 Heparin 5,000 Unit/1 Ml Vial SUB-Q 5,000 unit Q8HR TOSHIA Administration Sodium Chloride 100 mls @ 999 mls/hr 04/29/22 10:30 Nacl 0.9% IV HOMER PRN Hypotension Levothyroxine Sodium 200 mcg 04/29/22 06:00 05/04/22 06:29 Levothyroxine 100 Mcg Tab PO 200 mcg QAM@0600 TOSHIA Administration Morphine Sulfate 2 mg 04/28/22 23:21 Morphine 2 Mg/1 Ml Inj IV Q4H PRN Pain, Moderate (4-6) Morphine Sulfate 4 mg 04/28/22 23:21 Morphine 4 Mg/1 Ml Inj IV Q4H PRN Pain , Severe (7-10) Nifedipine 60 mg 05/03/22 10:00 05/04/22 06:54 Nifedipine Xl 60 Mg Tab PO Not Given Q12HR [facility] Ondansetron HCl 4 mg 04/28/22 23:21 Ondansetron 4 Mg/2 Ml Inj IV Q8H PRN Nausea And Vomiting Sevelamer Carbonate 800 mg 04/29/22 08:00 05/03/22 17:02 Sevelamer Carbonate 800 Mg Tab PO 800 mg TIDWM TOSHIA Administration Sodium Chloride 10 ml 04/29/22 10:00 05/03/22 22:04 Sodium Chloride 0.9% 10 Ml Flush Syringe IV 10 ml BID TOSHIA Administration Sodium Chloride 10 ml 04/28/22 23:21 Sodium Chloride 0.9% 10 Ml Flush Syringe IV PRN PRN LINE FLUSH Nutrition/Malnutrition Assess - Dietary Evaluation Nutrition/Malnutrition Findings: Nutrition Notes Start: 04/29/22 12:04 Freq: Status: Active Protocol: Document 04/29/22 12:04 ASHISH (Rec: 04/29/22 12:32 ASHISH [email or web address]) Nutrition Notes Need for Assessment generated from: MD Order Initial or Follow up Assessment Current Diagnosis CKD (stage V CKD),Hypertension ,Respiratory Failure Other Pertinent Diagnosis ESRD+HD, COVID-19/Pneumonia, CHF, Hypothyroidism. Current Diet Cardiac Diet (since B 04/28), Cardiac -Renal- Diet+D Suppl ( from D 04/29). Labs/Tests 04/29: BUN 48, Crea 4.0, Glu 147. Pertinent Medications 04/29: Vit C, FeSO4, Levothyroxine, Renvela, others nutritionally unremarkable. Height 5 ft 3 in Weight 72.575 kg [place] Body Weight (kg) 52.27 BMI 28.3 Intake Prior to Admission Good Weight change and time frame Pt denies having loss body weight [employer]. Weight Status Overweight Subjective/Other Information RD consult for dietary supplementation assessment. No reports available on Pt's PO intake of meals at the time , will assess at F/U. I will prescribe dietary supplements to compensate for possible poor or insufficient PO intake of meals during LOS. I will recommend renal restriction to current diet, to support Pt's ESRD condition during LOS. Pt is on High Flow Nasal Cannula, O2 saturation @ 91%, according to Physical Assessment History notes. Pt has missing teeth, according to Physical Assessment History notes. Pt is a SNF resident, according to Progress notes. Percent of energy/protein needs met: Prescribed Cardiac -Renal- Diet provides for energy/ protein needs (2,230 Kcal/85 g ) during LOS; additionally, Dietary Supplements will compensate for possible poor or insufficient PO intake of meals with 850 Kcal and 38 g of protein. Burn Absent Trauma Absent GI Symptoms None Food Allergy No Skin Integrity/Comment Assessment WNL. Minimum of two criteria No Fluid Accumulation N/A Reduced Senior Sales Representative Strength N/A (non-severe) Protein-Calorie Malnutrition N\A #2 Nutrition Diagnosis Altered nutrition-related laboratory values Etiology CKD V, ESRD. As Evidenced by Signs and Symptoms 04/29: BUN 48, Crea 4.0, Glu 147. #1 Nutrition Diagnosis Predicted suboptimal energy intake Etiology Ongoing and concomitant chronic metabolic conditions. As Evidenced by Signs and Symptoms No reports available on Pt's PO intake of meals at the time , MD request for dietary supplements. Is patient on ventilator? No Is Patient Ambulatory and/or Out of Bed No REE-([facility]-confined to bed) 1528.644 Kcal/Kg value to use for calculation 19 Approximate Energy Requirements Using 1379 kcal/Kg Calculation Used for Recommendations Kcal/kg Additional Notes Protein: >1.2 g/Kg ABW; >88 g/ day. Fluids: 1 ml/Kcal, or as per MD. Nutrition Intervention Change Diet Order: Add Renal restriction to Cardiac Diet, and continue as tolerated. Add Supplement/Snack (indicate name/kcal Start 8 fl oz Nepro w/ /protein ) CARBSTEADY; BID Provides kCal: 850 Provides Protein (gm) 38 Goal #1 Compensate, through dietary supplementation, for possible poor or insufficient PO intake of meals during LOS. Goal #2 Help reach and maintain acceptable chemistry lab values during LOS. Goal #3 Adjust the dietary intervention to better serve Pt's needs and clinical conditions during LOS. Follow-Up By: 05/06/22 Additional Comments Continue monitoring food tolerance, %PO intake of meals , dietary supplements, and BM.
[2022-05-04] MEDS: ASCORBIC ACID 500 MG TAB PO SCH (09:38)
[2022-05-04] MEDS: SEVELAMER CARBONATE 800 MG TAB PO SCH ×3 (09:38→17:24)
[2022-05-04] MEDS: carvediloL 12.5 MG TAB PO SCH ×2 (09:38→22:27)
[2022-05-04] MEDS: dexAMETHasone 4 MG/ML VIAL IV SCH (09:38)
[2022-05-04] MEDS: FAMOTIDINE 20 MG TAB PO SCH (09:38)
[2022-05-04] MEDS: FERROUS SULFATE 325 MG TAB PO SCH (09:39)
[2022-05-04] MEDS: ACETAMINOPHEN 325 MG TAB PO PRN ×2 (09:51→20:27)
--- NOTE | 2022-05-04 14:19 | Progress Note ---
Assessment and Plan 61 y/o with acute respiratory failure secondary to COVID 19 05/04/22: Wean FiO2 to off. Steroids for 10 days. Prone daily and sleep prone. 05/03/22: Continue to wean FiO2 to off for sats > 88% as patient is not on oxygen at home. Steroids. Prone daily and sleep prone at night if possible. Will continue to follow. 05/02/22: HD really hepled with volume removal. Should get HD again tomorrow. Same recs regarding proning. Patient not on O2 at home so will need walk test prior to discharge. 05/01/22: Continue steroids. Actemra ordered by ID. PRone if possible during the day and sleep prone at night. Needs volume removal with HD, based on vitals, BP should tolerate it. Guarded prognosis. 1. Dexamethasone as ordered 2. Agree with ID and use of actemra 3. If able to prone, suggest prone as tolerated during the day and sleep prone at night 4. Wean FiO2 and flow for sats >88% 5. HD per renal, need to keep daily net negative state if possible 6. Guarded prognosis. Subjective Date of service: 05/04/22 Interval history: Down to 2 liters Objective Vital Signs - 12hr 05/04/22 05/04/22 05/04/22 05:00 06:28 10:00 Temperature 98.1 F Pulse Rate 74 Respiratory 17 Rate Blood Pressure 108/72 [Left] O2 Sat by Pulse 97 96 100 Oximetry CBC and BMP: 05/01/22 06:22 05/01/22 06:22 ABG, PT/INR, D-dimer: PT/INR, D-dimer PT 13.5 Sec. (12.2-14.9) 04/28/22 14:49 INR 0.91 (0.87-1.13) 04/28/22 14:49 D-Dimer 1200.26 ng/mlDDU (0-234) H 05/01/22 06:22 Abnormal lab findings: Abnormal Labs 04/28/22 04/28/22 04/28/22 14:49 14:49 14:49 RBC 3.08 L Hgb 9.6 L Hct MCV 99 H RDW 17.7 H Lymph % (Auto) Lymph # (Auto) Seg Neutrophils % Seg Neuts % (Manual) 78.0 H Lymphocytes % (Manual) 3.0 L Lymphocytes # (Manual) 0.3 L D-Dimer Sodium 133 L Carbon Dioxide 21 L BUN 39 H Creatinine 3.7 H Glucose Calcium 8.2 L Ferritin Lactate Dehydrogenase Troponin T 0.075 H C-Reactive Protein NT-Pro-B Natriuret Pep 12466 H Total Protein 5.6 L Albumin 2.8 L HDL Cholesterol 64 H Coronavirus (PCR) 04/29/22 04/29/22 04/29/22 08:04 08:04 08:04 RBC Hgb Hct MCV RDW Lymph % (Auto) Lymph # (Auto) Seg Neutrophils % Seg Neuts % (Manual) Lymphocytes % (Manual) Lymphocytes # (Manual) D-Dimer 1044.30 H Sodium Carbon Dioxide BUN 48 H Creatinine 4.0 H Glucose 147 H Calcium Ferritin 458.0 H Lactate Dehydrogenase Troponin T C-Reactive Protein 10.50 H NT-Pro-B Natriuret Pep Total Protein Albumin HDL Cholesterol Coronavirus (PCR) 04/30/22 04/30/22 04/30/22 07:21 07:21 10:00 RBC 2.83 L Hgb 8.8 L Hct 27.9 L MCV 98 H RDW 17.2 H Lymph % (Auto) Lymph # (Auto) Seg Neutrophils % Seg Neuts % (Manual) 93.0 H Lymphocytes % (Manual) 6.0 L Lymphocytes # (Manual) 0.5 L D-Dimer Sodium Carbon Dioxide 31 H BUN 29 H Creatinine 2.6 H Glucose Calcium 8.2 L Ferritin Lactate Dehydrogenase Troponin T C-Reactive Protein NT-Pro-B Natriuret Pep Total Protein Albumin HDL Cholesterol Coronavirus (PCR) Positive A 05/01/22 05/01/22 05/01/22 06:22 06:22 06:22 RBC 2.65 L Hgb 8.2 L Hct 25.9 L MCV 98 H RDW 16.7 H Lymph % (Auto) 5.9 L Lymph # (Auto) 0.3 L Seg Neutrophils % 89.9 H Seg Neuts % (Manual) Lymphocytes % (Manual) Lymphocytes # (Manual) D-Dimer 1200.26 H Sodium Carbon Dioxide BUN 50 H Creatinine 3.4 H Glucose Calcium 8.2 L Ferritin Lactate Dehydrogenase 211 H Troponin T C-Reactive Protein 2.10 H NT-Pro-B Natriuret Pep Total Protein Albumin HDL Cholesterol Coronavirus (PCR) 05/01/22 06:22 RBC Hgb Hct MCV RDW Lymph % (Auto) Lymph # (Auto) Seg Neutrophils % Seg Neuts % (Manual) Lymphocytes % (Manual) Lymphocytes # (Manual) D-Dimer Sodium Carbon Dioxide BUN Creatinine Glucose Calcium Ferritin 354.3 H Lactate Dehydrogenase Troponin T C-Reactive Protein NT-Pro-B Natriuret Pep Total Protein Albumin HDL Cholesterol Coronavirus (PCR)
--- NOTE | 2022-05-04 15:24 | Progress Note ---
Assessment and Plan This is a 61 year old woman who presents with dyspnea, COVID-19 # ESRD: continue HD // or prn, last HD yesterday - daily labs - renally dose meds - avoid nephrotoxins - renal diet - verbal consent obtained for HD # Anemia: last hemoglobin 9.6->8.8->8.2, restarted ESAs with HD TIW # HTN: UF as tolerated, aim net negative as able. BP stable # Secondary Hyperparathyroidism: continue home binders as needed, vitamin D analogs prn # COVID-19 Pneumonia, Respiratory Failure: improving, pulmonary/ID also following # CHF: note BNP 13K on admission, UF as tolerated Subjective Date of service: 05/04/22 Interval history: Chart, labs, vitals reviewed. Seen in room, resting on NC Objective - Exam Narrative Exam: No direct examination today due to COVID-19, need to limit PPE - Vital Signs Vital signs: Vital Signs - 12hr 05/04/22 05/04/22 05/04/22 05:00 06:28 10:00 Temperature 98.1 F Pulse Rate 74 Respiratory 17 Rate Blood Pressure 108/72 [Left] O2 Sat by Pulse 97 96 100 Oximetry - Lab 05/01/22 06:22 05/01/22 06:22 Most recent lab results Calcium 8.2 mg/dL (8.4-10.2) L 05/01/22 06:22 Medications & Allergies - Medications Allergies/Adverse Reactions: Allergies NSAIDS (Non-Steroidal Anti-Inflamma Allergy (Verified 04/28/22 13:30) Rash Sulfa (Sulfonamide Antibiotics) Allergy (Verified 04/28/22 13:30) Rash Home Medications: Home Medications Medication Instructions Recorded Confirmed Last Taken Type Ascorbic Acid [Vitamin C] 500 mg PO DAILY 04/28/22 04/28/22 Unknown History Ferrous Sulfate [Ferrous Sulfate 324 mg PO DAILY 04/28/22 04/28/22 Unknown History 324 MG] Levothyroxine Sodium 200 mcg PO DAILY 04/28/22 04/28/22 Unknown History [Levothyroxine] Venlafaxine [Effexor 37.5mg tab] 37.5 mg PO QDAY 04/28/22 04/28/22 Unknown H istory carvediloL [Coreg] 12.5 mg PO BID 04/28/22 04/28/22 Unknown History sevelamer HCL [Sevelamer HCl] 800 mg PO TID 04/28/22 04/28/22 Unknown History Active Medications: Generic Name Dose Route Start Last Admin Trade Name Freq PRN Reason Stop Dose Admin Acetaminophen 650 mg 04/28/22 23:21 05/04/22 09:51 Acetaminophen 325 Mg Tab PO 650 mg Q4H PRN Administration Pain MILD(1-3)/Fever >100.5/KENDALL Albuterol 2.5 mg 04/28/22 23:21 Albuterol 2.5 Mg/3 Ml Nebu IH Q3HRT PRN Shortness Of Breath Ascorbic Acid 500 mg 04/29/22 10:00 05/04/22 09:38 Ascorbic Acid 500 Mg Tab PO 500 mg DAILY TOSHIA Administration Carvedilol 12.5 mg 04/29/22 10:00 05/04/22 09:38 Carvedilol 12.5 Mg Tab PO 12.5 mg BID TOSHIA Administration Dexamethasone 8 mg 04/29/22 10:00 05/04/22 09:38 Dexamethasone 4 Mg/Ml Vial IV 05/08/22 10:01 8 mg DAILY TOSHIA Administration Epoetin Ck-epbx 20,000 unit 05/01/22 14:10 05/01/22 17:20 Epoetin Ck-Epbx 20,000 Unit/1 Ml Vial IV 20,000 unit HOEMR PRN Administration hemodialysis Famotidine 20 mg 04/29/22 10:00 05/04/22 09:38 Famotidine 20 Mg Tab PO 20 mg DAILY TOSHIA Administration Ferrous Sulfate 325 mg 04/29/22 10:00 05/04/22 09:39 Ferrous Sulfate 325 Mg Tab PO 325 mg DAILY TOSHIA Administration Guaifenesin 200 mg 04/29/22 18:23 05/04/22 06:30 Guaifenesin 100 Mg/5 Ml Oral Liqd PO 200 mg Q4H PRN Administration Cough Heparin Sodium (Porcine) 5,000 unit 04/29/22 06:00 05/04/22 15:19 Heparin 5,000 Unit/1 Ml Vial SUB-Q 5,000 unit Q8HR TOSHIA Administration Sodium Chloride 100 mls @ 999 mls/hr 04/29/22 10:30 Nacl 0.9% IV HOMER PRN Hypotension Levothyroxine Sodium 200 mcg 04/29/22 06:00 05/04/22 06:29 Levothyroxine 100 Mcg Tab PO 200 mcg QAM@0600 TOSHIA Administration Morphine Sulfate 2 mg 04/28/22 23:21 Morphine 2 Mg/1 Ml Inj IV Q4H PRN Pain, Moderate (4-6) Morphine Sulfate 4 mg 04/28/22 23:21 Morphine 4 Mg/1 Ml Inj IV Q4H PRN Pain , Severe (7-10) Nifedipine 60 mg 05/03/22 10:00 05/04/22 09:38 Nifedipine Xl 60 Mg Tab PO 60 mg Q12HR TOSHIA Administration Ondansetron HCl 4 mg 04/28/22 23:21 Ondansetron 4 Mg/2 Ml Inj IV Q8H PRN Nausea And Vomiting Sevelamer Carbonate 800 mg 04/29/22 08:00 05/04/22 12:57 Sevelamer Carbonate 800 Mg Tab PO 800 mg TIDWM TOSHIA Administration Sodium Chloride 10 ml 04/29/22 10:00 05/04/22 09:38 Sodium Chloride 0.9% 10 Ml Flush Syringe IV 10 ml BID TOSHIA Administration Sodium Chloride 10 ml 04/28/22 23:21 Sodium Chloride 0.9% 10 Ml Flush Syringe IV PRN PRN LINE FLUSH
[2022-05-05] MEDS: guaiFENesin 100 MG/5 ML ORAL LIQD PO PRN (06:11)
[2022-05-05] MEDS: HEPARIN 5,000 UNIT/1 ML VIAL SUB-Q SCH ×3 (06:11→21:27)
[2022-05-05] MEDS: LEVOTHYROXINE 100 MCG TAB PO SCH (06:11)
--- NOTE | 2022-05-05 09:27 | Progress Note ---
Assessment and Plan Cultures: SARS CoV2 PCR: Positive 04/28/2022 blood culture: no growth A/P: 61-year-old female with ESRD on HD, hypertension, hypothyroidism, long term resident was brought into the emergency room due to shortness of breath: #Bilateral pneumonia: Secondary to COVID-19. High CRP, requiring HFNC. Not a candidate for remdesivir. Got Actemra on 04/30/2022 along with steroids x 10 days. #Acute hypoxic respiratory failure: Requiring HFNC, improving. #ESRD on HD: Renally adjust antibiotics #CHF Recs: Complete remainder of steroid course Oxygen weaning as tolerated ID will sign off. Please call with questions Pauline Costello MD, F[facility] O: [phone] F: [phone] C: [phone] Subjective Date of service: 05/05/22 Interval history: No fever. Oxygen has been weaned to 2 L by nasal cannula. Objective - Exam Narrative Exam: Physical Exam (reviewed in chart to minimize risk of transmission) Constitutional: deferred Head, Ears, Nose: deferred Eyes: deferred Neck: deferred Oral: deferred Cardiovascular: deferred Respiratory: deferred GI: deferred Musculoskeletal: deferred Skin: deferred Hem/Lymphatic: deferred Psych: deferred Neurological: deferred - Constitutional Vitals: Vital Signs Temp Pulse Resp BP Pulse Ox 97.5 F L 74 16 131/77 96 05/05/22 04:49 05/05/22 04:49 05/05/22 04:49 05/05/22 04:49 05/05/22 05:00 Temperature -Last 24 Hours Temperature 97.5 F Temperature 99.4 F Temperature 98.3 F - Labs CBC & Chem 7: 05/01/22 06:22 05/01/22 06:22
[2022-05-05] MEDS: SEVELAMER CARBONATE 800 MG TAB PO SCH ×3 (09:36→17:37)
--- NOTE | 2022-05-05 10:37 | Progress Note ---
Assessment and Plan This is a 61 year old woman who presents with dyspnea, COVID-19 # ESRD: continue HD // - daily labs - renally dose meds - avoid nephrotoxins - renal diet - verbal consent obtained for HD # Anemia: ESAs with HD TIW # HTN: UF as tolerated, aim net negative as able. BP stable # Secondary Hyperparathyroidism: continue home binders as needed, vitamin D analogs prn # COVID-19 Pneumonia, Respiratory Failure: improving, pulmonary/ID also following # CHF: note BNP 13K on admission, UF as tolerated, goal net negative Subjective Date of service: 05/05/22 Principal diagnosis: Covid pneumonia Interval history: Now off oxygen. Vitals, labs, I/O reviewed. Objective - Exam Narrative Exam: Covid positive, exam deferred for PPE conservation, primary team exam reviewed. - Vital Signs Vital signs: Vital Signs - 12hr 05/05/22 05/05/22 04:49 05:00 Temperature 97.5 F L Pulse Rate 74 Respiratory 16 Rate Blood Pressure 131/77 O2 Sat by Pulse 96 96 Oximetry - Lab 05/01/22 06:22 05/01/22 06:22 Most recent lab results Calcium 8.2 mg/dL (8.4-10.2) L 05/01/22 06:22 Medications & Allergies - Medications Allergies/Adverse Reactions: Allergies NSAIDS (Non-Steroidal Anti-Inflamma Allergy (Verified 04/28/22 13:30) Rash Sulfa (Sulfonamide Antibiotics) Allergy (Verified 04/28/22 13:30) Rash Home Medications: Home Medications Medication Instructions Recorded Confirmed Last Taken Type Ascorbic Acid [Vitamin C] 500 mg PO DAILY 04/28/22 04/28/22 Unknown History Ferrous Sulfate [Ferrous Sulfate 324 mg PO DAILY 04/28/22 04/28/22 Unknown History 324 MG] Levothyroxine Sodium 200 mcg PO DAILY 04/28/22 04/28/22 Unknown History [Levothyroxine] Venlafaxine [Effexor 37.5mg tab] 37.5 mg PO QDAY 04/28/22 04/28/22 Unknown History carvediloL [Coreg] 12.5 mg PO BID 04/28/22 04/28/22 Unknown History sevelamer HCL [Sevelamer HCl] 800 mg PO TID 04/28/22 04/28/22 Unknown History Benzonatate [Tessalon Perles] 100 mg PO Q8HR PRN #30 cap 05/05/22 Unknown Rx NIFEdipine XL [Procardia Xl] 60 mg PO Q12HR #60 tablet 05/05/22 Unknown Rx dexAMETHasone [Decadron] 8 mg PO DAILY #3 tablet 05/05/22 Unknown Rx Active Medications: Generic Name Dose Route Start Last Admin Trade Name Freq PRN Reason Stop Dose Admin Acetaminophen 650 mg 04/28/22 23:21 05/04/22 20:27 Acetaminophen 325 Mg Tab PO 650 mg Q4H PRN Administration Pain MILD(1-3)/Fever >100.5/KENDALL Albuterol 2.5 mg 04/28/22 23:21 Albuterol 2.5 Mg/3 Ml Nebu IH Q3HRT PRN Shortness Of Breath Ascorbic Acid 500 mg 04/29/22 10:00 05/04/22 09:38 Ascorbic Acid 500 Mg Tab PO 500 mg DAILY TOSHIA Administration Carvedilol 12.5 mg 04/29/22 10:00 05/04/22 22:27 Carvedilol 12.5 Mg Tab PO 12.5 mg BID TOSHIA Administration Dexamethasone 8 mg 05/05/22 10:00 Dexamethasone 4 Mg Tab PO 05/07/22 10:01 DAILY TOSHIA Epoetin Ck-epbx 20,000 unit 05/01/22 14:10 05/01/22 17:20 Epoetin Ck-Epbx 20,000 Unit/1 Ml Vial IV 20,000 unit HOMER PRN Administration hemodialysis Famotidine 20 mg 04/29/22 10:00 05/04/22 09:38 Famotidine 20 Mg Tab PO 20 mg DAILY TOSHIA Administration Ferrous Sulfate 325 mg 04/29/22 10:00 05/04/22 09:39 Ferrous Sulfate 325 Mg Tab PO 325 mg DAILY TOSHIA Administration Guaifenesin 200 mg 04/29/22 18:23 05/05/22 06:11 Guaifenesin 100 Mg/5 Ml Oral Liqd PO 200 mg Q4H PRN Administration Cough Heparin Sodium (Porcine) 5,000 unit 04/29/22 06:00 05/05/22 06:11 Heparin 5,000 Unit/1 Ml Vial SUB-Q 5,000 unit Q8HR TOSHIA Administration Sodium Chloride 100 mls @ 999 mls/hr 04/29/22 10:30 Nacl 0.9% IV HOMER PRN Hypotension Levothyroxine Sodium 200 mcg 04/29/22 06:00 05/05/22 06:11 Levothyroxine 100 Mcg Tab PO 200 mcg QAM@0600 TOSHIA Administration Morphine Sulfate 2 mg 04/28/22 23:21 Morphine 2 Mg/1 Ml Inj IV Q4H PRN Pain, Moderate (4-6) Morphine Sulfate 4 mg 04/28/22 23:21 Morphine 4 Mg/1 Ml Inj IV Q4H PRN Pain , Severe (7-10) Nifedipine 60 mg 05/03/22 10:00 05/04/22 22:28 Nifedipine Xl 60 Mg Tab PO Not Given Q12HR TOSHIA Ondansetron HCl 4 mg 04/28/22 23:21 Ondansetron 4 Mg/2 Ml Inj IV Q8H PRN Nausea And Vomiting Sevelamer Carbonate 800 mg 04/29/22 08:00 05/04/22 17:24 Sevelamer Carbonate 800 Mg Tab PO 800 mg TIDWM TOSHIA Administration Sodium Chloride 10 ml 04/29/22 10:00 05/04/22 22:29 Sodium Chloride 0.9% 10 Ml Flush Syringe IV 10 ml BID TOSHIA Administration Sodium Chloride 10 ml 04/28/22 23:21 Sodium Chloride 0.9% 10 Ml Flush Syringe IV PRN PRN LINE FLUSH
[2022-05-05] MEDS: NIFEdipine XL 60 MG TAB PO SCH ×2 (10:38→21:27)
[2022-05-05] MEDS: ASCORBIC ACID 500 MG TAB PO SCH (10:38)
[2022-05-05] MEDS: FAMOTIDINE 20 MG TAB PO SCH (10:39)
[2022-05-05] MEDS: FERROUS SULFATE 325 MG TAB PO SCH (11:38)
[2022-05-05] MEDS: DEXAMETHASONE 4 MG TAB PO SCH (11:39)
[2022-05-05] MEDS: carvediloL 12.5 MG TAB PO SCH ×2 (11:40→21:27)
--- NOTE | 2022-05-05 12:17 | Discharge Summary ---
Providers - Providers Date of Admission: 04/28/22 22:37 Date of discharge: 05/05/22 Attending physician: JANINE PATEL MD 04/28/22 23:21 Consult to Physician [CONS] Routine Comment: Consulting Provider: FAYE FRANCO Physician Instructions: Reason For Exam: covid 04/29/22 09:42 Consult to Physician [CONS] Routine Comment: Consulting Provider: MAYI FRY Physician Instructions: Reason For Exam: ESRD management 04/29/22 12:42 Consult to Physician [CONS] Routine Comment: Consulting Provider: BJ INTERIANO Physician Instructions: Reason For Exam: HFNC management + COVID pneumonia Primary care physician: RAQUEL GAR Hospitalization Reason for admission: COVID-19 pneumonia, acute hypoxic respiratory failure Condition: Serious Pertinent studies: Reviewed. Procedures: None. Hospital course: Patient is a 61-year-old female past medical history of ESRD on hemodialysis, hypertension, hypothyroidism, and mild protein caloric malnutrition who presented to the ED with complaints of shortness of breath that had started approximately 2 days prior. The patient denied any chest pain, fever, chills, extended travel, or sick contacts. The patient did endorse that exertion worsens her dyspnea. Patient was placed on nonrebreather at the half-way prior to presentation, and it was there that she was found to be confirmed positive for COVID-19. In the ED, the patient was hemodynamically stable and s aturating 94% on room air. Patient's labs were relatively unremarkable. Patient was admitted for management of COVID-19 pneumonia with acute hypoxic respiratory failure. The patient at 1 point required high flow nasal cannula. She was started on daily steroids and azithromycin 250 mg daily x5 days. Pulmonology was consulted for further management. Nephrology was consulted for management of hemodialysis needs. Patient is since been weaned down to 2 L nasal cannula, the patient is hemodynamically stable. The patient is medically clear for discharge. Disposition: 01 HOME / SELF CARE / HOMELESS Final Discharge Diagnosis (Prints w/discharge instructions): COVID-19 pneumonia, acute hypoxic respiratory failure, possible acute heart failureruled out, elevated D-dimer, ESRD on hemodialysis, macrocytic anemia, hypothyroidism, mild protein caloric malnutrition Time spent for discharge: 45 min Core Measure Documentation - Palliative Care Palliative Care/ Comfort Measures: Not Applicable - Core Measures Any of the following diagnoses?: none Exam - Constitutional Vitals: Temp Pulse Resp BP Pulse Ox 97.5 F L 74 16 131/77 96 05/05/22 04:49 05/05/22 04:49 05/05/22 04:49 05/05/22 04:49 05/05/22 05:00 General appearance: Present: no acute distress, well-nourished - EENT Eyes: Present: PERRL, EOM intact ENT: hearing intact, clear oral mucosa - Neck Neck: Present: supple, normal ROM, other (Permacath in upper R chest) - Respiratory Respiratory effort: normal Respiratory: bilateral: diminished (on 2L nasal cannula) - Cardiovascular Rhythm: regular Heart Sounds: Present: S1 & S2 - Extremities Extremities: no ischemia, pulses intact, pulses symmetrical, No edema, normal temperature, normal color Peripheral Pulses: within normal limits - Abdominal General gastrointestinal: Present: soft, non-tender, non-distended, normal bowel sounds Female genitourinary: Present: deferred - Rectal Rectal Exam: deferred - Integumentary Integumentary: Present: clear, warm, dry - Musculoskeletal Musculoskeletal: strength equal bilaterally - Psychiatric Psychiatric: appropriate mood/affect, intact judgment & insight, memory intact, cooperative - Neurologic Neurologic: CNII-XII intact, moves all extremities - Allied Health Allied health notes reviewed: nursing Plan Activity: advance as tolerated Diet: low salt, diabetic Additional Instructions: Patient is a 61-year-old female past medical history of ESRD on hemodialysis, hypertension, hypothyroidism, and mild protein caloric malnutrition who presented to the ED with complaints of shortness of breath that had started approximately 2 days prior. The patient denied any chest pain, fever, chills, extended travel, or sick contacts. The patient did endorse that exertion worsens her dyspnea. Patient was placed on nonrebreather at the half-way prior to presentation, and it was there that she was found to be confirmed positive for COVID-19. In the ED, the patient was hemodynamically stable and saturating 94% on room air. Patient's labs were relatively unremarkable. Patient was admitted for management of COVID-19 pneumonia with acute hypoxic respiratory failure. The patient at 1 point required high flow nasal cannula. She was started on daily steroids and azithromycin 250 mg daily x5 days. Pulmonology was consulted for further management. Nephrology was consulted for management of hemodialysis needs. Patient is since been weaned down to 2 L nasal cannula, the patient is hemodynamically stable. The patient is medically clear for discharge. Care Plan Goals: Patient is medically cleared for discharge. Assessment: Patient is a 61-year-old female past medical history of ESRD on hemodialysis, hypertension, hypothyroidism, and mild protein caloric malnutrition who presented to the ED with complaints of shortness of breath that had started approximately 2 days prior. The patient denied any chest pain, fever, chills, extended travel, or sick contacts. The patient did endorse that exertion worsens her dyspnea. Patient was placed on nonrebreather at the half-way prior to presentation, and it was there that she was found to be confirmed positive for COVID-19. In the ED, the patient was hemodynamically stable and saturating 94% on room air. Patient's labs were relatively unremarkable. Patient was admitted for management of COVID-19 pneumonia with acute hypoxic respiratory failure. The patient at 1 point required high flow nasal cannula. She was started on daily steroids and azithromycin 250 mg daily x5 days. Pulmonology was consulted for further management. Nephrology was consulted for management of hemodialysis needs. Patient is since been weaned down to 2 L nasal cannula, the patient is hemodynamically stable. The patient is medically clear for discharge. Follow up with: RAQUEL GAR MD [Primary Care Provider] - 3-5 Days Prescriptions: dexAMETHasone [Decadron] 8 mg PO DAILY #3 tablet NIFEdipine XL [Procardia Xl] 60 mg PO Q12HR #60 tablet
--- NOTE | 2022-05-05 13:52 | Progress Note ---
Assessment and Plan 61 y/o with acute respiratory failure secondary to COVID 19 05/05/22: 10 days total of dex. Continue to prone at home. Suggested walk test prior to discharge to evaluate oxygen needs. 05/04/22: Wean FiO2 to off. Steroids for 10 days. Prone daily and sleep prone. 05/03/22: Continue to wean FiO2 to off for sats > 88% as patient is not on oxygen at home. Steroids. Prone daily and sleep prone at night if possible. Will continue to follow. 05/02/22: HD really hepled with volume removal. Should get HD again tomorrow. Same recs regarding proning. Patient not on O2 at home so will need walk test prior to discharge. 05/01/22: Continue steroids. Actemra ordered by ID. PRone if possible during the day and sleep prone at night. Needs volume removal with HD, based on vitals, BP should tolerate it. Guarded prognosis. 1. Dexamethasone as ordered 2. Agree with ID and use of actemra 3. If able to prone, suggest prone as tolerated during the day and sleep prone at night 4. Wean FiO2 and flow for sats >88% 5. HD per renal, need to keep daily net negative state if possible 6. Guarded prognosis. Subjective Date of service: 05/05/22 Interval history: Patient being discharged today. Objective Vital Signs - 12hr 05/05/22 05/05/22 05/05/22 04:49 05:00 10:00 Temperature 97.5 F L Pulse Rate 74 Respiratory 16 Rate Blood Pressure 131/77 O2 Sat by Pulse 96 96 99 Oximetry CBC and BMP: 05/01/22 06:22 05/01/22 06:22 ABG, PT/INR, D-dimer: PT/INR, D-dimer PT 13.5 Sec. (12.2-14.9) 04/28/22 14:49 INR 0.91 (0.87-1.13) 04/28/22 14:49 D-Dimer 1200.26 ng/mlDDU (0-234) H 05/01/22 06:22 Abnormal lab findings: Abnormal Labs 04/28/22 04/28/22 04/28/22 14:49 14:49 14:49 RBC 3.08 L Hgb 9.6 L Hct MCV 99 H RDW 17.7 H Lymph % (Auto) Lymph # (Auto) Seg Neutrophils % Seg Neuts % (Manual) 78.0 H Lymphocytes % (Manual) 3.0 L Lymphocytes # (Manual) 0.3 L D-Dimer Sodium 133 L Carbon Dioxide 21 L BUN 39 H Creatinine 3.7 H Glucose Calcium 8.2 L Ferritin Lactate Dehydrogenase Troponin T 0.075 H C-Reactive Protein NT-Pro-B Natriuret Pep 59032 H Total Protein 5.6 L Albumin 2.8 L HDL Cholesterol 64 H Coronavirus (PCR) SARS-CoV-2 (PCR) 04/29/22 04/29/22 04/29/22 08:04 08:04 08:04 RBC Hgb Hct MCV RDW Lymph % (Auto) Lymph # (Auto) Seg Neutrophils % Seg Neuts % (Manual) Lymphocytes % (Manual) Lymphocytes # (Manual) D-Dimer 1044.30 H Sodium Carbon Dioxide BUN 48 H Creatinine 4.0 H Glucose 147 H Calcium Ferritin 458.0 H Lactate Dehydrogenase Troponin T C-Reactive Protein 10.50 H NT-Pro-B Natriuret Pep Total Protein Albumin HDL Cholesterol Coronavirus (PCR) SARS-CoV-2 (PCR) 04/30/22 04/30/22 04/30/22 07:21 07:21 10:00 RBC 2.83 L Hgb 8.8 L Hct 27.9 L MCV 98 H RDW 17.2 H Lymph % (Auto) Lymph # (Auto) Seg Neutrophils % Seg Neuts % (Manual) 93.0 H Lymphocytes % (Manual) 6.0 L Lymphocytes # (Manual) 0.5 L D-Dimer Sodium Carbon Dioxide 31 H BUN 29 H Creatinine 2.6 H Glucose Calcium 8.2 L Ferritin Lactate Dehydrogenase Troponin T C-Reactive Protein NT-Pro-B Natriuret Pep Total Protein Albumin HDL Cholesterol Coronavirus (PCR) Positive A SARS-CoV-2 (PCR) 05/01/22 05/01/22 05/01/22 06:22 06:22 06:22 RBC 2.65 L Hgb 8.2 L Hct 25.9 L MCV 98 H RDW 16.7 H Lymph % (Auto) 5.9 L Lymph # (Auto) 0.3 L Seg Neutrophils % 89.9 H Seg Neuts % (Manual) Lymphocytes % (Manual) Lymphocytes # (Manual) D-Dimer 1200.26 H Sodium Carbon Dioxide BUN 50 H Creatinine 3.4 H Glucose Calcium 8.2 L Ferritin Lactate Dehydrogenase 211 H Troponin T C-Reactive Protein 2.10 H NT-Pro-B Natriuret Pep Total Protein Albumin HDL Cholesterol Coronavirus (PCR) SARS-CoV-2 (PCR) 05/01/22 05/05/22 06:22 12:40 RBC Hgb Hct MCV RDW Lymph % (Auto) Lymph # (Auto) Seg Neutrophils % Seg Neuts % (Manual) Lymphocytes % (Manual) Lymphocytes # (Manual) D-Dimer Sodium Carbon Dioxide BUN Creatinine Glucose Calcium Ferritin 354.3 H Lactate Dehydrogenase Troponin T C-Reactive Protein NT-Pro-B Natriuret Pep Total Protein Albumin HDL Cholesterol Coronavirus (PCR) SARS-CoV-2 (PCR) Positive A
[2022-05-05] MEDS: ACETAMINOPHEN 325 MG TAB PO PRN (17:44)
[2022-05-06] MEDS: LEVOTHYROXINE 100 MCG TAB PO SCH (05:36)
[2022-05-06] MEDS: HEPARIN 5,000 UNIT/1 ML VIAL SUB-Q SCH ×3 (05:36→21:23)
--- NOTE | 2022-05-06 09:21 | Progress Note ---
Assessment and Plan 61 y/o with acute respiratory failure secondary to COVID 19 05/06/22: Patient will be discharged today. Oxygen weaning and assessment for home can be determined at next facility. Steroids for 10 days. 05/05/22: 10 days total of dex. Continue to prone at home. Suggested walk test prior to discharge to evaluate oxygen needs. 05/04/22: Wean FiO2 to off. Steroids for 10 days. Prone daily and sleep prone. 05/03/22: Continue to wean FiO2 to off for sats > 88% as patient is not on oxygen at home. Steroids. Prone daily and sleep prone at night if possible. Will continue to follow. 05/02/22: HD really hepled with volume removal. Should get HD again tomorrow. Same recs regarding proning. Patient not on O2 at home so will need walk test prior to discharge. 05/01/22: Continue steroids. Actemra ordered by ID. PRone if possible during the day and sleep prone at night. Needs volume removal with HD, based on vitals, BP should tolerate it. Guarded prognosis. 1. Dexamethasone as ordered 2. Agree with ID and use of actemra 3. If able to prone, suggest prone as tolerated during the day and sleep prone at night 4. Wean FiO2 and flow for sats >88% 5. HD per renal, need to keep daily net negative state if possible 6. Guarded prognosis. Subjective Date of service: 05/06/22 Principal diagnosis: Covid pneumonia Interval history: Bed was not available yesterday. Pulm status is stable. Objective Vital Signs - 12hr 05/05/22 05/05/22 05/06/22 22:35 23:55 09:06 Temperature 97.5 F L Pulse Rate 81 Respiratory 18 Rate Blood Pressure 135/77 O2 Sat by Pulse 98 92 97 Oximetry CBC and BMP: 05/01/22 06:22 05/01/22 06:22 ABG, PT/INR, D-dimer: PT/INR, D-dimer PT 13.5 Sec. (12.2-14.9) 04/28/22 14:49 INR 0.91 (0.87-1.13) 04/28/22 14:49 D-Dimer 1200.26 ng/mlDDU (0-234) H 05/01/22 06:22 Abnormal lab findings: Abnormal Labs 04/28/22 04/28/22 04/28/22 14:49 14:49 14:49 RBC 3.08 L Hgb 9.6 L Hct MCV 99 H RDW 17.7 H Lymph % (Auto) Lymph # (Auto) Seg Neutrophils % Seg Neuts % (Manual) 78.0 H Lymphocytes % (Manual) 3.0 L Lymphocytes # (Manual) 0.3 L D-Dimer Sodium 133 L Carbon Dioxide 21 L BUN 39 H Creatinine 3.7 H Glucose Calcium 8.2 L Ferritin Lactate Dehydrogenase Troponin T 0.075 H C-Reactive Protein NT-Pro-B Natriuret Pep 47884 H Total Protein 5.6 L Albumin 2.8 L HDL Cholesterol 64 H Coronavirus (PCR) SARS-CoV-2 (PCR) 04/29/22 04/29/22 04/29/22 08:04 08:04 08:04 RBC Hgb Hct MCV RDW Lymph % (Auto) Lymph # (Auto) Seg Neutrophils % Seg Neuts % (Manual) Lymphocytes % (Manual) Lymphocytes # (Manual) D-Dimer 1044.30 H Sodium Carbon Dioxide BUN 48 H Creatinine 4.0 H Glucose 147 H Calcium Ferritin 458.0 H Lactate Dehydrogenase Troponin T C-Reactive Protein 10.50 H NT-Pro-B Natriuret Pep Total Protein Albumin HDL Cholesterol Coronavirus (PCR) SARS-CoV-2 (PCR) 04/30/22 04/30/22 04/30/22 07:21 07:21 10:00 RBC 2.83 L Hgb 8.8 L Hct 27.9 L MCV 98 H RDW 17.2 H Lymph % (Auto) Lymph # (Auto) Seg Neutrophils % Seg Neuts % (Manual) 93.0 H Lymphocytes % (Manual) 6.0 L Lymphocytes # (Manual) 0.5 L D-Dimer Sodium Carbon Dioxide 31 H BUN 29 H Creatinine 2.6 H Glucose Calcium 8.2 L Ferritin Lactate Dehydrogenase Troponin T C-Reactive Protein NT-Pro-B Natriuret Pep Total Protein Albumin HDL Cholesterol Coronavirus (PCR) Positive A SARS-CoV-2 (PCR) 05/01/22 05/01/22 05/01/22 06:22 06:22 06:22 RBC 2.65 L Hgb 8.2 L Hct 25.9 L MCV 98 H RDW 16.7 H Lymph % (Auto) 5.9 L Lymph # (Auto) 0.3 L Seg Neutrophils % 89.9 H Seg Neuts % (Manual) Lymphocytes % (Manual) Lymphocytes # (Manual) D-Dimer 1200.26 H Sodium Carbon Dioxide BUN 50 H Creatinine 3.4 H Glucose Calcium 8.2 L Ferritin Lactate Dehydrogenase 211 H Troponin T C-Reactive Protein 2.10 H NT-Pro-B Natriuret Pep Total Protein Albumin HDL Cholesterol Coronavirus (PCR) SARS-CoV-2 (PCR) 05/01/22 05/05/22 06:22 12:40 RBC Hgb Hct MCV RDW Lymph % (Auto) Lymph # (Auto) Seg Neutrophils % Seg Neuts % (Manual) Lymphocytes % (Manual) Lymphocytes # (Manual) D-Dimer Sodium Carbon Dioxide BUN Creatinine Glucose Calcium Ferritin 354.3 H Lactate Dehydrogenase Troponin T C-Reactive Protein NT-Pro-B Natriuret Pep Total Protein Albumin HDL Cholesterol Coronavirus (PCR) SARS-CoV-2 (PCR) Positive A
[2022-05-06] MEDS: SEVELAMER CARBONATE 800 MG TAB PO SCH ×3 (10:03→17:44)
[2022-05-06] MEDS: FAMOTIDINE 20 MG TAB PO SCH (10:03)
[2022-05-06] MEDS: NIFEdipine XL 60 MG TAB PO SCH ×2 (10:03→21:23)
[2022-05-06] MEDS: DEXAMETHASONE 4 MG TAB PO SCH (10:03)
[2022-05-06] MEDS: ASCORBIC ACID 500 MG TAB PO SCH (10:03)
[2022-05-06] MEDS: FERROUS SULFATE 325 MG TAB PO SCH (10:03)
[2022-05-06] MEDS: carvediloL 12.5 MG TAB PO SCH ×2 (10:03→21:23)
--- NOTE | 2022-05-06 16:29 | Progress Note ---
Assessment and Plan Assessment and plan: #COVID-19 pneumonia #Acute hypoxic respiratory failure-improving - etiology: Secondary to COVID-19 pneumonia - baseline oxygen requirements: Room air - supplemental oxygen: 3L nasal cannula - Continue protocol: continue pulse oximetry, wean oxygen as tolerated, dexamethasone 8 mg daily x10 days, azithromycin 250 mg daily x5 days (completed on 05/02/2022), airborne and droplet precautions -Infectious disease consulted; appreciate recs. Patient not currently candidate for remdesivir given renal function. Pulmonology consulted; appreciate recs - continue to monitor #Possible acute heart failure-ruled out - Continue CHF exacerbation protocol: Telemetry, Strict I/O, monitor urine output every shift, daily weights, afterload reduction, low-sodium diet, and fluid restriction of approximately 1.5 mL/day, IV Lasix 40 mg twice daily - Supplemental oxygen: NC @3LPM - ProBNP on admission: 13,672 - TTE (04/28/2022) revealing EF 55-60%, normal-sized LV, normal LV systolic function, mild concentric LVH with mild diastolic dysfunction, and RVSP is 41 mmHg. - Continue to monitor #Elevated D-dimer D-dimer 1044 Unremarkable bilateral venous Dopplers to evaluate for possible DVT. Continue to monitor. #ESRD on hemodialysis -Access: Permacath in right upper chest -Outpatient schedule: Unknown -HD center: N/A -Nephrology consulted; appreciate recs. -Renally dose medications and avoid nephrotoxic drugs. Renal diet. #Macrocytic anemia Hemoglobin 8.8 Transfuse if hemoglobin <7 or patient becomes symptomatic. Continue to monitor. #Hypothyroidism Continue home levothyroxine 200 mcg daily #Mild protein caloric malnutrition Albumin 2.5 Continue dietary supplementation #Advanced care planning -Disease education conducted, care plan discussed, diagnoses discussed, prognosis discussed, and patient acknowledges understanding with care plan -Time: +30 min #Discharge planning - Patient is pending further respiratory improvement. - Case management has been made aware. - Discharge is tentatively once bed is available at rehab History Interval history: No acute events overnight. Patient reports feeling well. Currently receiving hemodialysis. She has no acute complaints at this time. Hospitalist Physical - Physical exam Narrative exam: GENERAL: Well-developed well-nourished. In no acute distress. HEENT: NC@2LPM NECK: R sided permacath. CHEST/LUNGS: CTAB on room air HEART/CARDIOVASCULAR: RRR. No murmur, rubs or gallops appreciated. ABDOMEN: +BS. NT/ND. SKIN: No rashes noted. NEURO: No focal motor deficit. Follows all commands. MUSCULOSKELETAL: No joint effusion EXTREMITIES: No cyanosis, clubbing or edema. PSYCH: Cooperative. - Constitutional Vitals: Temp Pulse Resp BP Pulse Ox 97.4 F L 84 18 118/66 98 05/06/22 10:04 05/06/22 10:04 05/06/22 10:04 05/06/22 10:04 05/06/22 11:28 General appearance: Present: no acute distress, well-nourished HEART Score - HEART Score Troponin: Troponin T 0.075 ng/mL (0.00-0.029) H 04/28/22 14:49 Results - Labs CBC & Chem 7: 05/01/22 06:22 05/01/22 06:22 Labs: Laboratory Last Values WBC 5.3 K/mm3 (4.5-11.0) 05/01/22 06:22 RBC 2.65 M/mm3 (3.65-5.03) L 05/01/22 06:22 Hgb 8.2 gm/dl (10.1-14.3) L 05/01/22 06:22 Hct 25.9 % (30.3-42.9) L 05/01/22 06:22 MCV 98 fl (79-97) H 05/01/22 06:22 MCH 31 pg (28-32) 05/01/22 06:22 MCHC 32 % (30-34) 05/01/22 06:22 RDW 16.7 % (13.2-15.2) H 05/01/22 06:22 Plt Count 172 K/mm3 (140-440) 05/01/22 06:22 Lymph % (Auto) 5.9 % (13.4-35.0) L 05/01/22 06:22 [place] % (Auto) 4.1 % (0.0-7.3) 05/01/22 06:22 Eos % (Auto) 0.0 % (0.0-4.3) 05/01/22 06:22 Baso % (Auto) 0.1 % (0.0-1.8) 05/01/22 06:22 Lymph # (Auto) 0.3 K/mm3 (1.2-5.4) L 05/01/22 06:22 [place] # (Auto) 0.2 K/mm3 (0.0-0.8) 05/01/22 06:22 Eos # (Auto) 0.0 K/mm3 (0.0-0.4) 05/01/22 06:22 Baso # (Auto) 0.0 K/mm3 (0.0-0.1) 05/01/22 06:22 Add Manual Diff Complete 04/30/22 07:21 Total Counted 100 04/30/22 07:21 Seg Neutrophils % 89.9 % (40.0-70.0) H 05/01/22 06:22 Seg Neuts % (Manual) 93.0 % (40.0-70.0) H 04/30/22 07:21 Band Neutrophils % 0 % 04/30/22 07:21 Lymphocytes % (Manual) 6.0 % (13.4-35.0) L 04/30/22 07:21 Reactive Lymphs % (Man) 0 % 04/30/22 07:21 Monocytes % (Manual) 0 % (0.0-7.3) 04/30/22 07:21 Eosinophils % (Manual) 0 % (0.0-4.3) 04/30/22 07:21 Basophils % (Manual) 0 % (0.0-1.8) 04/30/22 07:21 Metamyelocytes % 0 % 04/30/22 07:21 Myelocytes % 1.0 % 04/30/22 07:21 Promyelocytes % 0 % 04/30/22 07:21 Blast Cells % 0 % 04/30/22 07:21 Nucleated RBC % Not Reportable 04/30/22 07:21 Seg Neutrophils # 4.8 K/mm3 (1.8-7.7) 05/01/22 06:22 Seg Neutrophils # Man 7.4 K/mm3 (1.8-7.7) 04/30/22 07:21 Band Neutrophils # 0.0 K/mm3 04/30/22 07:21 Lymphocytes # (Manual) 0.5 K/mm3 (1.2-5.4) L 04/30/22 07:21 Abs React Lymphs (Man) 0.0 K/mm3 04/30/22 07:21 Monocytes # (Manual) 0.0 K/mm3 (0.0-0.8) 04/30/22 07:21 Eosinophils # (Manual) 0.0 K/mm3 (0.0-0.4) 04/30/22 07:21 Basophils # (Manual) 0.0 K/mm3 (0.0-0.1) 04/30/22 07:21 Metamyelocytes # 0.0 K/mm3 04/30/22 07:21 Myelocytes # 0.1 K/mm3 04/30/22 07:21 Promyelocytes # 0.0 K/mm3 04/30/22 07:21 Blast Cells # 0.0 K/mm3 04/30/22 07:21 WBC Morphology Not Reportable 04/30/22 07:21 Hypersegmented Neuts Not Reportable 04/30/22 07:21 Hyposegmented Neuts Not Reportable 04/30/22 07:21 Hypogranular Neuts Not Reportable 04/30/22 07:21 Smudge Cells Not Reportable 04/30/22 07:21 Toxic Granulation Not Reportable 04/30/22 07:21 Toxic Vacuolation Not Reportable 04/30/22 07:21 Dohle Bodies Not Reportable 04/30/22 07:21 Pelger-Huet Anomaly Not Reportable 04/30/22 07:21 Kristi Rods Not Reportable 04/30/22 07:21 Platelet Estimate Consistent w auto 04/30/22 07:21 Clumped Platelets Not Reportable 04/30/22 07:21 Plt Clumps, EDTA Not Reportable 04/30/22 07:21 Large Platelets Not Reportable 04/30/22 07:21 Giant Platelets Not Reportable 04/30/22 07:21 Platelet Satelliting Not Reportable 04/30/22 07:21 Plt Morphology Comment Not Reportable 04/30/22 07:21 RBC Morphology Not Reportable 04/30/22 07:21 Dimorphic RBCs Not Reportable 04/30/22 07:21 Polychromasia Not Reportable 04/30/22 07:21 Hypochromasia Not Reportable 04/30/22 07:21 Poikilocytosis Not Reportable 04/30/22 07:21 Anisocytosis 1+ 04/30/22 07:21 Microcytosis Not Reportable 04/30/22 07:21 Macrocytosis Not Reportable 04/30/22 07:21 Spherocytes Not Reportable 04/30/22 07:21 Pappenheimer Bodies Not Reportable 04/30/22 07:21 Sickle Cells Not Reportable 04/30/22 07:21 Target Cells Not Reportable 04/30/22 07:21 Tear Drop Cells Not Reportable 04/30/22 07:21 Ovalocytes Not Reportable 04/30/22 07:21 Helmet Cells Not Reportable 04/30/22 07:21 Jett-[place] Bodies Not Reportable 04/30/22 07:21 [place] Rings Not Reportable 04/30/22 07:21 [place] Cells Not Reportable 04/30/22 07:21 Bite Cells Not Reportable 04/30/22 07:21 Crenated Cell Not Reportable 04/30/22 07:21 Elliptocytes Not Reportable 04/30/22 07:21 Acanthocytes (Spur) Not Reportable 04/30/22 07:21 Rouleaux Not Reportable 04/30/22 07:21 Hemoglobin C Crystals Not Reportable 04/30/22 07:21 Schistocytes Not Reportable 04/30/22 07:21 Malaria parasites Not Reportable 04/30/22 07:21 [place] Bodies Not Reportable 04/30/22 07:21 Hem Pathologist Commnt No 04/30/22 07:21 PT 13.5 Sec. (12.2-14.9) 04/28/22 14:49 INR 0.91 (0.87-1.13) 04/28/22 14:49 APTT 33.8 Sec. (24.2-36.6) 04/28/22 14:49 D-Dimer 1200.26 ng/mlDDU (0-234) H 05/01/22 06:22 Sodium 141 mmol/L (137-145) 05/01/22 06:22 Potassium 3.9 mmol/L (3.6-5.0) 05/01/22 06:22 Chloride 101.5 mmol/L (98-107) 05/01/22 06:22 Carbon Dioxide 30 mmol/L (22-30) 05/01/22 06:22 Anion Gap 13 mmol/L 05/01/22 06:22 BUN 50 mg/dL (7-17) H 05/01/22 06:22 Creatinine 3.4 mg/dL (0.6-1.2) H 05/01/22 06:22 Estimated GFR 14 ml/min 05/01/22 06:22 BUN/Creatinine Ratio 15 % 05/01/22 06:22 Glucose 99 mg/dL (65-100) 05/01/22 06:22 POC Glucose 81 mg/dL (70-105) 05/05/22 08:20 Calcium 8.2 mg/dL (8.4-10.2) L 05/01/22 06:22 Ferritin 354.3 ng/mL (10.0-200.0) H 05/01/22 06:22 Total Bilirubin 0.20 mg/dL (0.1-1.2) 04/28/22 14:49 AST 26 units/L (5-40) 04/28/22 14:49 ALT 14 units/L (7-56) 04/28/22 14:49 Alkaline Phosphatase 70 units/L (35-129) 04/28/22 14:49 Lactate Dehydrogenase 211 units/L (91-180) H 05/01/22 06:22 Troponin T 0.075 ng/mL (0.00-0.029) H 04/28/22 14:49 C-Reactive Protein 2.10 mg/dL (0.00-1.30) H 05/01/22 06:22 NT-Pro-B Natriuret Pep 49071 pg/mL (0-900) H 04/28/22 14:49 Total Protein 5.6 g/dL (6.3-8.2) L 04/28/22 14:49 Albumin 2.8 g/dL (3.9-5) L 04/28/22 14:49 Albumin/Globulin Ratio 1.0 % 04/28/22 14:49 Triglycerides 128 mg/dL (2-149) 04/28/22 14:49 Cholesterol 154 mg/dL (50-199) 04/28/22 14:49 LDL Cholesterol Direct 63 mg/dL (50-130) 04/28/22 14:49 HDL Cholesterol 64 mg/dL (40-59) H 04/28/22 14:49 Cholesterol/HDL Ratio 2.40 % 04/28/22 14:49 Nasal Screen MRSA (PCR) Negative (Negative) 04/29/22 02:09 Coronavirus (PCR) Positive (Negative) A 04/30/22 10:00 SARS-CoV-2 (PCR) Positive (Negative) A 05/05/22 12:40 Hepatitis A IgM Ab Non-reactive (NonReactive) 04/29/22 10:27 Hep Bs Antigen Non-reactive (Negative) 04/29/22 10:27 Hep B Core IgM Ab Non-reactive (NonReactive) 04/29/22 10:27 Hepatitis C Antibody Non-reactive (NonReactive) 04/29/22 10:27 Pichardo/IV: Voiding Method Bedpan Active Medications - Current Medications Current Medications: Generic Name Dose Route Start Last Admin Trade Name Freq PRN Reason Stop Dose Admin Acetaminophen 650 mg 04/28/22 23:21 05/05/22 17:44 Acetaminophen 325 Mg Tab PO 650 mg Q4H PRN Administration Pain MILD(1-3)/Fever >100.5/KENDALL Albuterol 2.5 mg 04/28/22 23:21 Albuterol 2.5 Mg/3 Ml Nebu IH Q3HRT PRN Shortness Of Breath Ascorbic Acid 500 mg 04/29/22 10:00 05/06/22 10:03 Ascorbic Acid 500 Mg Tab PO 500 mg DAILY TOSHIA Administration Carvedilol 12.5 mg 04/29/22 10:00 05/06/22 10:03 Carvedilol 12.5 Mg Tab PO 12.5 mg BID TOSHIA Administration Dexamethasone 8 mg 05/05/22 10:00 05/06/22 10:03 Dexamethasone 4 Mg Tab PO 05/07/22 10:01 8 mg DAILY TOSHIA Administration Epoetin Ck-epbx 20,000 unit 05/01/22 14:10 05/01/22 17:20 Epoetin Ck-Epbx 20,000 Unit/1 Ml Vial IV 20,000 unit HOMER PRN Administration hemodialysis Famotidine 20 mg 04/29/22 10:00 05/06/22 10:03 Famotidine 20 Mg Tab PO 20 mg DAILY TOSHIA Administration Ferrous Sulfate 325 mg 04/29/22 10:00 05/06/22 10:03 Ferrous Sulfate 325 Mg Tab PO 325 mg DAILY TOSHIA Administration Guaifenesin 200 mg 04/29/22 18:23 05/05/22 06:11 Guaifenesin 100 Mg/5 Ml Oral Liqd PO 200 mg Q4H PRN Administration Cough Heparin Sodium (Porcine) 5,000 unit 04/29/22 06:00 05/06/22 13:11 Heparin 5,000 Unit/1 Ml Vial SUB-Q 5,000 unit Q8HR TOSHIA Administration Sodium Chloride 100 mls @ 999 mls/hr 04/29/22 10:30 Nacl 0.9% IV HOMER PRN Hypotension Levothyroxine Sodium 200 mcg 04/29/22 06:00 05/06/22 05:36 Levothyroxine 100 Mcg Tab PO 200 mcg QAM@0600 TOSHIA Administration Morphine Sulfate 2 mg 04/28/22 23:21 Morphine 2 Mg/1 Ml Inj IV Q4H PRN Pain, Moderate (4-6) Morphine Sulfate 4 mg 04/28/22 23:21 Morphine 4 Mg/1 Ml Inj IV Q4H PRN Pain , Severe (7-10) Nifedipine 60 mg 05/03/22 10:00 05/06/22 10:03 Nifedipine Xl 60 Mg Tab PO 60 mg Q12HR TOSHIA Administration Ondansetron HCl 4 mg 04/28/22 23:21 Ondansetron 4 Mg/2 Ml Inj IV Q8H PRN Nausea And Vomiting Sevelamer Carbonate 800 mg 04/29/22 08:00 05/06/22 11:28 Sevelamer Carbonate 800 Mg Tab PO Not Given TIDWM TOSHIA Sodium Chloride 10 ml 04/29/22 10:00 05/06/22 10:03 Sodium Chloride 0.9% 10 Ml Flush Syringe IV 10 ml BID TOSHIA Administration Sodium Chloride 10 ml 04/28/22 23:21 Sodium Chloride 0.9% 10 Ml Flush Syringe IV PRN PRN LINE FLUSH Nutrition/Malnutrition Assess - Dietary Evaluation Nutrition/Malnutrition Findings: Nutrition Notes Start: 04/29/22 12:04 Freq: Status: Active Protocol: Document 05/06/22 09:59 ASHISH (Rec: 05/06/22 10:17 ASHISH [email or web address]) Nutrition Notes Initial or Follow up Reassessment Current Diagnosis CKD (stage V CKD),Hypertension ,Respiratory Failure, Malnutrition Other Pertinent Diagnosis ESRD+HD, s/p COVID-19/ Pneumonia, Anemia, Hypothyroidism. Current Diet Cardiac Diet (since B 04/28), Cardiac -Renal- Diet+D Suppl ( from D 04/29). Labs/Tests 05/06: BUN 50, Crea 3.4, Ca 8. 2. Pertinent Medications 05/06: Vit C, FeSO4, Levothyroxine, Renvela, others nutritionally unremarkable. Height 5 ft 3 in Weight 72.3 kg [place] Body Weight (kg) 52.27 BMI 28.2 Weight change and time frame 0.275 Body weight loss reported in 1 week. Weight Status Overweight Subjective/Other Information RD consult for routine F/U on dietary advancement. Diet continues as prescribed, Pt's PO intake of meals has been Good (100%) and well tolerated, according to ADL notes. Pt is on Nasal Cannula, O2 saturation @ 98%, according to Physical Assessment History notes. Pt shows an unspecified area of concern for skin risk at the time, according to Physical Assessment History notes. Plans for discharge on 05/06, as Pt is medically cleared, according to Progress notes. Percent of energy/protein needs met: Prescribed Cardiac -Renal- Diet provides for energy/ protein needs (2,230 Kcal/85 g ) during LOS; additionally, Dietary Supplements will compensate for possible poor or insufficient PO intake of meals with 850 Kcal and 38 g of protein. Burn Absent Trauma Absent GI Symptoms None Food Allergy No Skin Integrity/Comment Unspecified area of concern. Current % PO Good (75-100%) Minimum of two criteria No Fluid Accumulation N/A Reduced Campaign Manager Strength N/A (non-severe) Protein-Calorie Malnutrition N\A #2 Nutrition Diagnosis Altered nutrition-related laboratory values Comments: 05/06: BUN 50, Crea 3.4, Ca 8. 2. Diagnosis Progress(for reassessment Continues documentation) #1 Nutrition Diagnosis Predicted suboptimal energy intake Comments: Diet continues as prescribed, Pt's PO intake of meals has been Good (100%) and well tolerated, according to ADL notes. Diagnosis Progress(for reassessment Resolved documentation) Is patient on ventilator? No Is Patient Ambulatory and/or Out of Bed No REE-([facility]-confined to bed) 1525.344 Kcal/Kg value to use for calculation 19 Approximate Energy Requirements Using 1374 kcal/Kg Calculation Used for Recommendations Kcal/kg Additional Notes Protein: >1.2 g/Kg ABW; >88 g/ day. Fluids: 1 ml/Kcal, or as per MD. Nutrition Intervention Change Diet Order: Continue Renal restriction to Cardiac Diet as tolerated. Add Supplement/Snack (indicate name/kcal Discontinue. /protein ) Goal #1 Help reach and maintain acceptable chemistry lab values during LOS. Goal #2 Adjust the dietary intervention to better serve Pt's needs and clinical conditions during LOS. Follow-Up By: 05/13/22 Additional Comments Continue monitoring food tolerance, %PO intake of meals , and BM.
[2022-05-06] MEDS: ACETAMINOPHEN 325 MG TAB PO PRN (18:43)
--- NOTE | 2022-05-06 20:39 | Progress Note ---
Assessment and Plan This is a 61 year old woman who presents with dyspnea, COVID-19 # ESRD: continue HD // - daily labs - renally dose meds - avoid nephrotoxins - renal diet - verbal consent obtained for HD # Anemia: ESAs with HD TIW # HTN: UF as tolerated, aim net negative as able. BP stable # Secondary Hyperparathyroidism: continue home binders as needed, vitamin D analogs prn # COVID-19 Pneumonia, Respiratory Failure: improving, pulmonary/ID also following # CHF: note BNP 13K on admission, UF as tolerated, goal net negative Subjective Date of service: 05/06/22 Principal diagnosis: Covid pneumonia Interval history: Remains off oxygen. Vitals, labs, I/O reviewed. Objective - Exam Narrative Exam: Covid positive, exam deferred for PPE conservation, primary team exam reviewed. - Vital Signs Vital signs: Vital Signs - 12hr 05/06/22 05/06/22 05/06/22 09:06 10:04 11:28 Temperature 97.4 F L Pulse Rate 84 Respiratory 18 Rate Blood Pressure Blood Pressure 118/66 [Left] O2 Sat by Pulse 97 99 98 Oximetry O2 Sat by Pulse Oximetry [ Anterior Bilateral Throughout] 05/06/22 05/06/22 05/06/22 13:46 13:50 14:00 Temperature 98.3 F Pulse Rate 79 78 76 Respiratory 18 Rate Blood Pressure 104/46 100/50 105/54 Blood Pressure [Left] O2 Sat by Pulse Oximetry O2 Sat by Pulse 95 Oximetry [ Anterior Bilateral Throughout] 05/06/22 05/06/22 05/06/22 14:15 14:30 14:45 Temperature Pulse Rate 74 82 79 Respiratory Rate Blood Pressure 108/63 98/63 115/63 Blood Pressure [Left] O2 Sat by Pulse Oximetry O2 Sat by Pulse Oximetry [ Anterior Bilateral Throughout] 05/06/22 05/06/22 05/06/22 15:00 15:15 15:30 Temperature Pulse Rate 79 78 80 Respiratory Rate Blood Pressure 117/57 106/55 118/54 Blood Pressure [Left] O2 Sat by Pulse Oximetry O2 Sat by Pulse Oximetry [ Anterior Bilateral Throughout] 05/06/22 05/06/22 05/06/22 15:45 16:00 16:15 Temperature Pulse Rate 75 78 82 Respiratory Rate Blood Pressure 129/66 124/59 117/60 Blood Pressure [Left] O2 Sat by Pulse Oximetry O2 Sat by Pulse Oximetry [ Anterior Bilateral Throughout] 05/06/22 05/06/22 05/06/22 16:30 16:45 16:50 Temperature Pulse Rate 81 78 79 Respiratory Rate Blood Pressure 120/69 122/70 120/64 Blood Pressure [Left] O2 Sat by Pulse Oximetry O2 Sat by Pulse Oximetry [ Anterior Bilateral Throughout] 05/06/22 05/06/22 17:30 20:17 Temperature 98.2 F Pulse Rate 79 Respiratory 18 Rate Blood Pressure 126/65 Blood Pressure [Left] O2 Sat by Pulse 98 Oximetry O2 Sat by Pulse 96 Oximetry [ Anterior Bilateral Throughout] - Lab 05/01/22 06:22 05/01/22 06:22 Most recent lab results Calcium 8.2 mg/dL (8.4-10.2) L 05/01/22 06:22 Medications & Allergies - Medications Allergies/Adverse Reactions: Allergies NSAIDS (Non-Steroidal Anti-Inflamma Allergy (Verified 04/28/22 13:30) Rash Sulfa (Sulfonamide Antibiotics) Allergy (Verified 04/28/22 13:30) Rash Home Medications: Home Medications Medication Instructions Recorded Confirmed Last Taken Type Ascorbic Acid [Vitamin C] 500 mg PO DAILY 04/28/22 04/28/22 Unknown History Ferrous Sulfate [Ferrous Sulfate 324 mg PO DAILY 04/28/22 04/28/22 Unknown History 324 MG] Levothyroxine Sodium 200 mcg PO DAILY 04/28/22 04/28/22 Unknown History [Levothyroxine] Venlafaxine [Effexor 37.5mg tab] 37.5 mg PO QDAY 04/28/22 04/28/22 Unknown History carvediloL [Coreg] 12.5 mg PO BID 04/28/22 04/28/22 Unknown History sevelamer HCL [Sevelamer HCl] 800 mg PO TID 04/28/22 04/28/22 Unknown History Benzonatate [Tessalon Perles] 100 mg PO Q8HR PRN #30 cap 05/05/22 Unknown Rx NIFEdipine XL [Procardia Xl] 60 mg PO Q12HR #60 tablet 05/05/22 Unknown Rx dexAMETHasone [Decadron] 8 mg PO DAILY #3 tablet 05/05/22 Unknown Rx Active Medications: Generic Name Dose Route Start Last Admin Trade Name Freq PRN Reason Stop Dose Admin Acetaminophen 650 mg 04/28/22 23:21 05/06/22 18:43 Acetaminophen 325 Mg Tab PO 650 mg Q4H PRN Administration Pain MILD(1-3)/Fever >100.5/KENDALL Albuterol 2.5 mg 04/28/22 23:21 Albuterol 2.5 Mg/3 Ml Nebu IH Q3HRT PRN Shortness Of Breath Ascorbic Acid 500 mg 04/29/22 10:00 05/06/22 10:03 Ascorbic Acid 500 Mg Tab PO 500 mg DAILY TOSHIA Administration Carvedilol 12.5 mg 04/29/22 10:00 05/06/22 10:03 Carvedilol 12.5 Mg Tab PO 12.5 mg BID TOSHIA Administration Dexamethasone 8 mg 05/05/22 10:00 05/06/22 10:03 Dexamethasone 4 Mg Tab PO 05/07/22 10:01 8 mg DAILY TOSHIA Administration Epoetin Ck-epbx 20,000 unit 05/01/22 14:10 05/01/22 17:20 Epoetin Ck-Epbx 20,000 Unit/1 Ml Vial IV 20,000 unit HOMER PRN Administration hemodialysis Famotidine 20 mg 04/29/22 10:00 05/06/22 10:03 Famotidine 20 Mg Tab PO 20 mg DAILY TOSHIA Administration Ferrous Sulfate 325 mg 04/29/22 10:00 05/06/22 10:03 Ferrous Sulfate 325 Mg Tab PO 325 mg DAILY TOSHIA Administration Guaifenesin 200 mg 04/29/22 18:23 05/05/22 06:11 Guaifenesin 100 Mg/5 Ml Oral Liqd PO 200 mg Q4H PRN Administration Cough Heparin Sodium (Porcine) 5,000 unit 04/29/22 06:00 05/06/22 13:11 Heparin 5,000 Unit/1 Ml Vial SUB-Q 5,000 unit Q8HR TOSHIA Administration Sodium Chloride 100 mls @ 999 mls/hr 04/29/22 10:30 Nacl 0.9% IV HOMER PRN Hypotension Levothyroxine Sodium 200 mcg 04/29/22 06:00 05/06/22 05:36 Levothyroxine 100 Mcg Tab PO 200 mcg QAM@0600 TOSHIA Administration Morphine Sulfate 2 mg 04/28/22 23:21 Morphine 2 Mg/1 Ml Inj IV Q4H PRN Pain, Moderate (4-6) Morphine Sulfate 4 mg 04/28/22 23:21 Morphine 4 Mg/1 Ml Inj IV Q4H PRN Pain , Severe (7-10) Nifedipine 60 mg 05/03/22 10:00 05/06/22 10:03 Nifedipine Xl 60 Mg Tab PO 60 mg Q12HR TOSHIA Administration Ondansetron HCl 4 mg 04/28/22 23:21 Ondansetron 4 Mg/2 Ml Inj IV Q8H PRN Nausea And Vomiting Sevelamer Carbonate 800 mg 04/29/22 08:00 05/06/22 17:44 Sevelamer Carbonate 800 Mg Tab PO 800 mg TIDWM TOSHIA Administration Sodium Chloride 10 ml 04/29/22 10:00 05/06/22 10:03 Sodium Chloride 0.9% 10 Ml Flush Syringe IV 10 ml BID TOSHIA Administration Sodium Chloride 10 ml 04/28/22 23:21 Sodium Chloride 0.9% 10 Ml Flush Syringe IV PRN PRN LINE FLUSH
[2022-05-07] MEDS: HEPARIN 5,000 UNIT/1 ML VIAL SUB-Q SCH ×3 (05:17→21:29)
[2022-05-07] MEDS: LEVOTHYROXINE 100 MCG TAB PO SCH (05:17)
--- NOTE | 2022-05-07 09:17 | Progress Note ---
Assessment and Plan 61 y/o with acute respiratory failure secondary to COVID 19 05/07/22: Continue to wean oxygen while awaiting facility bed. 05/06/22: Patient will be discharged today. Oxygen weaning and assessment for home can be determined at next facility. Steroids for 10 days. 05/05/22: 10 days total of dex. Continue to prone at home. Suggested walk test prior to discharge to evaluate oxygen needs. 05/04/22: Wean FiO2 to off. Steroids for 10 days. Prone daily and sleep prone. 05/03/22: Continue to wean FiO2 to off for sats > 88% as patient is not on oxygen at home. Steroids. Prone daily and sleep prone at night if possible. Will continue to follow. 05/02/22: HD really hepled with volume removal. Should get HD again tomorrow. Same recs regarding proning. Patient not on O2 at home so will need walk test prior to discharge. 05/01/22: Continue steroids. Actemra ordered by ID. PRone if possible during the day and sleep prone at night. Needs volume removal with HD, based on vitals, BP should tolerate it. Guarded prognosis. 1. Dexamethasone as ordered 2. Agree with ID and use of actemra 3. If able to prone, suggest prone as tolerated during the day and sleep prone at night 4. Wean FiO2 and flow for sats >88% 5. HD per renal, need to keep daily net negative state if possible 6. Guarded prognosis. Subjective Date of service: 05/07/22 Principal diagnosis: Covid pneumonia Interval history: Still no bed available. Stable on 3 liters with very good sats. Objective Vital Signs - 12hr 05/06/22 05/07/22 05/07/22 23:06 05:54 08:23 Temperature 97.8 F 98.1 F Pulse Rate 74 76 Respiratory 20 18 Rate Blood Pressure 126/54 109/62 O2 Sat by Pulse 93 98 99 Oximetry CBC and BMP: 05/01/22 06:22 05/01/22 06:22 ABG, PT/INR, D-dimer: PT/INR, D-dimer PT 13.5 Sec. (12.2-14.9) 04/28/22 14:49 INR 0.91 (0.87-1.13) 04/28/22 14:49 D-Dimer 1200.26 ng/mlDDU (0-234) H 05/01/22 06:22 Abnormal lab findings: Abnormal Labs 04/28/22 04/28/22 04/28/22 14:49 14:49 14:49 RBC 3.08 L Hgb 9.6 L Hct MCV 99 H RDW 17.7 H Lymph % (Auto) Lymph # (Auto) Seg Neutrophils % Seg Neuts % (Manual) 78.0 H Lymphocytes % (Manual) 3.0 L Lymphocytes # (Manual) 0.3 L D-Dimer Sodium 133 L Carbon Dioxide 21 L BUN 39 H Creatinine 3.7 H Glucose Calcium 8.2 L Ferritin Lactate Dehydrogenase Troponin T 0.075 H C-Reactive Protein NT-Pro-B Natriuret Pep 06598 H Total Protein 5.6 L Albumin 2.8 L HDL Cholesterol 64 H Coronavirus (PCR) SARS-CoV-2 (PCR) 04/29/22 04/29/22 04/29/22 08:04 08:04 08:04 RBC Hgb Hct MCV RDW Lymph % (Auto) Lymph # (Auto) Seg Neutrophils % Seg Neuts % (Manual) Lymphocytes % (Manual) Lymphocytes # (Manual) D-Dimer 1044.30 H Sodium Carbon Dioxide BUN 48 H Creatinine 4.0 H Glucose 147 H Calcium Ferritin 458.0 H Lactate Dehydrogenase Troponin T C-Reactive Protein 10.50 H NT-Pro-B Natriuret Pep Total Protein Albumin HDL Cholesterol Coronavirus (PCR) SARS-CoV-2 (PCR) 04/30/22 04/30/22 04/30/22 07:21 07:21 10:00 RBC 2.83 L Hgb 8.8 L Hct 27.9 L MCV 98 H RDW 17.2 H Lymph % (Auto) Lymph # (Auto) Seg Neutrophils % Seg Neuts % (Manual) 93.0 H Lymphocytes % (Manual) 6.0 L Lymphocytes # (Manual) 0.5 L D-Dimer Sodium Carbon Dioxide 31 H BUN 29 H Creatinine 2.6 H Glucose Calcium 8.2 L Ferritin Lactate Dehydrogenase Troponin T C-Reactive Protein NT-Pro-B Natriuret Pep Total Protein Albumin HDL Cholesterol Coronavirus (PCR) Positive A SARS-CoV-2 (PCR) 05/01/22 05/01/22 05/01/22 06:22 06:22 06:22 RBC 2.65 L Hgb 8.2 L Hct 25.9 L MCV 98 H RDW 16.7 H Lymph % (Auto) 5.9 L Lymph # (Auto) 0.3 L Seg Neutrophils % 89.9 H Seg Neuts % (Manual) Lymphocytes % (Manual) Lymphocytes # (Manual) D-Dimer 1200.26 H Sodium Carbon Dioxide BUN 50 H Creatinine 3.4 H Glucose Calcium 8.2 L Ferritin Lactate Dehydrogenase 211 H Troponin T C-Reactive Protein 2.10 H NT-Pro-B Natriuret Pep Total Protein Albumin HDL Cholesterol Coronavirus (PCR) SARS-CoV-2 (PCR) 05/01/22 05/05/22 06:22 12:40 RBC Hgb Hct MCV RDW Lymph % (Auto) Lymph # (Auto) Seg Neutrophils % Seg Neuts % (Manual) Lymphocytes % (Manual) Lymphocytes # (Manual) D-Dimer Sodium Carbon Dioxide BUN Creatinine Glucose Calcium Ferritin 354.3 H Lactate Dehydrogenase Troponin T C-Reactive Protein NT-Pro-B Natriuret Pep Total Protein Albumin HDL Cholesterol Coronavirus (PCR) SARS-CoV-2 (PCR) Positive A
--- NOTE | 2022-05-07 09:28 | Progress Note ---
Assessment and Plan Assessment and plan: #COVID-19 pneumonia #Acute hypoxic respiratory failure-improving - etiology: Secondary to COVID-19 pneumonia - baseline oxygen requirements: Room air - supplemental oxygen: 2L nasal cannula - Continue protocol: continue pulse oximetry, wean oxygen as tolerated, dexamethasone 8 mg daily x10 days, azithromycin 250 mg daily x5 days (completed on 05/02/2022), airborne and droplet precautions -Infectious disease consulted; appreciate recs. Patient not currently candidate for remdesivir given renal function. Pulmonology consulted; appreciate recs - continue to monitor #Possible acute heart failure-ruled out - Continue CHF exacerbation protocol: Telemetry, Strict I/O, monitor urine output every shift, daily weights, afterload reduction, low-sodium diet, and fluid restriction of approximately 1.5 mL/day, IV Lasix 40 mg twice daily - Supplemental oxygen: NC @2LPM - ProBNP on admission: 13,672 - TTE (04/28/2022) revealing EF 55-60%, normal-sized LV, normal LV systolic function, mild concentric LVH with mild diastolic dysfunction, and RVSP is 41 mmHg. - Continue to monitor #Elevated D-dimer D-dimer 1044 Unremarkable bilateral venous Dopplers to evaluate for possible DVT. Continue to monitor. #ESRD on hemodialysis -Access: Permacath in right upper chest -Outpatient schedule: Unknown -HD center: N/A -Nephrology consulted; appreciate recs. -Renally dose medications and avoid nephrotoxic drugs. Renal diet. #Macrocytic anemia Hemoglobin 8.8 Transfuse if hemoglobin <7 or patient becomes symptomatic. Continue to monitor. #Hypothyroidism Continue home levothyroxine 200 mcg daily #Mild protein caloric malnutrition Albumin 2.5 Continue dietary supplementation #Advanced care planning -Disease education conducted, care plan discussed, diagnoses discussed, prognosis discussed, and patient acknowledges understanding with care plan -Time: +30 min #Discharge planning - Patient is pending further respiratory improvement. - Case management has been made aware. - Discharge is tentatively once bed is available at rehab History Interval history: No acute events overnight. Patient reports feeling great. She has no acute complaints at this time. We discussed the current care plan and patient was agreeable. Hospitalist Physical - Physical exam Narrative exam: GENERAL: Well-developed well-nourished. In no acute distress. HEENT: NC@2LPM NECK: R sided permacath. CHEST/LUNGS: CTAB on room air HEART/CARDIOVASCULAR: RRR. No murmur, rubs or gallops appreciated. ABDOMEN: +BS. NT/ND. SKIN: No rashes noted. NEURO: No focal motor deficit. Follows all commands. MUSCULOSKELETAL: No joint effusion EXTREMITIES: No cyanosis, clubbing or edema. PSYCH: Cooperative. - Constitutional Vitals: Temp Pulse Resp BP Pulse Ox 98.1 F 76 18 109/62 99 05/07/22 05:54 05/07/22 05:54 05/07/22 05:54 05/07/22 05:54 05/07/22 08:23 General appearance: Present: no acute distress, well-nourished HEART Score - HEART Score Troponin: Troponin T 0.075 ng/mL (0.00-0.029) H 04/28/22 14:49 Results - Labs CBC & Chem 7: 05/01/22 06:22 05/01/22 06:22 Labs: Laboratory Last Values WBC 5.3 K/mm3 (4.5-11.0) 05/01/22 06:22 RBC 2.65 M/mm3 (3.65-5.03) L 05/01/22 06:22 Hgb 8.2 gm/dl (10.1-14.3) L 05/01/22 06:22 Hct 25.9 % (30.3-42.9) L 05/01/22 06:22 MCV 98 fl (79-97) H 05/01/22 06:22 MCH 31 pg (28-32) 05/01/22 06:22 MCHC 32 % (30-34) 05/01/22 06:22 RDW 16.7 % (13.2-15.2) H 05/01/22 06:22 Plt Count 172 K/mm3 (140-440) 05/01/22 06:22 Lymph % (Auto) 5.9 % (13.4-35.0) L 05/01/22 06:22 [place] % (Auto) 4.1 % (0.0-7.3) 05/01/22 06:22 Eos % (Auto) 0.0 % (0.0-4.3) 05/01/22 06:22 Baso % (Auto) 0.1 % (0.0-1.8) 05/01/22 06:22 Lymph # (Auto) 0.3 K/mm3 (1.2-5.4) L 05/01/22 06:22 [place] # (Auto) 0.2 K/mm3 (0.0-0.8) 05/01/22 06:22 Eos # (Auto) 0.0 K/mm3 (0.0-0.4) 05/01/22 06:22 Baso # (Auto) 0.0 K/mm3 (0.0-0.1) 05/01/22 06:22 Add Manual Diff Complete 04/30/22 07:21 Total Counted 100 04/30/22 07:21 Seg Neutrophils % 89.9 % (40.0-70.0) H 05/01/22 06:22 Seg Neuts % (Manual) 93.0 % (40.0-70.0) H 04/30/22 07:21 Band Neutrophils % 0 % 04/30/22 07:21 Lymphocytes % (Manual) 6.0 % (13.4-35.0) L 04/30/22 07:21 Reactive Lymphs % (Man) 0 % 04/30/22 07:21 Monocytes % (Manual) 0 % (0.0-7.3) 04/30/22 07:21 Eosinophils % (Manual) 0 % (0.0-4.3) 04/30/22 07:21 Basophils % (Manual) 0 % (0.0-1.8) 04/30/22 07:21 Metamyelocytes % 0 % 04/30/22 07:21 Myelocytes % 1.0 % 04/30/22 07:21 Promyelocytes % 0 % 04/30/22 07:21 Blast Cells % 0 % 04/30/22 07:21 Nucleated RBC % Not Reportable 04/30/22 07:21 Seg Neutrophils # 4.8 K/mm3 (1.8-7.7) 05/01/22 06:22 Seg Neutrophils # Man 7.4 K/mm3 (1.8-7.7) 04/30/22 07:21 Band Neutrophils # 0.0 K/mm3 04/30/22 07:21 Lymphocytes # (Manual) 0.5 K/mm3 (1.2-5.4) L 04/30/22 07:21 Abs React Lymphs (Man) 0.0 K/mm3 04/30/22 07:21 Monocytes # (Manual) 0.0 K/mm3 (0.0-0.8) 04/30/22 07:21 Eosinophils # (Manual) 0.0 K/mm3 (0.0-0.4) 04/30/22 07:21 Basophils # (Manual) 0.0 K/mm3 (0.0-0.1) 04/30/22 07:21 Metamyelocytes # 0.0 K/mm3 04/30/22 07:21 Myelocytes # 0.1 K/mm3 04/30/22 07:21 Promyelocytes # 0.0 K/mm3 04/30/22 07:21 Blast Cells # 0.0 K/mm3 04/30/22 07:21 WBC Morphology Not Reportable 04/30/22 07:21 Hypersegmented Neuts Not Reportable 04/30/22 07:21 Hyposegmented Neuts Not Reportable 04/30/22 07:21 Hypogranular Neuts Not Reportable 04/30/22 07:21 Smudge Cells Not Reportable 04/30/22 07:21 Toxic Granulation Not Reportable 04/30/22 07:21 Toxic Vacuolation Not Reportable 04/30/22 07:21 Dohle Bodies Not Reportable 04/30/22 07:21 Pelger-Huet Anomaly Not Reportable 04/30/22 07:21 Kristi Rods Not Reportable 04/30/22 07:21 Platelet Estimate Consistent w auto 04/30/22 07:21 Clumped Platelets Not Reportable 04/30/22 07:21 Plt Clumps, EDTA Not Reportable 04/30/22 07:21 Large Platelets Not Reportable 04/30/22 07:21 Giant Platelets Not Reportable 04/30/22 07:21 Platelet Satelliting Not Reportable 04/30/22 07:21 Plt Morphology Comment Not Reportable 04/30/22 07:21 RBC Morphology Not Reportable 04/30/22 07:21 Dimorphic RBCs Not Reportable 04/30/22 07:21 Polychromasia Not Reportable 04/30/22 07:21 Hypochromasia Not Reportable 04/30/22 07:21 Poikilocytosis Not Reportable 04/30/22 07:21 Anisocytosis 1+ 04/30/22 07:21 Microcytosis Not Reportable 04/30/22 07:21 Macrocytosis Not Reportable 04/30/22 07:21 Spherocytes Not Reportable 04/30/22 07:21 Pappenheimer Bodies Not Reportable 04/30/22 07:21 Sickle Cells Not Reportable 04/30/22 07:21 Target Cells Not Reportable 04/30/22 07:21 Tear Drop Cells Not Reportable 04/30/22 07:21 Ovalocytes Not Reportable 04/30/22 07:21 Helmet Cells Not Reportable 04/30/22 07:21 [place] Bodies Not Reportable 04/30/22 07:21 [place] Rings Not Reportable 04/30/22 07:21 Herbie Cells Not Reportable 04/30/22 07:21 Bite Cells Not Reportable 04/30/22 07:21 Crenated Cell Not Reportable 04/30/22 07:21 Elliptocytes Not Reportable 04/30/22 07:21 Acanthocytes (Spur) Not Reportable 04/30/22 07:21 Rouleaux Not Reportable 04/30/22 07:21 Hemoglobin C Crystals Not Reportable 04/30/22 07:21 Schistocytes Not Reportable 04/30/22 07:21 Malaria parasites Not Reportable 04/30/22 07:21 [place] Bodies Not Reportable 04/30/22 07:21 Hem Pathologist Commnt No 04/30/22 07:21 PT 13.5 Sec. (12.2-14.9) 04/28/22 14:49 INR 0.91 (0.87-1.13) 04/28/22 14:49 APTT 33.8 Sec. (24.2-36.6) 04/28/22 14:49 D-Dimer 1200.26 ng/mlDDU (0-234) H 05/01/22 06:22 Sodium 141 mmol/L (137-145) 05/01/22 06:22 Potassium 3.9 mmol/L (3.6-5.0) 05/01/22 06:22 Chloride 101.5 mmol/L (98-107) 05/01/22 06:22 Carbon Dioxide 30 mmol/L (22-30) 05/01/22 06:22 Anion Gap 13 mmol/L 05/01/22 06:22 BUN 50 mg/dL (7-17) H 05/01/22 06:22 Creatinine 3.4 mg/dL (0.6-1.2) H 05/01/22 06:22 Estimated GFR 14 ml/min 05/01/22 06:22 BUN/Creatinine Ratio 15 % 05/01/22 06:22 Glucose 99 mg/dL (65-100) 05/01/22 06:22 POC Glucose 81 mg/dL (70-105) 05/05/22 08:20 Calcium 8.2 mg/dL (8.4-10.2) L 05/01/22 06:22 Ferritin 354.3 ng/mL (10.0-200.0) H 05/01/22 06:22 Total Bilirubin 0.20 mg/dL (0.1-1.2) 04/28/22 14:49 AST 26 units/L (5-40) 04/28/22 14:49 ALT 14 units/L (7-56) 04/28/22 14:49 Alkaline Phosphatase 70 units/L (35-129) 04/28/22 14:49 Lactate Dehydrogenase 211 units/L (91-180) H 05/01/22 06:22 Troponin T 0.075 ng/mL (0.00-0.029) H 04/28/22 14:49 C-Reactive Protein 2.10 mg/dL (0.00-1.30) H 05/01/22 06:22 NT-Pro-B Natriuret Pep 49375 pg/mL (0-900) H 04/28/22 14:49 Total Protein 5.6 g/dL (6.3-8.2) L 04/28/22 14:49 Albumin 2.8 g/dL (3.9-5) L 04/28/22 14:49 Albumin/Globulin Ratio 1.0 % 04/28/22 14:49 Triglycerides 128 mg/dL (2-149) 04/28/22 14:49 Cholesterol 154 mg/dL (50-199) 04/28/22 14:49 LDL Cholesterol Direct 63 mg/dL (50-130) 04/28/22 14:49 HDL Cholesterol 64 mg/dL (40-59) H 04/28/22 14:49 Cholesterol/HDL Ratio 2.40 % 04/28/22 14:49 Nasal Screen MRSA (PCR) Negative (Negative) 04/29/22 02:09 Coronavirus (PCR) Positive (Negative) A 04/30/22 10:00 SARS-CoV-2 (PCR) Positive (Negative) A 05/05/22 12:40 Hepatitis A IgM Ab Non-reactive (NonReactive) 04/29/22 10:27 Hep Bs Antigen Non-reactive (Negative) 04/29/22 10:27 Hep B Core IgM Ab Non-reactive (NonReactive) 04/29/22 10:27 Hepatitis C Antibody Non-reactive (NonReactive) 04/29/22 10:27 Pichardo/IV: Voiding Method Bedpan Active Medications - Current Medications Current Medications: Generic Name Dose Route Start Last Admin Trade Name Freq PRN Reason Stop Dose Admin Acetaminophen 650 mg 04/28/22 23:21 05/06/22 18:43 Acetaminophen 325 Mg Tab PO 650 mg Q4H PRN Administration Pain MILD(1-3)/Fever >100.5/KENDALL Albuterol 2.5 mg 04/28/22 23:21 Albuterol 2.5 Mg/3 Ml Nebu IH Q3HRT PRN Shortness Of Breath Ascorbic Acid 500 mg 04/29/22 10:00 05/06/22 10:03 Ascorbic Acid 500 Mg Tab PO 500 mg DAILY TOSHIA Administration Carvedilol 12.5 mg 04/29/22 10:00 05/06/22 21:23 Carvedilol 12.5 Mg Tab PO 12.5 mg BID TOSHIA Administration Dexamethasone 8 mg 05/05/22 10:00 05/06/22 10:03 Dexamethasone 4 Mg Tab PO 05/07/22 10:01 8 mg DAILY TOSHIA Administration Epoetin Ck-epbx 20,000 unit 05/01/22 14:10 05/01/22 17:20 Epoetin Ck-Epbx 20,000 Unit/1 Ml Vial IV 20,000 unit HOMER PRN Administration hemodialysis Famotidine 20 mg 04/29/22 10:00 05/06/22 10:03 Famotidine 20 Mg Tab PO 20 mg DAILY TOSHIA Administration Ferrous Sulfate 325 mg 04/29/22 10:00 05/06/22 10:03 Ferrous Sulfate 325 Mg Tab PO 325 mg DAILY TOSHIA Administration Guaifenesin 200 mg 04/29/22 18:23 05/05/22 06:11 Guaifenesin 100 Mg/5 Ml Oral Liqd PO 200 mg Q4H PRN Administration Cough Heparin Sodium (Porcine) 5,000 unit 04/29/22 06:00 05/07/22 05:17 Heparin 5,000 Unit/1 Ml Vial SUB-Q 5,000 unit Q8HR TOSHIA Administration Sodium Chloride 100 mls @ 999 mls/hr 04/29/22 10:30 Nacl 0.9% IV HOMER PRN Hypotension Levothyroxine Sodium 200 mcg 04/29/22 06:00 05/07/22 05:17 Levothyroxine 100 Mcg Tab PO 200 mcg QAM@0600 TOSHIA Administration Morphine Sulfate 2 mg 04/28/22 23:21 Morphine 2 Mg/1 Ml Inj IV Q4H PRN Pain, Moderate (4-6) Morphine Sulfate 4 mg 04/28/22 23:21 Morphine 4 Mg/1 Ml Inj IV Q4H PRN Pain , Severe (7-10) Nifedipine 60 mg 05/03/22 10:00 05/06/22 21:23 Nifedipine Xl 60 Mg Tab PO 60 mg Q12HR TOSHIA Administration Ondansetron HCl 4 mg 04/28/22 23:21 Ondansetron 4 Mg/2 Ml Inj IV Q8H PRN Nausea And Vomiting Sevelamer Carbonate 800 mg 04/29/22 08:00 05/06/22 17:44 Sevelamer Carbonate 800 Mg Tab PO 800 mg TIDWM TOSHIA Administration Sodium Chloride 10 ml 04/29/22 10:00 05/06/22 21:23 Sodium Chloride 0.9% 10 Ml Flush Syringe IV 10 ml BID TOSHIA Administration Sodium Chloride 10 ml 04/28/22 23:21 Sodium Chloride 0.9% 10 Ml Flush Syringe IV PRN PRN LINE FLUSH Nutrition/Malnutrition Assess - Dietary Evaluation Nutrition/Malnutrition Findings: Nutrition Notes Start: 04/29/22 12:04 Freq: Status: Active Protocol: Document 05/06/22 09:59 ASHISH (Rec: 05/06/22 10:17 ASHISH [id number]) Nutrition Notes Initial or Follow up Reassessment Current Diagnosis CKD (stage V CKD),Hypertension ,Respiratory Failure, Malnutrition Other Pertinent Diagnosis ESRD+HD, s/p COVID-19/ Pneumonia, Anemia, Hypothyroidism. Current Diet Cardiac Diet (since B 04/28), Cardiac -Renal- Diet+D Suppl ( from D 04/29). Labs/Tests 05/06: BUN 50, Crea 3.4, Ca 8. 2. Pertinent Medications 05/06: Vit C, FeSO4, Levothyroxine, Renvela, others nutritionally unremarkable. Height 5 ft 3 in Weight 72.3 kg [place] Body Weight (kg) 52.27 BMI 28.2 Weight change and time frame 0.275 Body weight loss reported in 1 week. Weight Status Overweight Subjective/Other Information RD consult for routine F/U on dietary advancement. Diet continues as prescribed, Pt's PO intake of meals has been Good (100%) and well tolerated, according to ADL notes. Pt is on Nasal Cannula, O2 saturation @ 98%, according to Physical Assessment History notes. Pt shows an unspecified area of concern for skin risk at the time, according to Physical Assessment History notes. Plans for discharge on 05/06, as Pt is medically cleared, according to Progress notes. Percent of energy/protein needs met: Prescribed Cardiac -Renal- Diet provides for energy/ protein needs (2,230 Kcal/85 g ) during LOS; additionally, Dietary Supplements will compensate for possible poor or insufficient PO intake of meals with 850 Kcal and 38 g of protein. Burn Absent Trauma Absent GI Symptoms None Food Allergy No Skin Integrity/Comment Unspecified area of concern. Current % PO Good (75-100%) Minimum of two criteria No Fluid Accumulation N/A Reduced [place]olog[place] Maker Strength N/A (non-severe) Protein-Calorie Malnutrition N\A #2 Nutrition Diagnosis Altered nutrition-related laboratory values Comments: 05/06: BUN 50, Crea 3.4, Ca 8. 2. Diagnosis Progress(for reassessment Continues documentation) #1 Nutrition Diagnosis Predicted suboptimal energy intake Comments: Diet continues as prescribed, Pt's PO intake of meals has been Good (100%) and well tolerated, according to ADL notes. Diagnosis Progress(for reassessment Resolved documentation) Is patient on ventilator? No Is Patient Ambulatory and/or Out of Bed No REE-([facility]-confined to bed) 1525.344 Kcal/Kg value to use for calculation 19 Approximate Energy Requirements Using 1374 kcal/Kg Calculation Used for Recommendations Kcal/kg Additional Notes Protein: >1.2 g/Kg ABW; >88 g/ day. Fluids: 1 ml/Kcal, or as per MD. Nutrition Intervention Change Diet Order: Continue Renal restriction to Cardiac Diet as tolerated. Add Supplement/Snack (indicate name/kcal Discontinue. /protein ) Goal #1 Help reach and maintain acceptable chemistry lab values during LOS. Goal #2 Adjust the dietary intervention to better serve Pt's needs and clinical conditions during LOS. Follow-Up By: 05/13/22 Additional Comments Continue monitoring food tolerance, %PO intake of meals , and BM.
[2022-05-07] MEDS: FERROUS SULFATE 325 MG TAB PO SCH (10:53)
[2022-05-07] MEDS: NIFEdipine XL 60 MG TAB PO SCH ×3 (10:53→21:28)
[2022-05-07] MEDS: SEVELAMER CARBONATE 800 MG TAB PO SCH ×3 (10:53→16:55)
[2022-05-07] MEDS: FAMOTIDINE 20 MG TAB PO SCH (10:53)
[2022-05-07] MEDS: DEXAMETHASONE 4 MG TAB PO SCH (10:53)
[2022-05-07] MEDS: ASCORBIC ACID 500 MG TAB PO SCH (10:55)
[2022-05-07] MEDS: carvediloL 12.5 MG TAB PO SCH ×2 (10:55→21:41)
[2022-05-07 12:26] LABS: Calcium 8.1 mg/dL (8.4-10.2)
--- NOTE | 2022-05-07 18:21 | Progress Note ---
Assessment and Plan This is a 61 year old woman who presents with dyspnea, COVID-19 # ESRD: continue HD // - daily labs - renally dose meds - avoid nephrotoxins - renal diet - verbal consent obtained for HD # Anemia: ESAs with HD TIW # HTN: UF as tolerated, aim net negative as able. BP stable # Secondary Hyperparathyroidism: continue home binders as needed, vitamin D analogs prn # COVID-19 Pneumonia, Respiratory Failure: improving, pulmonary/ID also following # CHF: note BNP 13K on admission, UF as tolerated, goal net negative Subjective Date of service: 05/07/22 Principal diagnosis: Covid pneumonia Interval history: Vitals, labs, I/O reviewed. Objective - Exam Narrative Exam: Covid positive, exam deferred for PPE conservation, primary team exam reviewed. - Vital Signs Vital signs: Vital Signs - 12hr 05/07/22 05/07/22 05/07/22 08:23 10:55 14:44 Temperature 97.8 F Pulse Rate 73 Respiratory 20 18 Rate Blood Pressure 99/46 [Left] O2 Sat by Pulse 99 98 98 Oximetry - Lab 05/01/22 06:22 05/07/22 11:26 Most recent lab results Calcium 8.1 mg/dL (8.4-10.2) L 05/07/22 11:26 Medications & Allergies - Medications Allergies/Adverse Reactions: Allergies NSAIDS (Non-Steroidal Anti-Inflamma Allergy (Verified 04/28/22 13:30) Rash Sulfa (Sulfonamide Antibiotics) Allergy (Verified 04/28/22 13:30) Rash Home Medications: Home Medications Medication Instructions Recorded Confirmed Last Taken Type Ascorbic Acid [Vitamin C] 500 mg PO DAILY 04/28/22 04/28/22 Unknown History Ferrous Sulfate [Ferrous Sulfate 324 mg PO DAILY 04/28/22 04/28/22 Unknown History 324 MG] Levothyroxine Sodium 200 mcg PO DAILY 04/28/22 04/28/22 Unknown History [Levothyroxine] Venlafaxine [Effexor 37.5mg tab] 37.5 mg PO QDAY 04/28/22 04/28/22 Unknown History carvediloL [Coreg] 12.5 mg PO BID 04/28/22 04/28/22 Unknown History sevelamer HCL [Sevelamer HCl] 800 mg PO TID 04/28/22 04/28/22 Unknown History Benzonatate [Tessalon Perles] 100 mg PO Q8HR PRN #30 cap 05/05/22 Unknown Rx NIFEdipine XL [Procardia Xl] 60 mg PO Q12HR #60 tablet 05/05/22 Unknown Rx dexAMETHasone [Decadron] 8 mg PO DAILY #3 tablet 05/05/22 Unknown Rx Active Medications: Generic Name Dose Route Start Last Admin Trade Name Freq PRN Reason Stop Dose Admin Acetaminophen 650 mg 04/28/22 23:21 05/06/22 18:43 Acetaminophen 325 Mg Tab PO 650 mg Q4H PRN Administration Pain MILD(1-3)/Fever >100.5/KENDALL Albuterol 2.5 mg 04/28/22 23:21 Albuterol 2.5 Mg/3 Ml Nebu IH Q3HRT PRN Shortness Of Breath Ascorbic Acid 500 mg 04/29/22 10:00 05/07/22 10:55 Ascorbic Acid 500 Mg Tab PO 500 mg DAILY TOSHIA Administration Carvedilol 12.5 mg 04/29/22 10:00 05/07/22 10:55 Carvedilol 12.5 Mg Tab PO Not Given BID TOSHIA Epoetin Ck-epbx 20,000 unit 05/01/22 14:10 05/01/22 17:20 Epoetin Ck-Epbx 20,000 Unit/1 Ml Vial IV 20,000 unit HOMER PRN Administration hemodialysis Famotidine 20 mg 04/29/22 10:00 05/07/22 10:53 Famotidine 20 Mg Tab PO 20 mg DAILY TOSHIA Administration Ferrous Sulfate 325 mg 04/29/22 10:00 05/07/22 10:53 Ferrous Sulfate 325 Mg Tab PO 325 mg DAILY TOSHIA Administration Guaifenesin 200 mg 04/29/22 18:23 05/05/22 06:11 Guaifenesin 100 Mg/5 Ml Oral Liqd PO 200 mg Q4H PRN Administration Cough Heparin Sodium (Porcine) 5,000 unit 04/29/22 06:00 05/07/22 13:27 Heparin 5,000 Unit/1 Ml Vial SUB-Q 5,000 unit Q8HR TOSHIA Administration Sodium Chloride 100 mls @ 999 mls/hr 04/29/22 10:30 Nacl 0.9% IV HOMER PRN Hypotension Levothyroxine Sodium 200 mcg 04/29/22 06:00 05/07/22 05:17 Levothyroxine 100 Mcg Tab PO 200 mcg QAM@0600 TOSHIA Administration Morphine Sulfate 2 mg 04/28/22 23:21 Morphine 2 Mg/1 Ml Inj IV Q4H PRN Pain, Moderate (4-6) Morphine Sulfate 4 mg 04/28/22 23:21 Morphine 4 Mg/1 Ml Inj IV Q4H PRN Pain , Severe (7-10) Nifedipine 60 mg 05/03/22 10:00 05/07/22 10:55 Nifedipine Xl 60 Mg Tab PO Not Given Q12HR [facility] Ondansetron HCl 4 mg 04/28/22 23:21 Ondansetron 4 Mg/2 Ml Inj IV Q8H PRN Nausea And Vomiting Sevelamer Carbonate 800 mg 04/29/22 08:00 05/07/22 16:55 Sevelamer Carbonate 800 Mg Tab PO 800 mg TIDWM [facility] Administration Sodium Chloride 10 ml 04/29/22 10:00 05/07/22 10:54 Sodium Chloride 0.9% 10 Ml Flush Syringe IV Not Given BID [facility] Sodium Chloride 10 ml 04/28/22 23:21 Sodium Chloride 0.9% 10 Ml Flush Syringe IV PRN PRN LINE FLUSH
[2022-05-07] MEDS: ACETAMINOPHEN 325 MG TAB PO PRN (21:28)
[2022-05-08] MEDS: LEVOTHYROXINE 100 MCG TAB PO SCH (05:43)
[2022-05-08] MEDS: HEPARIN 5,000 UNIT/1 ML VIAL SUB-Q SCH ×3 (05:43→21:49)
[2022-05-08] MEDS: SEVELAMER CARBONATE 800 MG TAB PO SCH ×3 (10:08→16:25)
[2022-05-08] MEDS: FAMOTIDINE 20 MG TAB PO SCH (10:08)
[2022-05-08] MEDS: NIFEdipine XL 60 MG TAB PO SCH ×2 (10:08→21:48)
[2022-05-08] MEDS: ASCORBIC ACID 500 MG TAB PO SCH (10:08)
[2022-05-08] MEDS: FERROUS SULFATE 325 MG TAB PO SCH (10:08)
[2022-05-08] MEDS: carvediloL 12.5 MG TAB PO SCH ×2 (10:08→21:48)
--- NOTE | 2022-05-08 10:27 | Discharge Summary ---
Providers - Providers Date of Admission: 04/28/22 22:37 Date of discharge: 05/08/22 Attending physician: TATA PATEL MD 04/28/22 23:21 Consult to Physician [CONS] Routine Comment: Consulting Provider: FAYE FRANCO Physician Instructions: Reason For Exam: covid 04/29/22 09:42 Consult to Physician [CONS] Routine Comment: Consulting Provider: MAYI FRY Physician Instructions: Reason For Exam: ESRD management 04/29/22 12:42 Consult to Physician [CONS] Routine Comment: Consulting Provider: BJ INTERIANO Physician Instructions: Reason For Exam: HFNC management + COVID pneumonia Primary care physician: RAQUEL GAR Hospitalization Reason for admission: Acute hypoxic respiratory failure, COVID-19 pneumonia Condition: Serious Hospital course: Patient is a 61-year-old female past medical history of ESRD on hemodialysis, hypertension, hypothyroidism, and mild protein caloric malnutrition who presented to the ED with complaints of shortness of breath that had started approximately 2 days prior. The patient denied any chest pain, fever, chills, extended travel, or sick contacts. The patient did endorse that exertion worsens her dyspnea. [facility] prior to presentation, and it was there that she was found to be confirmed positive for COVID-19. In the ED, the patient was hemodynamically stable and saturating 94% on room air. Patient's labs were relatively unremarkable. Patient was admitted for management of COVID-19 pneumonia with acute hypoxic respiratory failure. The patient at 1 point required high flow nasal cannula. She was started on daily steroids and azithromycin 250 mg daily x5 days. Pulmonology was consulted for further management. Nephrology was consulted for management of hemodialysis needs. Patient is since been weaned down to 2 L nasal cannula, the patient is hemodynamically stable. The patient is medically clear for discharge. Disposition: [facility] Final Discharge Diagnosis (Prints w/discharge instructions): COVID-19 pneumonia, acute hypoxic respiratory failure, acute heart failure ruled out, elevated D- dimer, ESRD on hemodialysis, macrocytic anemia, hypothyroidism, mild protein caloric malnutrition Time spent for discharge: 40 minutes Core Measure Documentation - Palliative Care Palliative Care/ Comfort Measures: Not Applicable - Core Measures Any of the following diagnoses?: none Exam - Physical Exam Narrative exam: GENERAL: Well-developed well-nourished. In no acute distress. HEENT: NC@2LPM NECK: R sided permacath. CHEST/LUNGS: CTAB on room air HEART/CARDIOVASCULAR: RRR. No murmur, rubs or gallops appreciated. ABDOMEN: +BS. NT/ND. SKIN: No rashes noted. NEURO: No focal motor deficit. Follows all commands. MUSCULOSKELETAL: No joint effusion EXTREMITIES: No cyanosis, clubbing or edema. PSYCH: Cooperative. - Constitutional Vitals: Temp Pulse Resp BP Pulse Ox 98.6 F 71 18 137/60 100 05/08/22 05:45 05/08/22 05:45 05/08/22 05:45 05/08/22 05:45 05/08/22 08:30 Plan Care Plan Goals: Patient is medically cleared for discharge. Assessment: Patient is a 61-year-old female past medical history of ESRD on hemodialysis, hypertension, hypothyroidism, and mild protein caloric malnutrition who presented to the ED with complaints of shortness of breath that had started approximately 2 days prior. The patient denied any chest pain, fever, chills, extended travel, or sick contacts. The patient did endorse that exertion worsens her dyspnea. [facility] to presentation, and it was there that she was found to be confirmed positive for COVID-19. In the ED, the patient was hemodynamically stable and saturating 94% on room air. Patient's labs were relatively unremarkable. Patient was admitted for management of COVID-19 pneumonia with acute hypoxic respiratory failure. The patient at 1 point required high flow nasal cannula. She was started on daily steroids and azithromycin 250 mg daily x5 days. Pulmonology was consulted for further management. Nephrology was consulted for management of hemodialysis needs. Patient is since been weaned down to 2 L nasal cannula, the patient is hemodynamically stable. The patient is medically clear for discharge. Follow up with: ARQUEL GAR MD [Primary Care Provider] - 3-5 Days Prescriptions: NIFEdipine XL [Procardia Xl] 60 mg PO Q12HR #60 tablet Benzonatate [Tessalon Perles] 100 mg PO Q8HR PRN #30 cap PRN Reason: Cough
--- NOTE | 2022-05-08 12:56 | Progress Note ---
Assessment and Plan This is a 61 year old woman who presents with dyspnea, COVID-19 # ESRD: continue HD // - daily labs - renally dose meds - avoid nephrotoxins - renal diet - verbal consent obtained for HD # Anemia: ESAs with HD TIW # HTN: UF as tolerated, aim net negative as able. BP stable # Secondary Hyperparathyroidism: continue home binders as needed, vitamin D analogs prn # COVID-19 Pneumonia, Respiratory Failure: improving, pulmonary/ID also following # CHF: note BNP 13K on admission, UF as tolerated, goal net negative Subjective Date of service: 05/08/22 Principal diagnosis: Covid pneumonia Interval history: Vitals, labs, I/O reviewed. Objective - Exam Narrative Exam: Covid positive, exam deferred for PPE conservation, primary team exam reviewed. - Vital Signs Vital signs: Vital Signs - 12hr 05/08/22 05/08/22 05/08/22 05:45 08:06 08:30 Temperature 98.6 F Pulse Rate 71 Respiratory 18 Rate Blood Pressure 137/60 O2 Sat by Pulse 100 98 100 Oximetry 05/08/22 11:01 Temperature 98.0 F Pulse Rate 77 Respiratory 16 Rate Blood Pressure 118/62 O2 Sat by Pulse 98 Oximetry - Lab 05/01/22 06:22 05/07/22 11:26 Most recent lab results Calcium 8.1 mg/dL (8.4-10.2) L 05/07/22 11:26 Medications & Allergies - Medications Allergies/Adverse Reactions: Allergies NSAIDS (Non-Steroidal Anti-Inflamma Allergy (Verified 04/28/22 13:30) Rash Sulfa (Sulfonamide Antibiotics) Allergy (Verified 04/28/22 13:30) Rash Home Medications: Home Medications Medication Instructions Recorded Confirmed Last Taken Type Ascorbic Acid [Vitamin C] 500 mg PO DAILY 04/28/22 04/28/22 Unknown History Ferrous Sulfate [Ferrous Sulfate 324 mg PO DAILY 04/28/22 04/28/22 Unknown History 324 MG] Levothyroxine Sodium 200 mcg PO DAILY 04/28/22 04/28/22 Unknown History [Levothyroxine] Venlafaxine [Effexor 37.5mg tab] 37.5 mg PO QDAY 04/28/22 04/28/22 Unknown History carvediloL [Coreg] 12.5 mg PO BID 04/28/22 04/28/22 Unknown History sevelamer HCL [Sevelamer HCl] 800 mg PO TID 04/28/22 04/28/22 Unknown History Benzonatate [Tessalon Perles] 100 mg PO Q8HR PRN #30 cap 05/05/22 Unknown Rx NIFEdipine XL [Procardia Xl] 60 mg PO Q12HR #60 tablet 05/05/22 Unknown Rx Active Medications: Generic Name Dose Route Start Last Admin Trade Name Freq PRN Reason Stop Dose Admin Acetaminophen 650 mg 04/28/22 23:21 05/07/22 21:28 Acetaminophen 325 Mg Tab PO 650 mg Q4H PRN Administration Pain MILD(1-3)/Fever >100.5/KENDALL Albuterol 2.5 mg 04/28/22 23:21 Albuterol 2.5 Mg/3 Ml Nebu IH Q3HRT PRN Shortness Of Breath Ascorbic Acid 500 mg 04/29/22 10:00 05/08/22 10:08 Ascorbic Acid 500 Mg Tab PO 500 mg DAILY TOSHIA Administration Carvedilol 12.5 mg 04/29/22 10:00 05/08/22 10:08 Carvedilol 12.5 Mg Tab PO 12.5 mg BID TOSHIA Administration Epoetin Ck-epbx 20,000 unit 05/01/22 14:10 05/01/22 17:20 Epoetin Ck-Epbx 20,000 Unit/1 Ml Vial IV 20,000 unit HOMER PRN Administration hemodialysis Famotidine 20 mg 04/29/22 10:00 05/08/22 10:08 Famotidine 20 Mg Tab PO 20 mg DAILY TOSHIA Administration Ferrous Sulfate 325 mg 04/29/22 10:00 05/08/22 10:08 Ferrous Sulfate 325 Mg Tab PO 325 mg DAILY TOSHIA Administration Guaifenesin 200 mg 04/29/22 18:23 05/05/22 06:11 Guaifenesin 100 Mg/5 Ml Oral Liqd PO 200 mg Q4H PRN Administration Cough Heparin Sodium (Porcine) 5,000 unit 04/29/22 06:00 05/08/22 05:43 Heparin 5,000 Unit/1 Ml Vial SUB-Q 5,000 unit Q8HR TOSHIA Administration Sodium Chloride 100 mls @ 999 mls/hr 04/29/22 10:30 Nacl 0.9% IV HOMER PRN Hypotension Levothyroxine Sodium 200 mcg 04/29/22 06:00 05/08/22 05:43 Levothyroxine 100 Mcg Tab PO 200 mcg QAM@0600 TOSHIA Administration Morphine Sulfate 2 mg 04/28/22 23:21 Morphine 2 Mg/1 Ml Inj IV Q4H PRN Pain, Moderate (4-6) Morphine Sulfate 4 mg 04/28/22 23:21 Morphine 4 Mg/1 Ml Inj IV Q4H PRN Pain , Severe (7-10) Nifedipine 60 mg 05/03/22 10:00 05/08/22 10:08 Nifedipine Xl 60 Mg Tab PO 60 mg Q12HR TOSHIA Administration Ondansetron HCl 4 mg 04/28/22 23:21 Ondansetron 4 Mg/2 Ml Inj IV Q8H PRN Nausea And Vomiting Sevelamer Carbonate 800 mg 04/29/22 08:00 05/08/22 10:08 Sevelamer Carbonate 800 Mg Tab PO 800 mg TIDWM TOSHIA Administration Sodium Chloride 10 ml 04/29/22 10:00 05/08/22 10:08 Sodium Chloride 0.9% 10 Ml Flush Syringe IV 10 ml BID TOSHIA Administration Sodium Chloride 10 ml 04/28/22 23:21 Sodium Chloride 0.9% 10 Ml Flush Syringe IV PRN PRN LINE FLUSH
[2022-05-08] MEDS: ACETAMINOPHEN 325 MG TAB PO PRN (16:25)
[2022-05-08] MEDS: EPOETIN ALFA-EPBX 20,000 UNIT/1 ML VIAL IV PRN (21:30)
[2022-05-08 21:49] VITALS: BP 142/70
== END 2022-05-09 02:40 | DRG 177 ==
LOC: ED 13:15 → 3A 22:37
PROVIDERS: ADMIT Hospitalist; ATTEND Student in an Organized Health Care Education/Training Program
PROC: 5A0945A Assistance with Respiratory Ventilation, 24-96 Consecutive Hours, High Flow/Velocity Cannula (ICD-10-PCS; principal; 2022-04-28)
PROC: 5A1D70Z Performance of Urinary Filtration, Intermittent, Less than 6 Hours Per Day (ICD-10-PCS; 2022-04-29)
PROC: XW033H5 Introduction of Tocilizumab into Peripheral Vein, Percutaneous Approach, New Technology Group 5 (ICD-10-PCS; 2022-04-30)
PROC: 5A1D70Z Performance of Urinary Filtration, Intermittent, Less than 6 Hours Per Day (ICD-10-PCS; 2022-05-01)
PROC: 5A1D70Z Performance of Urinary Filtration, Intermittent, Less than 6 Hours Per Day (ICD-10-PCS; 2022-05-03)
PROC: 5A1D70Z Performance of Urinary Filtration, Intermittent, Less than 6 Hours Per Day (ICD-10-PCS; 2022-05-06)
PROC: 5A1D70Z Performance of Urinary Filtration, Intermittent, Less than 6 Hours Per Day (ICD-10-PCS; 2022-05-08)
DX: U07.1 COVID-19 (principal); J12.82 Pneumonia due to coronavirus disease 2019; J96.01 Acute respiratory failure with hypoxia; N18.6 End stage renal disease; I13.2 Hypertensive heart and chronic kidney disease with heart failure and with stage 5 chronic kidney disease, or end stage renal disease; E44.1 Mild protein-calorie malnutrition; N25.81 Secondary hyperparathyroidism of renal origin; Z99.2 Dependence on renal dialysis; D53.9 Nutritional anemia, unspecified; E03.9 Hypothyroidism, unspecified; I50.9 Heart failure, unspecified; Z68.28 Body mass index [BMI] 28.0-28.9, adult; Z88.2 Allergy status to sulfonamides; Z82.49 Family history of ischemic heart disease and other diseases of the circulatory system; Z88.8 Allergy status to other drugs, medicaments and biological substances
CPT/HCPCS: 36415; 71045; 80048; 80053; 80061; 80074; 82728; 82962; 83615; 83880; 84484; 85007; 85025; 85379; 85610; 85730; 86140; 87040; 87641; 93005; 93306; 93970; 94640; 94644; 94760; G0378; C8929; J0885; J1100; J1644; J1940; J2930; J3262; J3475; J8540; U0003

== ENCOUNTER 2022-05-12 19:51 | Inpatient (IN) | payer MEDICARE ==
--- NOTE | 2022-05-12 21:44 | Emergency Department Report ---
HPI - General Chief Complaint: Recheck/Abnormal Lab/Rx PUI?: No Time Seen by Provider: 05/12/22 21:18 - HPI HPI: 61-year-old morbidly obese female with multiple medical comorbidities including end-stage renal disease on hemodialysis, Thursday, presents stating she wants dialysis. Patient states she is COVID-positive. She tested +9 days ago and had a repeat test per her verbal report, today, and still tested positive. She denies any symptoms at this time. She states that her rehab facility arranged for her to go to dialysis at a new facility that manages patients who are COVID-positive and need dialysis. She states "however they said they could not dialyze me because they did not have the right paperwork." She denies any muscle aches chest pain shortness of breath difficulty breathing palpitations weakness lightheadedness dizziness or any other symptoms. Pain currently 0 out of 10. Patient states she does not know the last time she underwent hemodialysis. ED Past Medical Hx - Past Medical History Hx Hypertension: Yes Hx Congestive Heart Failure: No Hx Diabetes: No Hx Renal Disease: Yes Hx Sickle Cell Disease: No Hx Asthma: No Hx COPD: No Additional medical history: ESRD, Hypothyroidism - Social History Smoking Status: Unknown if ever smoked - Medications Home Medications: Home Medications Medication Instructions Recorded Confirmed Last Taken Type Ascorbic Acid [Vitamin C] 500 mg PO DAILY 04/28/22 04/28/22 Unknown History Ferrous Sulfate [Ferrous Sulfate 324 mg PO DAILY 04/28/22 04/28/22 Unknown History 324 MG] Levothyroxine Sodium 200 mcg PO DAILY 04/28/22 04/28/22 Unknown History [Levothyroxine] Venlafaxine [Effexor 37.5mg tab] 37.5 mg PO QDAY 04/28/22 04/28/22 Unknown History carvediloL [Coreg] 12.5 mg PO BID 04/28/22 04/28/22 Unknown History sevelamer HCL [Sevelamer HCl] 800 mg PO TID 04/28/22 04/28/22 Unknown History Benzonatate [Tessalon Perles] 100 mg PO Q8HR PRN #30 cap 05/05/22 Unknown Rx NIFEdipine XL [Procardia Xl] 60 mg PO Q12HR #60 tablet 05/05/22 Unknown Rx ED Review of Systems ROS: Stated complaint: DIALYSIS Other details as noted in HPI Comment: All other systems reviewed and negative Physical Exam - Physical Exam Vital Signs: Vital Signs 05/12/22 05/12/22 05/12/22 19:57 20:04 20:15 Temperature 98.8 F Pulse Rate 88 77 Respiratory 18 22 17 Rate Blood Pressure 100/44 Blood Pressure 96/62 [Right] O2 Sat by Pulse 95 95 Oximetry 05/12/22 05/12/22 05/12/22 20:31 20:44 20:45 Temperature 98.4 F Pulse Rate 82 78 78 Respiratory 21 21 20 Rate Blood Pressure 100/44 100/44 100/44 Blood Pressure [Right] O2 Sat by Pulse 95 97 94 Oximetry General: Gen: Obese middle-age female, lying in bed, comfortable appearing, no drooling no stridor no respiratory distress, breathing unlabored, nontoxic-appearing HEENT: Normocephalic atraumatic pupils equally round and reactive to light extraocular muscles intact sclera anicteric Neck: Full range of motion, no midline spinal tenderness palpation, no JVD, no carotid bruits, no nuchal rigidity CVS: S1-S2 regular rate and rhythm with no gallops rubs or murmurs, chest wall nontender Pulmonary: Clear to auscultation bilaterally, no wheezes rales or rhonchi Abdomen: Soft nondistended nontender no guarding or rebound tenderness, no palpable deformities or step-offs, normal active bowel sounds, no hepatosplenomegaly, no pulsatile masses : Deferred Extremities: No cyanosis no clubbing no edema, intact distal peripheral pulses, Integumentary: Skin normal, no petechia no purpura no abscess no lacerations no evidence of trauma no evidence of infection Neuro: Patient is awake alert and oriented to person place time situation, mentating well, cranial nerves II through XII intact, no focal neurodeficits, sensation grossly tact Psych: Calm cooperative, mood affect normal ED Course Vital Signs 05/12/22 05/12/22 05/12/22 19:57 20:04 20:15 Temperature 98.8 F Pulse Rate 88 77 Respiratory 18 22 17 Rate Blood Pressure 100/44 Blood Pressure 96/62 [Right] O2 Sat by Pulse 95 95 Oximetry 05/12/22 05/12/22 05/12/22 20:31 20:44 20:45 Temperature 98.4 F Pulse Rate 82 78 78 Respiratory 21 21 20 Rate Blood Pressure 100/44 100/44 100/44 Blood Pressure [Right] O2 Sat by Pulse 95 97 94 Oximetry ED Medical Decision Making - Lab Data Result diagrams: 05/12/22 21:47 05/12/22 21:47 - Radiology Data Radiology results: report reviewed - Medical Decision Making 61-year-old obese female with multiple medical comorbidities brought in by EMS from her rehab facility stating that she is needing hemodialysis after having missed dialysis for several days in the setting of being COVID-positive. Vital signs stable. Serum labs reviewed. Patient has significant hyperuricemia and reports being symptomatic secondary to this. Case reviewed with admitting hospitalist, . He has agreed to accept the patient to inpatient service for admission and further management. Critical care attestation.: If time is entered above; I have spent that time in minutes in the direct care of this critically ill patient, excluding procedure time. ED Disposition Clinical Impression: Hyperuricemia, End-stage renal disease on hemodialysis Disposition: ADMITTED INPATIENT Is pt being admited?: Yes Does the pt Need Aspirin: No Condition: Stable Referrals: PRIMARY CARE, [Primary Care Provider] - 3-5 Days
[2022-05-12 21:58] LABS: Basophils # (Auto) 0.1 K/mm3 (0.0-0.1); Basophils % (Auto) 1.4 % (0.0-1.8); Eosinophils # (Auto) 0.1 K/mm3 (0.0-0.4); Eosinophils % (Auto) 0.7 % (0.0-4.3); Hematocrit 25.3 % (30.3-42.9); Hemoglobin 8.2 gm/dl (10.1-14.3); Lymphocytes % (Auto) 10.3 % (13.4-35.0); Mean Corpuscular HGB Conc 32 % (30-34); Mean Corpuscular Volume 97 fl (79-97); Monocytes # (Auto) 0.8 K/mm3 (0.0-0.8); Monocytes % (Auto) 8.7 % (0.0-7.3); Platelet Count 235 K/mm3 (140-440); Red Blood Count 2.61 M/mm3 (3.65-5.03); Red Cell Distribution Width 16.7 % (13.2-15.2)
[2022-05-12 22:15] LABS: Calcium 8.4 mg/dL (8.4-10.2)
--- NOTE | 2022-05-12 22:34 | XRay Report ---
CHEST 1 VIEW INDICATION / CLINICAL INFORMATION: COVID (+); esrd on h/d, p/w cough missed h/d x 6d. COMPARISON: Chest x-ray 04/28/2022 FINDINGS: SUPPORT DEVICES: Right-sided hemodialysis catheter stable in position tip near the cavoatrial junctio n. HEART / MEDIASTINUM: Heart size is within normal limits. Mediastinal contour demonstrates no signific ant abnormality. LUNGS / PLEURA: Near total clearing of the right lung base. Left lung remains clear. BONES: No significant osseous abnormality. ADDITIONAL FINDINGS: No significant additional findings. IMPRESSION: 1. Minimal residual atelectasis/scarring within the right lung base. No active cardiopulmonary diseas e. Signer Name: Miguel A Gonzales II, MD Signed: 05/12/2022 10:30 PM Workstation Name: [id number]
[2022-05-12] MEDS ORDERED: ONDANSETRON 4 MG/2 ML INJ IV PRN (23:17)
[2022-05-12] MEDS ORDERED: ALBUTEROL 2.5 MG/3 ML NEBU IH PRN (23:17)
[2022-05-12] MEDS ORDERED: MORPHINE 2 MG/1 ML INJ IV PRN (23:17)
[2022-05-12] MEDS ORDERED: MORPHINE 4 MG/1 ML INJ IV PRN (23:17)
--- NOTE | 2022-05-12 23:23 | History and Physical Report ---
History of Present Illness Date of examination: 05/12/22 Date of admission: 05/12/22 Chief complaint: Missed hemodialysis History of present illness: 61-year-old morbidly obese female with multiple medical comorbidities including end-stage renal disease on hemodialysis, Thursday, presents stating she wants dialysis. Patient states she is COVID-positive. She tested +9 days ago and had a repeat test per her verbal report, today, and still tested positive. She denies any symptoms at this time. She states that her rehab facility arranged for her to go to dialysis at a new facility that manages patients who are COVID-positive and need dialysis. She states "however they said they could not dialyze me because they did not have the right paperwork." She denies any muscle aches chest pain shortness of breath difficulty breathing palpitations weakness lightheadedness dizziness or any other symptoms. Pain currently 0 out of 10. Patient states she does not know the last time she underwent hemodialysis. In the emergency room patient BUN is 93 and creatinine 5.4. We are going to admit the patient reconsult nephrology for hemodialysis in the morning Past History Past Medical History: ESRD, hypertension, hypothyroidism, renal failure Past Surgical History: No surgical history Social history: no significant social history Family history: hypertension Medications and Allergies Allergies Allergy/AdvReac Type Severity Reaction Status Date / Time NSAIDS (Non-Steroidal Allergy Rash Verified 04/28/22 13:30 Anti-Inflamma Sulfa (Sulfonamide Allergy Rash Verified 04/28/22 13:30 Antibiotics) Home Medications Medication Instructions Recorded Confirmed Last Taken Type Ascorbic Acid [Vitamin C] 500 mg PO DAILY 04/28/22 04/28/22 Unknown History Ferrous Sulfate [Ferrous Sulfate 324 mg PO DAILY 04/28/22 04/28/22 Unknown History 324 MG] Levothyroxine Sodium 200 mcg PO DAILY 04/28/22 04/28/22 Unknown History [Levothyroxine] Venlafaxine [Effexor 37.5mg tab] 37.5 mg PO QDAY 04/28/22 04/28/22 Unknown Histo ry carvediloL [Coreg] 12.5 mg PO BID 04/28/22 04/28/22 Unknown History sevelamer HCL [Sevelamer HCl] 800 mg PO TID 04/28/22 04/28/22 Unknown History Benzonatate [Tessalon Perles] 100 mg PO Q8HR PRN #30 cap 05/05/22 Unknown Rx NIFEdipine XL [Procardia Xl] 60 mg PO Q12HR #60 tablet 05/05/22 Unknown Rx Active Meds: Active Medications Acetaminophen (Acetaminophen 325 Mg Tab) 650 mg PO Q4H PRN PRN Reason: Pain MILD(1-3)/Fever >100.5/KENDALL Ondansetron HCl (Ondansetron 4 Mg/2 Ml Inj) 4 mg IV Q8H PRN PRN Reason: Nausea And Vomiting Sodium Chloride (Sodium Chloride 0.9% 10 Ml Flush Syringe) 10 ml IV BID TOSHIA Sodium Chloride (Sodium Chloride 0.9% 10 Ml Flush Syringe) 10 ml IV PRN PRN PRN Reason: LINE FLUSH Review of Systems All systems: negative Constitutional: weakness Exam - Constitutional Vitals: Temp Pulse Resp BP Pulse Ox 98.4 F 78 20 100/44 94 05/12/22 20:44 05/12/22 20:45 05/12/22 20:45 05/12/22 20:45 05/12/22 20:45 General appearance: Present: no acute distress, well-nourished - EENT Eyes: Present: PERRL ENT: hearing intact, clear oral mucosa - Neck Neck: Present: supple, normal ROM - Respiratory Respiratory effort: normal Respiratory: bilateral: CTA - Cardiovascular Heart Sounds: Present: S1 & S2. Absent: rub, click - Extremities Extremities: pulses symmetrical, No edema Peripheral Pulses: within normal limits - Abdominal General gastrointestinal: Present: soft, non-tender, non-distended, normal bowel sounds Female genitourinary: Present: normal - Integumentary Integumentary: Present: clear, warm, dry - Musculoskeletal Musculoskeletal: gait normal, strength equal bilaterally - Psychiatric Psychiatric: appropriate mood/affect, intact judgment & insight - Neurologic Neurologic: CNII-XII intact, moves all extremities Results - Labs CBC & Chem 7: 05/12/22 21:47 05/12/22 21:47 Labs: Laboratory Last Values WBC 9.4 K/mm3 (4.5-11.0) 05/12/22 21:47 RBC 2.61 M/mm3 (3.65-5.03) L 05/12/22 21:47 Hgb 8.2 gm/dl (10.1-14.3) L 05/12/22 21:47 Hct 25.3 % (30.3-42.9) L 05/12/22 21:47 MCV 97 fl (79-97) 05/12/22 21:47 MCH 31 pg (28-32) 05/12/22 21:47 MCHC 32 % (30-34) 05/12/22 21:47 RDW 16.7 % (13.2-15.2) H 05/12/22 21:47 Plt Count 235 K/mm3 (140-440) 05/12/22 21:47 Lymph % (Auto) 10.3 % (13.4-35.0) L 05/12/22 21:47 Cole % (Auto) 8.7 % (0.0-7.3) H 05/12/22 21:47 Eos % (Auto) 0.7 % (0.0-4.3) 05/12/22 21:47 Baso % (Auto) 1.4 % (0.0-1.8) 05/12/22 21:47 Lymph # (Auto) 1.0 K/mm3 (1.2-5.4) L 05/12/22 21:47 Cole # (Auto) 0.8 K/mm3 (0.0-0.8) 05/12/22 21:47 Eos # (Auto) 0.1 K/mm3 (0.0-0.4) 05/12/22 21:47 Baso # (Auto) 0.1 K/mm3 (0.0-0.1) 05/12/22 21:47 Seg Neutrophils % 78.9 % (40.0-70.0) H 05/12/22 21:47 Seg Neutrophils # 7.4 K/mm3 (1.8-7.7) 05/12/22 21:47 Sodium 136 mmol/L (137-145) L 05/12/22 21:47 Potassium 4.6 mmol/L (3.6-5.0) 05/12/22 21:47 Chloride 101.9 mmol/L (98-107) 05/12/22 21:47 Carbon Dioxide 21 mmol/L (22-30) L 05/12/22 21:47 Anion Gap 18 mmol/L 05/12/22 21:47 BUN 93 mg/dL (7-17) H 05/12/22 21:47 Creatinine 5.4 mg/dL (0.6-1.2) H 05/12/22 21:47 Estimated GFR 8 ml/min 05/12/22 21:47 BUN/Creatinine Ratio 17 % 05/12/22 21:47 Glucose 107 mg/dL (65-100) H 05/12/22 21:47 Calcium 8.4 mg/dL (8.4-10.2) 05/12/22 21:47 Assessment and Plan VTE prophylaxis?: Mechanical Plan of care discussed with patient/family: Yes - Patient Problems (1) End-stage renal disease on hemodialysis Current Visit: Yes Status: Acute Plan to address problem: Admit the patient to the medical floor. Renal diet. Will consult nephrology for hemodialysis in the morning. Recheck BMP in the morning. Continue home medication (2) CHF (congestive heart failure) Current Visit: No Status: Acute Plan to address problem: Stable. Avoid fluid overload. Maintain input output. Daily weight. Hemodialysis in the morning (3) COVID-19 Current Visit: No Status: Acute Plan to address problem: Patient completed treatment for COVID-19. Oxygen by nasal cannula 3 L/min. DuoNeb via nebulizer every 4 hours. Albuterol via nebulizer every 4 hours as needed. COVID precaution. Consult infectious disease if needed (4) Hypothyroidism Current Visit: No Status: Acute Plan to address problem: Stable. We continue the home medication. (5) DVT prophylaxis Current Visit: No Status: Acute Plan to address problem: SCD for DVT prophylaxis. Pepcid 20 mg p.o. twice daily for GI prophylaxis. Patient is a full code
[2022-05-13] MEDS: IPRATROPIUM/ALBUTEROL SULFATE 3 ML AMPUL.NEB IH SCH ×2 (02:57→10:46)
--- NOTE | 2022-05-13 07:40 | Event Note ---
Date: 05/13/[address] Galindo last admission. She [facility] I reached out and confirmed she is their patient. Transfer renal care to [facility]
--- NOTE | 2022-05-13 09:36 | Consultation ---
History of Present Illness - Reason for Consult Consult date: 05/13/22 end stage renal disease - History of Present Illness Mrs. Martinez is a 61yo with ESRD on HD and COVID 19 infection who presented for outpatient dialysis at [facility] yesterday for outpatient hemodialysis. However, due to inadequate staffing at [facility], patient was unable to receive treatment and was transported back to the [facility]. Patient's sister notified [facility] of patient's inability to receive treatment. As patient last dialyzed on and next dialysis treatment would be on Thursday at [facility], it was advised that patient return to the hospital. Past History Past Medical History: ESRD, hypertension, hypothyroidism, renal failure Past Surgical History: No surgical history Social history: no significant social history Family history: hypertension Medications and Allergies Allergies Allergy/AdvReac Type Severity Reaction Status Date / Time NSAIDS (Non-Steroidal Allergy Rash Verified 04/28/22 13:30 Anti-Inflamma Sulfa (Sulfonamide Allergy Rash Verified 04/28/22 13:30 Antibiotics) Home Medications Medication Instructions Recorded Confirmed Last Taken Type Ascorbic Acid [Vitamin C] 500 mg PO DAILY 04/28/22 04/28/22 Unknown History Ferrous Sulfate [Ferrous Sulfate 324 mg PO DAILY 04/28/22 04/28/22 Unknown History 324 MG] Levothyroxine Sodium 200 mcg PO DAILY 04/28/22 04/28/22 Unknown History [Levothyroxine] Venlafaxine [Effexor 37.5mg tab] 37.5 mg PO QDAY 04/28/22 04/28/22 Unknown History carvediloL [Coreg] 12.5 mg PO BID 04/28/22 04/28/22 Unknown History sevelamer HCL [Sevelamer HCl] 800 mg PO TID 04/28/22 04/28/22 Unknown History Benzonatate [Tessalon Perles] 100 mg PO Q8HR PRN #30 cap 05/05/22 Unknown Rx NIFEdipine XL [Procardia Xl] 60 mg PO Q12HR #60 tablet 05/05/22 Unknown Rx Active Meds: Active Medications Acetaminophen (Acetaminophen 325 Mg Tab) 650 mg PO Q4H PRN PRN Reason: Pain MILD(1-3)/Fever >100.5/KENDALL Albuterol (Albuterol 2.5 Mg/3 Ml Nebu) 2.5 mg IH Q3HRT PRN PRN Reason: Shortness Of Breath Albuterol/Ipratropium (Ipratropium/Albuterol Sulfate 3 Ml Ampul.Neb) 1 ampul IH Q6HRT TOSHIA Famotidine (Famotidine 20 Mg Tab) 20 mg PO QAM TOSHIA Morphine Sulfate (Morphine 2 Mg/1 Ml Inj) 2 mg IV Q4H PRN PRN Reason: Pain, Moderate (4-6) Morphine Sulfate (Morphine 4 Mg/1 Ml Inj) 4 mg IV Q4H PRN PRN Reason: Pain , Severe (7-10) Ondansetron HCl (Ondansetron 4 Mg/2 Ml Inj) 4 mg IV Q8H PRN PRN Reason: Nausea And Vomiting Sodium Chloride (Sodium Chloride 0.9% 10 Ml Flush Syringe) 10 ml IV BID TOSHIA Sodium Chloride (Sodium Chloride 0.9% 10 Ml Flush Syringe) 10 ml IV PRN PRN PRN Reason: LINE FLUSH Review of Systems All systems: negative Exam - Vital Signs Vital signs: Vital Signs Temp Pulse Resp BP 98.8 F 88 18 96/62 05/12/22 19:57 05/12/22 19:57 05/12/22 19:57 05/12/22 19:57 - General Appearance General appearance: well-developed, well-nourished EENT: ATNC Respiratory: Other (isolation stethoscope not available in patient's room) Heart: other (isolation stethoscope not available in patient's room) Gastrointestinal: Absent: tenderness, distended Integumentary: no rash Neurologic: alert and oriented x3 Psychiatric: cooperative Results - Lab Results 05/13/22 11:41 05/13/22 11:41 Most recent lab results Calcium 8.4 mg/dL (8.4-10.2) 05/12/22 21:47 Assessment and Plan Impression: * End stage renal disease * Azotemia * Metabolic acidosis * COVID 19 infection * Anemia secondary to ESRD * Secondary hyperparathyroidism Plan: * Hemodialysis today * UF as tolerated * Epogen TIW prn * Renal/HD diet * Management of COVID 19 per primary team * Consult case management to confirm chair date/time
[2022-05-13] MEDS ORDERED: SODIUM CHLORIDE 0.9% 100 ML IV PRN (09:38)
[2022-05-13] MEDS: FAMOTIDINE 20 MG TAB PO SCH (10:29)
[2022-05-13] MEDS ORDERED: ALBUTEROL 8.5 GM MDI INHALATION IH PRN (10:46)
[2022-05-13 12:07] LABS: Basophils # (Auto) 0.1 K/mm3 (0.0-0.1); Basophils % (Auto) 1.2 % (0.0-1.8); Eosinophils # (Auto) 0.1 K/mm3 (0.0-0.4); Hematocrit 27.1 % (30.3-42.9); Hemoglobin 8.6 gm/dl (10.1-14.3); Lymphocytes # (Auto) 0.7 K/mm3 (1.2-5.4); Lymphocytes % (Auto) 11.6 % (13.4-35.0); Mean Corpuscular HGB Conc 32 % (30-34); Mean Corpuscular Volume 99 fl (79-97); Monocytes # (Auto) 0.4 K/mm3 (0.0-0.8); Monocytes % (Auto) 6.6 % (0.0-7.3); Platelet Count 237 K/mm3 (140-440); Red Blood Count 2.74 M/mm3 (3.65-5.03); Red Cell Distribution Width 16.8 % (13.2-15.2)
[2022-05-13 12:17] LABS: Calcium 8.8 mg/dL (8.4-10.2)
--- NOTE | 2022-05-13 18:13 | Progress Note ---
Assessment and Plan Assessment and plan: Assessment and Plan VTE prophylaxis?: Mechanical Plan of care discussed with patient/family: Yes - Patient Problems (1) End-stage renal disease on hemodialysis Current Visit: Yes Status: Acute Plan to address problem: Admit the patient to the medical floor. Renal diet. Will consult nephrology for hemodialysis in the morning. Recheck BMP in the morning. Continue home medication (2) CHF (congestive heart failure) Current Visit: No Status: Acute Plan to address problem: Stable. Avoid fluid overload. Maintain input output. Daily weight. Hemodialysis in the morning (3) Volume overload Patient needs emergent hemodialysis (4) Hypothyroidism Current Visit: No Status: Acute Plan to address problem: Stable. We continue the home medication. (5) DVT prophylaxis Current Visit: No Status: Acute Plan to address problem: SCD for DVT prophylaxis. Pepcid 20 mg p.o. twice daily for GI prophylaxis. Leo henning is a full code Disposition Plan: Discharge tomorrow after hemodialysis which was done around 6 PM today Total Time Spent with Patient (Minutes): 35 minutes History Interval history: 61-year-old morbidly obese female with multiple medical comorbidities including end-stage renal disease on hemodialysis, Thursday, presents stating she wants dialysis. Patient states she is COVID-positive. She tested +9 days ago and had a repeat test per her verbal report, today, and still tested positive. She denies any symptoms at this time. She states that her rehab facility arranged for her to go to dialysis at a new facility that manages patients who are COVID-positive and need dialysis. She states "however they said they could not dialyze me because they did not have the right paperwork." She denies any muscle aches chest pain shortness of breath difficulty breathing palpitations weakness lightheadedness dizziness or any other symptoms. Pain currently 0 out of 10. Patient states she does not know the last time she underwent hemodialysis. In the emergency room patient BUN is 93 and creatinine 5.4. We are going to admit the patient reconsult nephrology for hemodialysis in the morning Hospitalist Physical - Constitutional Vitals: Temp Pulse Resp BP Pulse Ox 98.4 F 91 H 16 129/75 89 05/12/22 20:44 05/13/22 12:50 05/13/22 12:50 05/13/22 12:50 05/13/22 12:50 General appearance: Present: no acute distress, well-nourished - Cardiovascular Heart rate: 78 Rhythm: regular - Extremities Extremities: no ischemia, pulses intact - Allied Health Allied health notes reviewed: nursing, case management Results - Labs CBC & Chem 7: 05/13/22 11:41 05/13/22 11:41 Labs: Laboratory Last Values WBC 6.1 K/mm3 (4.5-11.0) 05/13/22 11:41 RBC 2.74 M/mm3 (3.65-5.03) L 05/13/22 11:41 Hgb 8.6 gm/dl (10.1-14.3) L 05/13/22 11:41 Hct 27.1 % (30.3-42.9) L 05/13/22 11:41 MCV 99 fl (79-97) H 05/13/22 11:41 MCH 32 pg (28-32) 05/13/22 11:41 MCHC 32 % (30-34) 05/13/22 11:41 RDW 16.8 % (13.2-15.2) H 05/13/22 11:41 Plt Count 237 K/mm3 (140-440) 05/13/22 11:41 Lymph % (Auto) 11.6 % (13.4-35.0) L 05/13/22 11:41 [place] % (Auto) 6.6 % (0.0-7.3) 05/13/22 11:41 Eos % (Auto) 1.0 % (0.0-4.3) 05/13/22 11:41 Baso % (Auto) 1.2 % (0.0-1.8) 05/13/22 11:41 Lymph # (Auto) 0.7 K/mm3 (1.2-5.4) L 05/13/22 11:41 [place] # (Auto) 0.4 K/mm3 (0.0-0.8) 05/13/22 11:41 Eos # (Auto) 0.1 K/mm3 (0.0-0.4) 05/13/22 11:41 Baso # (Auto) 0.1 K/mm3 (0.0-0.1) 05/13/22 11:41 Seg Neutrophils % 79.6 % (40.0-70.0) H 05/13/22 11:41 Seg Neutrophils # 4.9 K/mm3 (1.8-7.7) 05/13/22 11:41 Sodium 141 mmol/L (137-145) 05/13/22 11:41 Potassium 5.3 mmol/L (3.6-5.0) H 05/13/22 11:41 Chloride 106.1 mmol/L (98-107) 05/13/22 11:41 Carbon Dioxide 22 mmol/L (22-30) 05/13/22 11:41 Anion Gap 18 mmol/L 05/13/22 11:41 BUN 95 mg/dL (7-17) H 05/13/22 11:41 Creatinine 5.8 mg/dL (0.6-1.2) H 05/13/22 11:41 Estimated GFR 7 ml/min 05/13/22 11:41 BUN/Creatinine Ratio 16 % 05/13/22 11:41 Glucose 82 mg/dL (65-100) 05/13/22 11:41 Calcium 8.8 mg/dL (8.4-10.2) 05/13/22 11:41 Active Medications - Current Medications Current Medications: Generic Name Dose Route Start Last Admin Trade Name Freq PRN Reason Stop Dose Admin Acetaminophen 650 mg 05/12/22 23:17 Acetaminophen 325 Mg Tab PO Q4H PRN Pain MILD(1-3)/Fever >100.5/KENDALL Albuterol 2 puff 05/13/22 10:46 Albuterol 8.5 Gm Mdi Inhalation IH Q4HRT PRN Shortness Of Breath Famotidine 20 mg 05/13/22 10:00 Famotidine 20 Mg Tab PO QAM TOSHIA Sodium Chloride 100 mls @ 999 mls/hr 05/13/22 09:38 Nacl 0.9% IV HOMER PRN Hypotension Morphine Sulfate 2 mg 05/12/22 23:17 Morphine 2 Mg/1 Ml Inj IV Q4H PRN Pain, Moderate (4-6) Morphine Sulfate 4 mg 05/12/22 23:17 Morphine 4 Mg/1 Ml Inj IV Q4H PRN Pain , Severe (7-10) Ondansetron HCl 4 mg 05/12/22 23:17 Ondansetron 4 Mg/2 Ml Inj IV Q8H PRN Nausea And Vomiting Sodium Chloride 10 ml 05/13/22 10:00 Sodium Chloride 0.9% 10 Ml Flush Syringe IV BID TOSHIA Sodium Chloride 10 ml 05/12/22 23:17 Sodium Chloride 0.9% 10 Ml Flush Syringe IV PRN PRN LINE FLUSH
[2022-05-13] MEDS: ACETAMINOPHEN 325 MG TAB PO PRN (21:15)
--- NOTE | 2022-05-14 09:45 | Progress Note ---
Assessment and Plan Impression: * End stage renal disease * Azotemia * Metabolic acidosis * COVID 19 infection * Anemia secondary to ESRD * Secondary hyperparathyroidism Plan: * Patient is s/p HD yesterday * Continue HD MWF * UF as tolerated * Epogen TIW prn * Renal/HD diet * Management of COVID 19 per primary team Subjective Date of service: 05/14/22 Objective - Vital Signs Vital signs: Vital Signs - 12hr 05/13/22 05/13/22 05/14/22 22:00 22:50 01:00 Temperature 99 F Pulse Rate 78 Respiratory 18 Rate Blood Pressure 106/43 [Right] O2 Sat by Pulse 98 94 94 Oximetry 05/14/22 03:08 Temperature 97.4 F L Pulse Rate 75 Respiratory 16 Rate Blood Pressure 128/62 [Right] O2 Sat by Pulse 97 Oximetry - Lab 05/13/22 11:41 05/13/22 11:41 Most recent lab results Calcium 8.8 mg/dL (8.4-10.2) 05/13/22 11:41 Medications & Allergies - Medications Allergies/Adverse Reactions: Allergies NSAIDS (Non-Steroidal Anti-Inflamma Allergy (Verified 04/28/22 13:30) Rash Sulfa (Sulfonamide Antibiotics) Allergy (Verified 04/28/22 13:30) Rash Home Medications: Home Medications Medication Instructions Recorded Confirmed Last Taken Type Ascorbic Acid [Vitamin C] 500 mg PO DAILY 04/28/22 04/28/22 Unknown History Ferrous Sulfate [Ferrous Sulfate 324 mg PO DAILY 04/28/22 04/28/22 Unknown History 324 MG] Levothyroxine Sodium 200 mcg PO DAILY 04/28/22 04/28/22 Unknown History [Levothyroxine] Venlafaxine [Effexor 37.5mg tab] 37.5 mg PO QDAY 04/28/22 04/28/22 Unknown History carvediloL [Coreg] 12.5 mg PO BID 04/28/22 04/28/22 Unknown History sevelamer HCL [Sevelamer HCl] 800 mg PO TID 04/28/22 04/28/22 Unknown History Benzonatate [Tessalon Perles] 100 mg PO Q8HR PRN #30 cap 05/05/22 Unknown Rx NIFEdipine XL [Procardia Xl] 60 mg PO Q12HR #60 tablet 05/05/22 Unknown Rx Active Medications: Generic Name Dose Route Start Last Admin Trade Name Freq PRN Reason Stop Dose Admin Acetaminophen 650 mg 05/12/22 23:17 05/13/22 21:15 Acetaminophen 325 Mg Tab PO 650 mg Q4H PRN Administration Pain MILD(1-3)/Fever >100.5/KENDALL Albuterol 2 puff 05/13/22 10:46 Albuterol 8.5 Gm Mdi Inhalation IH Q4HRT PRN Shortness Of Breath Famotidine 20 mg 05/13/22 10:00 05/13/22 10:29 Famotidine 20 Mg Tab PO Not Given QAM [facility] Sodium Chloride 100 mls @ 999 mls/hr 05/13/22 09:38 Nacl 0.9% IV HOMER PRN Hypotension Morphine Sulfate 2 mg 05/12/22 23:17 Morphine 2 Mg/1 Ml Inj IV Q4H PRN Pain, Moderate (4-6) Morphine Sulfate 4 mg 05/12/22 23:17 Morphine 4 Mg/1 Ml Inj IV Q4H PRN Pain , Severe (7-10) Ondansetron HCl 4 mg 05/12/22 23:17 Ondansetron 4 Mg/2 Ml Inj IV Q8H PRN Nausea And Vomiting Sodium Chloride 10 ml 05/13/22 10:00 05/13/22 21:15 Sodium Chloride 0.9% 10 Ml Flush Syringe IV 10 ml BID TOSHIA Administration Sodium Chloride 10 ml 05/12/22 23:17 Sodium Chloride 0.9% 10 Ml Flush Syringe IV PRN PRN LINE FLUSH
[2022-05-14] MEDS: FAMOTIDINE 20 MG TAB PO SCH (12:05)
[2022-05-14] MEDS ORDERED: CALCIUM GLUCONATE 2,000 MG in SODIUM CHLORIDE 0.9% 100 ML IV ONE (15:31)
[2022-05-14] MEDS ORDERED: SODIUM CHLORIDE 0.9% 100 ML IV PRN (16:30)
--- NOTE | 2022-05-14 19:53 | Progress Note ---
Assessment and Plan Assessment and Plan VTE prophylaxis?: Mechanical Plan of care discussed with patient/family: Yes - Patient Problems (1) End-stage renal disease on hemodialysis Current Visit: Yes Status: Acute Plan to address problem: Admit the patient to the medical floor. Renal diet. Will consult nephrology for hemodialysis in the morning. Recheck BMP in the morning. Continue home medication (2) CHF (congestive heart failure) Current Visit: No Status: Acute Plan to address problem: Stable. Avoid fluid overload. Maintain input output. Daily weight. Hemodialysis in the morning (3) Volume overload Patient needs emergent hemodialysis (4) Hypothyroidism Current Visit: No Status: Acute Plan to address problem: Stable. We continue the home medication. (5) COVID positive Patient is on room air Oxygen saturations 96% on room air 6) DVT prophylaxis on heparin and GI prophylaxis Subjective Date of service: 05/14/22 Principal diagnosis: ESRD, COVID positive Interval history: 61-year-old morbidly obese female with multiple medical comorbidities including end-stage renal disease on hemodialysis, Thursday, presents stating she wants dialysis. Patient states she is COVID-positive. She tested +9 days ago and had a repeat test per her verbal report, today, and still tested positive. She denies any symptoms at this time. She states that her rehab facility arranged for her to go to dialysis at a new facility that manages patients who are COVID-positive and need dialysis. She states "however they said they could not dialyze me because they did not have the right paperwork." She denies any muscle aches chest pain shortness of breath difficulty breathing palpitations weakness lightheadedness dizziness or any other symptoms. Pain currently 0 out of 10. Patient states she does not know the last time she underwent hemodialysis. In the emergency room patient BUN is 93 and creatinine 5.4. We are going to admit the patient reconsult nephrology for hemodialysis in the morning 05/14/2022 Patient tested positive for COVID Doing well on room air Objective - Constitutional Vitals: Vital Signs - 12hr 05/14/22 05/14/22 05/14/22 10:00 11:33 13:00 Temperature 98.4 F Pulse Rate 80 Respiratory 18 Rate Blood Pressure 123/59 O2 Sat by Pulse 96 96 95 Oximetry General appearance: Present: no acute distress, well-nourished - EENT Eyes: PERRL, EOM intact ENT: hearing intact, clear oral mucosa Ears: bilateral: normal - Neck Neck: supple, normal ROM - Respiratory Respiratory effort: normal Respiratory: bilateral: CTA - Breasts Breasts: normal - Cardiovascular Heart rate: 78 Rhythm: regular Heart Sounds: Present: S1 & S2. Absent: gallop, rub Extremities: pulses intact, No edema, normal color, Full ROM - Gastrointestinal General gastrointestinal: Present: soft, non-tender, non-distended, normal bowel sounds - Genitourinary Female genitourinary: normal - Integumentary Integumentary: clear, warm, dry - Musculoskeletal Musculoskeletal: 1, strength equal bilaterally - Neurologic Neurologic: moves all extremities - Psychiatric Psychiatric: memory intact, appropriate mood/affect, intact judgment & insight - Labs CBC & Chem 7: 05/13/22 11:41 05/13/22 11:41 Labs: Abnormal lab results 05/14/22 Range/Units 11:50 SARS-CoV-2 (PCR) Positive A (Negative)
[2022-05-14] MEDS: ACETAMINOPHEN 325 MG TAB PO PRN (21:28)
[2022-05-15 05:13] VITALS: BP 115/59
--- NOTE | 2022-05-15 07:10 | Discharge Summary ---
Providers - Providers Date of Admission: 05/12/22 23:17 Date of discharge: 05/15/22 Attending physician: ELISE JI 05/12/22 23:17 Consult to Physician [CONS] Routine Comment: Consulting Provider: TETE LUNA Physician Instructions: Reason For Exam: esrd 05/13/22 07:41 Consult to Physician [CONS] Urgent Comment: Consulting Provider: ALEC KRAFT Physician Instructions: Reason For Exam: Renal failure needs Dialysis 05/13/22 09:36 Consult to Case Management [CONS] Routine Services Needed at Discharge: Other Notified:: cm notified Comment:: PLEASE CONFIRM PATIENT'S CHAIR DAY/TIME AT [facility]. Primary care physician: FINANCE TEACHER Hospitalization Condition: Stable Hospital course: Subjective Date of service: 05/15/22 Principal diagnosis: ESRD, COVID positive Interval history: 61-year-old morbidly obese female with multiple medical comorbidities including end-stage renal disease on hemodialysis, Thursday, presents stating she wants dialysis. Patient states she is COVID-positive. She tested +9 days ago and had a repeat test per her verbal report, today, and still tested positive. She denies any symptoms at this time. She states that her rehab facility arranged for her to go to dialysis at a new facility that manages patients who are COVID-positive and need dialysis. She states "however they said they could not dialyze me because they did not have the right paperwork." She denies any muscle aches chest pain shortness of breath difficulty breathing palpitations weakness lightheadedness dizziness or any other symptoms. Pain currently 0 out of 10. Patient states she does not know the last time she underwent hemodialysis. In the emergency room patient BUN is 93 and creatinine 5.4. We are going to admit the patient reconsult nephrology for hemodialysis in the morning 05/14/2022 Patient tested positive for COVID Doing well on room air 05/15/2022 Patient stable Patient be discharged today Patient to continue hemodialysis No medications for COVID 19 No need for Paxlovid Assessment and Plan VTE prophylaxis?: Mechanical Plan of care discussed with patient/family: Yes - Patient Problems (1) End-stage renal disease on hemodialysis Current Visit: Yes Status: Acute Plan to address problem: Admit the patient to the medical floor. Renal diet. Will consult nephrology for hemodialysis in the morning. Recheck BMP in the morning. Continue home medication (2) CHF (congestive heart failure) Current Visit: No Status: Acute Plan to address problem: Stable. Avoid fluid overload. Maintain input output. Daily weight. Hemodialysis in the morning (3) Volume overload Patient needs emergent hemodialysis (4) Hypothyroidism Current Visit: No Status: Acute Plan to address problem: Stable. We continue the home medication. (5) COVID positive Patient is on room air Oxygen saturations 96% on room air 6) DVT prophylaxis on heparin and GI prophylaxis Disposition: HOME / SELF CARE / HOMELESS Final Discharge Diagnosis (Prints w/discharge instructions): Volume overload. End-stage renal disease on hemodialysis. CHF. Hypothyroidism. COVID-positive Time spent for discharge: 35 minutes - Discharge Diagnoses (1) Volume overload Status: Acute (2) CHF (congestive heart failure) Status: Acute (3) COVID-19 Status: Acute (4) End-stage renal disease on hemodialysis Status: Acute (5) Hypothyroidism Status: Acute Core Measure Documentation - Palliative Care Palliative Care/ Comfort Measures: Not Applicable - Core Measures Any of the following diagnoses?: none Exam - Constitutional Vitals: Temp Pulse Resp BP Pulse Ox 97.4 F L 84 16 115/59 94 05/15/22 05:11 05/15/22 05:11 05/15/22 05:11 05/15/22 05:11 05/15/22 05:11 General appearance: Present: no acute distress, well-nourished - EENT Eyes: Present: PERRL ENT: hearing intact, clear oral mucosa - Neck Neck: Present: supple, normal ROM - Respiratory Respiratory effort: normal Respiratory: bilateral: CTA - Cardiovascular Heart rate: 78 Rhythm: regular Heart Sounds: Present: S1 & S2. Absent: rub, click - Extremities Extremities: pulses symmetrical, No edema Peripheral Pulses: within normal limits - Abdominal General gastrointestinal: Present: soft, non-tender, non-distended, normal bowel sounds Female genitourinary: Present: normal - Integumentary Integumentary: Present: clear, warm, dry - Musculoskeletal Musculoskeletal: gait normal, strength equal bilaterally - Psychiatric Psychiatric: appropriate mood/affect, intact judgment & insight - Neurologic Neurologic: CNII-XII intact, moves all extremities Plan Activity: no restrictions Diet: renal Special Instructions: restrict fluid intake to Follow up with: PRIMARY MD KASSANDRA [Primary Care Provider] - 3-5 Days MAYI FRY MD [Staff Physician] - 7 Days
[2022-05-15] MEDS: FAMOTIDINE 20 MG TAB PO SCH (09:44)
== END 2022-05-15 11:47 | DRG 640 ==
LOC: ED 19:51 → 3A 23:17
PROVIDERS: ADMIT Hospitalist; ATTEND Internal Medicine
PROC: 5A1D70Z Performance of Urinary Filtration, Intermittent, Less than 6 Hours Per Day (ICD-10-PCS; principal; 2022-05-13)
PROC: 5A1D70Z Performance of Urinary Filtration, Intermittent, Less than 6 Hours Per Day (ICD-10-PCS; 2022-05-14)
DX: E87.70 Fluid overload, unspecified (principal); N18.6 End stage renal disease; U07.1 COVID-19; I13.2 Hypertensive heart and chronic kidney disease with heart failure and with stage 5 chronic kidney disease, or end stage renal disease; N25.81 Secondary hyperparathyroidism of renal origin; E87.2 Acidosis; I50.9 Heart failure, unspecified; E03.9 Hypothyroidism, unspecified; Z99.2 Dependence on renal dialysis; D63.1 Anemia in chronic kidney disease; E87.5 Hyperkalemia; E66.01 Morbid (severe) obesity due to excess calories; Z68.31 Body mass index [BMI] 31.0-31.9, adult; Z82.49 Family history of ischemic heart disease and other diseases of the circulatory system; Z88.2 Allergy status to sulfonamides; Z88.8 Allergy status to other drugs, medicaments and biological substances
CPT/HCPCS: 36415; 71045; 80048; 85025; 87641; 99285; G0378; J0610; U0003